=== PATIENT | female | born 1965 | race African-American/Black ===

== ENCOUNTER → 2016-09-12 | Outpatient (CLI) | payer BC ==
[2015-04-20 18:06] VITALS: BP 136/51
[~2016-09-12] MED LIST: AZIL1TAB2 PO; CYCL10TA2 PO; FERR-26 PO; GABA-586 PO; Hydrocodone/Acetaminophen PO; LISI-334 PO; MULT1TAB52 PO; OXYC-244 PO; WARF5TAB PO
--- NOTE | 2016-09-12 12:21 | RAD ---
EXAM: DIGITAL SCREEN BILAT W/CAD. HISTORY: Screening. COMPARISON: 08/14/2008. FINDINGS: Digital mammography was performed. Computer-aided detection (CAD) was utilized. The breast parenchyma demonstrates scattered fibroglandular densities (tissue density B). No dominant suspicious mass, suspicious microcalcifications, or architectural distortion is identified. Scattered, benign-appearing calcifications are present in both breasts. IMPRESSION: No mammographic evidence of malignancy. BI-RADS CATEGORY: 2 BENIGN FINDING(S) RECOMMENDED FOLLOW-UP: 12M 12 MONTH FOLLOW-UP PQRS compliance statement: Patient information was entered into a reminder system with a target due date for the next mammogram. Mammography is a sensitive method for finding small breast cancers, but it does not detect them all and is not a substitute for careful clinical examination. A negative mammogram does not negate a clinically suspicious finding and should not result in delay in biopsying a clinically suspicious abnormality. "Our facility is accredited by the [employer] Mammography Program."
== END | disposition home or self-care (01) ==
LOC: MAMMO 11:46
PROVIDERS: ATTEND Family Medicine
DX: Z12.31 Encounter for screening mammogram for malignant neoplasm of breast (principal)
CPT/HCPCS: 77052; G0202; 77067

== ENCOUNTER 2017-10-20 19:01 | Emergency (ER) | payer BC | END 2017-10-20 20:12 | disposition home or self-care (01) | LOC: ER 19:01 | DX: S46.912A Strain of unspecified muscle, fascia and tendon at shoulder and upper arm level, left arm, initial encounter (principal); I10 Essential (primary) hypertension; F17.200 Nicotine dependence, unspecified, uncomplicated; Z96.649 Presence of unspecified artificial hip joint; X58.XXXA Exposure to other specified factors, initial encounter; Y93.89 Activity, other specified; Y92.69 Other specified industrial and construction area as the place of occurrence of the external cause; Y99.8 Other external cause status | CPT/HCPCS: 99283 ==

== ENCOUNTER 2018-12-07 11:26 | Inpatient (IN) | payer BC ==
[~2018-12-07] VITALS: Ht 165.1 cm; Wt 108.1 kg
[2018-12-07] VITALS (10 sets, daily range): BP systolic 149–187; BP diastolic 52–81
[~2018-12-07 11:26] MED LIST changes: +CYCL5TAB PO; -FERR-26 PO; +FERR325T14 PO; -GABA-586 PO; +GABA300C18 PO; -OXYC-244 PO; +OXYC1TAB19 PO; +WARF-78 PO; -WARF5TAB PO
[2018-12-07] MEDS ORDERED: IV NORMAL SALINE 1000ML BAG 1,000 ML IV SCH (11:45)
[2018-12-07 12:05] LABS: BASO # 0.1 x10^3/uL (0.0-0.2); BASO % 1 % (0-3); EOS # 0.3 x10^3/uL (0.0-0.7); EOS % 5 % (0-3); HEMATOCRIT 43.3 % (36.0-47.0); HEMOGLOBIN 14.3 g/dL (12.0-15.5); LYMPH # 1.3 x10^3/uL (1.0-4.8); LYMPH % 18 % (24-48); MEAN CORPUSCULAR HEMOGLOBIN 31 pg (25-35); MEAN CORPUSCULAR HGB CONC 33 g/dL (31-37); MEAN CORPUSCULAR VOLUME 93 fL (79-100); MONO # 0.7 x10^3/uL (0.0-1.1); MONO % 10 % (0-9); NEUT # 4.6 x10^3uL (1.8-7.7); NEUT % 66 % (31-73); PLATELET COUNT 184 x10^3/uL (140-400); RED BLOOD COUNT 4.64 x10^6/uL (3.50-5.40); RED CELL DISTRIBUTION WIDTH 14.7 % (11.5-14.5); WHITE BLOOD COUNT 6.9 x10^3/uL (4.0-11.0)
--- NOTE | 2018-12-07 12:08 | RAD ---
EXAM: Chest, single view. HISTORY: Shortness of breath. COMPARISON: 01/16/2015 FINDINGS: A frontal view of the chest obtained. There is mild diffuse central predominant increased interstitial opacity. There is cardiomegaly. There is no consolidation, pleural effusion or pneumothorax. There is cervical spinal fusion instrumentation. IMPRESSION: 1. Mild central predominant increased interstitial opacity without zia congestion. 2. Cardiomegaly. Electronically signed by: Mami Montalvo MD (12/07/2018 12:05 PM) [place] [id number]
[2018-12-07] MEDS ORDERED: IPRATRPIUM/ALBUTEROL 0.5/2.5MG 3 ML NEBU. NEB ONE (12:15)
[2018-12-07] MEDS ORDERED: methylPREDNISolone SOD SUCC PF 125 MG/2 ML VIAL. IV ONE ×2 (12:15→12:30)
[2018-12-07] MEDS ORDERED: hydrALAZINE 20 MG/ML VIAL. IVP ONE ×2 (12:15→13:30)
[2018-12-07 12:19] LABS: CALCIUM 8.8 mg/dL (8.5-10.1); CREATININE 1.1 mg/dL (0.6-1.0); GFR 62.6
[2018-12-07 12:25] LABS: ALBUMIN 3.2 g/dL (3.4-5.0); ALBUMIN/GLOBULIN RATIO 0.9 (1.0-1.7); TOTAL BILIRUBIN 0.8 mg/dL (0.2-1.0); TOTAL PROTEIN 6.9 g/dL (6.4-8.2)
[2018-12-07] MEDS: niCARdipine 50 MG in IV NORMAL SALINE 250ML 250 ML IV PRN ×3 (13:39→19:29)
--- NOTE | 2018-12-07 13:50 | PHYS DOC ---
Past Medical History Past Medical History: Hypertension Past Surgical History: Hip Replacement Additional Past Surgical Histo: DISC REPLACEMENT Alcohol Use: None Drug Use: None Adult General Chief Complaint Chief Complaint: SHORTNESS OF BREATH HPI HPI Patient is a 52 year old female who presents with complaining of shortness of breath. Patient complaining of intermittent episodes of shortness of breath with exertion for the last 2-3 weeks that getting worse today. Patient complaining of substernal chest pain associated with shortness of breath and headache and generalized weakness. Patient states he had history of hypertension but doesn't take his medication as instructed. She denies fever and chills, focal neuro deficit, nausea and vomiting, blurred vision. Patient had blood pressure of more than 240 at arrival to ER. Review of Systems Review of Systems Constitutional: Denies fever or chills [] Eyes: Denies change in visual acuity, redness, or eye pain [] HENT: Denies nasal congestion or sore throat [] Respiratory: Denies cough, reports shortness of breath [] Cardiovascular: No additional information not addressed in HPI [] GI: Denies abdominal pain, nausea, vomiting, bloody stools or diarrhea [] : Denies dysuria or hematuria [] Musculoskeletal: Denies back pain or joint pain [] Integument: Denies rash or skin lesions [] Neurologic: Denies headache, focal weakness or sensory changes [] Endocrine: Denies polyuria or polydipsia [] All other systems were reviewed and found to be within normal limits, except as documented in this note. Current Medications Current Medications Current Medications Medications (Trade) Dose Ordered Sig/Nguyen Start Time Stop Time Status Last Admin Dose Admin Albuterol/ Ipratropium (Duoneb) 3 ml 1X ONCE 12/07/18 12:15 12/07/18 12:16 DC 12/07/18 12:37 3 ML Hydralazine HCl (Apresoline Inj) 10 mg 1X ONCE 12/07/18 13:30 12/07/18 13:31 DC 12/07/18 13:36 10 MG Methylprednisolone Sodium Succinate (SOLU-Medrol 125MG VIAL) 125 mg 1X ONCE 12/07/18 12:30 12/07/18 12:31 DC Nicardipine HCl 50 mg/Sodium Chloride 250 ml @ 25 mls/hr CONT PRN 12/07/18 13:30 12/07/18 13:39 25 MLS/HR Sodium Chloride 1,000 ml @ 1,000 mls/hr Q1H 12/07/18 11:45 12/07/18 12:44 DC 12/07/18 12:25 1,000 MLS/HR Allergies Allergies Allergies Coded Allergies Type Severity Reaction Last Updated Verified No Known Drug Allergies 04/17/15 No Physical Exam Physical Exam Constitutional: Well developed, well nourished, mild distress, non-toxic appearance. [] HENT: Normocephalic, atraumatic. Eyes: PERRLA, EOMI, conjunctiva normal, no discharge. [] Neck: Normal range of motion, no tenderness, supple, no stridor. [] Cardiovascular: Bradycardia, no murmur [] Lungs & Thorax: Bilateral breath sounds clear to auscultation [] Abdomen: Bowel sounds normal, soft, no tenderness, no masses, no pulsatile masses. [] Skin: Warm, dry, no erythema, no rash. [] Back: No tenderness, no CVA tenderness. [] Extremities: No tenderness, no cyanosis, no clubbing, ROM intact, no edema. [] Neurologic: Alert and oriented X 3, normal motor function, normal sensory function, no focal deficits noted. [] Psychologic: Affect normal, judgement normal, mood normal. [] Current Patient Data Vital Signs Vital Signs Date Time Temp Pulse Resp B/P (MAP) Pulse Ox O2 Delivery O2 Flow Rate FiO2 12/07/18 13:15 50 32 228/105 (146) 12/07/18 12:40 94 Room Air 12/07/18 11:26 98.8 98.8 Lab Values Laboratory Tests Test 12/07/18 11:50 White Blood Count 6.9 x10^3/uL (4.0-11.0) Red Blood Count 4.64 x10^6/uL (3.50-5.40) Hemoglobin 14.3 g/dL (12.0-15.5) Hematocrit 43.3 % (36.0-47.0) Mean Corpuscular Volume 93 fL (79-100) Mean Corpuscular Hemoglobin 31 pg (25-35) Mean Corpuscular Hemoglobin Concent 33 g/dL (31-37) Red Cell Distribution Width 14.7 % (11.5-14.5) H Platelet Count 184 x10^3/uL (140-400) Neutrophils (%) (Auto) 66 % (31-73) Lymphocytes (%) (Auto) 18 % (24-48) L Monocytes (%) (Auto) 10 % (0-9) H Eosinophils (%) (Auto) 5 % (0-3) H Basophils (%) (Auto) 1 % (0-3) Neutrophils # (Auto) 4.6 x10^3uL (1.8-7.7) Lymphocytes # (Auto) 1.3 x10^3/uL (1.0-4.8) Monocytes # (Auto) 0.7 x10^3/uL (0.0-1.1) Eosinophils # (Auto) 0.3 x10^3/uL (0.0-0.7) Basophils # (Auto) 0.1 x10^3/uL (0.0-0.2) Prothrombin Time 12.9 SEC (11.7-14.0) Prothrombin Time INR 1.0 (0.8-1.1) D-Dimer (Kaley) 0.65 ug/mlFEU (0.00-0.50) H Sodium Level 141 mmol/L (136-145) Potassium Level 4.0 mmol/L (3.5-5.1) Chloride Level 104 mmol/L (98-107) Carbon Dioxide Level 28 mmol/L (21-32) Anion Gap 9 (6-14) Blood Urea Nitrogen 17 mg/dL (7-20) Creatinine 1.1 mg/dL (0.6-1.0) H Estimated GFR (Cockcroft-Gault) 62.6 BUN/Creatinine Ratio 15 (6-20) Glucose Level 100 mg/dL (70-99) H Lactic Acid Level 0.8 mmol/L (0.4-2.0) Calcium Level 8.8 mg/dL (8.5-10.1) Total Bilirubin 0.8 mg/dL (0.2-1.0) Aspartate Amino Transferase (AST) 27 U/L (15-37) Alanine Aminotransferase (ALT) 47 U/L (14-59) Alkaline Phosphatase 99 U/L (46-116) Creatine Kinase 214 U/L (26-192) H Troponin I Quantitative 0.153 ng/mL (0.000-0.055) SN-Jgr-B-Type Natriuretic Peptide 2166 pg/mL (0-124) H Total Protein 6.9 g/dL (6.4-8.2) Albumin 3.2 g/dL (3.4-5.0) L Albumin/Globulin Ratio 0.9 (1.0-1.7) L Triglycerides Level 46 mg/dL (0-150) Cholesterol Level 164 mg/dL (0-200) LDL Cholesterol, Calculated 106 mg/dL (0-100) H VLDL Cholesterol, Calculated 9 mg/dL (0-40) Non-HDL Cholesterol Calculated 115 mg/dL (0-129) HDL Cholesterol 49 mg/dL (40-60) Cholesterol/HDL Ratio 3.3 Thyroid Stimulating Hormone (TSH) 0.801 uIU/mL (0.358-3.74) Laboratory Tests 12/07/18 11:50 Laboratory Tests 12/07/18 11:50 EKG EKG Patient interpreted by me. EKG at 1142 showed sinus bradycardia at rate of 57 with multiple artifact, right john axis, no acute ST and T-wave abnormalities, Radiology/Procedures Radiology/Procedures [facility] [address] [place] [address] IMAGING REPORT Signed PATIENT: LEXY JON ACCOUNT: [id number] : 1965 LOCATION: ER AGE: 52 SEX: F EXAM STATUS: REG ER ORD. PHYSICIAN: MARTHA VALENCIA MD REASON: shortness of breath PROCEDURE: PORTABLE CHEST 1V EXAM: Chest, single view. HISTORY: Shortness of breath. COMPARISON: 01/16/2015 FINDINGS: A frontal view of the chest obtained. There is mild diffuse central predominant increased interstitial opacity. There is cardiomegaly. There is no consolidation, pleural effusion or pneumothorax. There is cervical spinal fusion instrumentation. IMPRESSION: 1. Mild central predominant increased interstitial opacity without zia congestion. 2. Cardiomegaly. Electronically signed by: Mami Car MD (12/07/2018 12:05 PM) [facility] DICTATED and SIGNED BY: MAMI CAR MD DATE: 12/07/18 3301 Course & Med Decision Making Course & Med Decision Making Pertinent Labs and Imaging studies reviewed. (See chart for details) Evaluation of patient in ER showed 52-year-old male patient with history of hypertension without taking her medication presented to ER with complaining of shortness of breath and chest pain and headache. Patient had blood pressure more than 240/140 with bradycardia at arrival to ER. Patient treated with hydralazine IV 10 mg 2 and coughing today because of intermittent elevation of blood pressure. Patient requiring admission for further evaluation and treatment. Discussed with Dr. Aguilera who is in agreement with admission. Discussed findings and plan with patient and family, who acknowledge understanding and agreement. Dragon Disclaimer Dragon Disclaimer This electronic medical record was generated, in whole or in part, using a voice recognition dictation system. Departure Departure Impression: Primary Impression: Malignant hypertension Additional Impressions: Elevated troponin I level CHF (congestive heart failure) Shortness of breath Disposition: ADMITTED INPATIENT (@1348) Admitting Physician: Lindsay Aguilera (accepted admission at 1347) Condition: GUARDED Referrals: BROOKE HOLLINS MD (PCP) Critical Care Time Critical care time was 60 minutes exclusive of procedures. Problem Qualifiers MARTHA VALENCIA MD Dec 07, 2018 13:50
[2018-12-07] MEDS ORDERED: oxyCODONE/APAP 7.5/325 1 TAB TABLET PO PRN (14:00)
[2018-12-07] MEDS ORDERED: TEMAZEPAM 7.5 MG CAPSULE PO PRN (14:15)
--- NOTE | 2018-12-07 14:19 | PDOC1 ---
History and Physical Date of Admission Date of Admission DATE: 12/07/18 TIME: 14:15 Identification/Chief Complaint Chief Complaint Headache, intermittent chest pain, SOA Source Source: Caregiver, Chart review, Patient History of Present Illness History of Present Illness 42-year-old obese female who does not see a PCP regularly, admits to not being compliant with her combo diuretic/ARB pill. Comes in because of intermittent SOA, left-sided chest pain and headache for about 2 weeks. Blood pressure is 240/130 on arrival. Give hydralazine but no resolve, now on Cardene drip with blood pressure 200s. Mild troponin 0.153 with a BNP of 2166. Eyes are flushed, still looks uncomfortable headache and neck pain. We'll admit to ICU for hypertensive emergency. Seen at ER, dw family my plan. SHe is not taking gabapentin anymore-she had that then she had neck surgery She is not taking warfarin anymore-she was put on it after an orthopedic surgery Past Medical History Cardiovascular: HTN, Hyperlipidemia Pulmonary: No pertinent hx GI: Peptic Ulcer disease Heme/Onc: No pertinent hx Hepatobiliary: No pertinent hx Psych: No pertinent hx Musculoskeletal: Osteoarthritis Rheumatologic: No pertinent hx Infectious disease: No pertinent hx Renal/: No pertinent hx Endocrine: No pertinent hx Past Surgical History Past Surgical History: Other (neck sx) Family History Family History: Diabetes, Heart Disease Social History Smoke: <1 pack per day ALCOHOL: none Drugs: None Current Problem List Problem List Problems Medical Problems: (1) CHF (congestive heart failure) Status: Acute (2) Elevated troponin I level Status: Acute (3) Malignant hypertension Status: Acute (4) Shortness of breath Status: Acute Current Medications Current Medications Current Medications Sodium Chloride 1,000 ml @ 1,000 mls/hr Q1H IV Last administered on 12/07/18at 12:25; Start 12/07/18 at 11:45; Stop 12/07/18 at 12:44; Status DC Albuterol/ Ipratropium (Duoneb) 3 ml 1X ONCE NEB Last administered on at 12:37; Start 12/07/18 at 12:15; Stop 12/07/18 at 12:16; Status DC Methylprednisolone Sodium Succinate (SOLU-Medrol 125MG VIAL) 150 mg 1X ONCE IV Last administered on 12/07/18at 12:23; Start 12/07/18 at 12:15; Stop 12/07/18 at 12:24; Status DC Hydralazine HCl (Apresoline Inj) 10 mg 1X ONCE IVP Last administered on at 12:24; Start 12/07/18 at 12:15; Stop 12/07/18 at 12:16; Status DC Methylprednisolone Sodium Succinate (SOLU-Medrol 125MG VIAL) 125 mg 1X ONCE IV ; Start 12/07/18 at 12:30; Stop 12/07/18 at 12:31; Status DC Hydralazine HCl (Apresoline Inj) 10 mg 1X ONCE IVP Last administered on at 13:36; Start 12/07/18 at 13:30; Stop 12/07/18 at 13:31; Status DC Nicardipine HCl 50 mg/Sodium Chloride 250 ml @ 25 mls/hr CONT PRN IV SEE I/O RECORD Last administered on 12/07/18at 13:39; Start 12/07/18 at 13:30 Ferrous Sulfate (Feosol) 325 mg BID PO ; Start 12/07/18 at 21:00 Gabapentin (Neurontin) 300 mg TID PO ; Start 12/07/18 at 15:00 Oxycodone/ Acetaminophen (Percocet 7.5/ 325) 1 tab PRN Q4HRS PRN PO pain relief ; Start 12/07/18 at 14:00 Non-Formulary Medication (Azilsartan Med/ Chlorthalidone (Edarbyclor 40-25 Mg Tablet)) 1 each DAILY PO ; Start 12/08/18 at 09:00; Status UNV Cyclobenzaprine HCl (Flexeril) 5 mg QHS PO ; Start 12/07/18 at 21:00 Multivitamins (Thera M Plus) 1 tab DAILY PO ; Start 12/07/18 at 15:00 Non-Formulary Medication (Warfarin Sodium (Coumadin)) 1 tab DAILY PO ; Start 06/18 at 09:00; Status UNV Lisinopril (Prinivil) 10 mg DAILY PO ; Start 12/07/18 at 15:00; Stop 12/07/18 at 15:00; Status DC Hydrochlorothiazide (Hydrodiuril) 25 mg DAILY PO ; Start 4/9/19 at 15:00 Aspirin (Ecotrin) 325 mg DAILYWBKFT PO ; Start 12/07/18 at 15:00 Losartan Potassium (Cozaar) 50 mg DAILY PO ; Start 12/07/18 at 15:00 Chlorthalidone (Thalitone) 25 mg DAILY PO ; Start 12/07/18 at 15:00 Active Scripts Active Cyclobenzaprine Hcl 5 Mg Tablet 1 Tab PO QHS Neurontin (Gabapentin) 300 Mg Capsule 300 Mg PO TID Reported Percocet 7.5-325 Mg Tablet (Oxycodone/Acetaminophen) 1 Each Tablet 1-2 Tab PO PRN Q4HRS PRN LAST DOSE GIVEN: DATE:04-20-15 TIME:12:30 p.m. NEXT DOSE DUE: DATE:04-20-15 TIME:4:30 p.m. if needed for pain Coumadin (Warfarin Sodium) 5 Mg Tablet 1 Tab PO DAILY Ferrous Sulfate 325 Mg Tablet 1 Tab PO BID Multivitamins (Multivitamin) 1 Each Tablet 1 Each PO DAILY Edarbyclor 40-25 Mg Tablet (Azilsartan/Chlorthalidone) 1 Each Tablet 1 Each PO DAILY Allergies Allergies: Coded Allergies: No Known Drug Allergies (Unverified , 04/17/15) ROS Review of System As per history of present illness, the rest of ROS 14 point negative Physical Exam General: Alert, Oriented X3, Cooperative, No acute distress, Other (looks uncomfortable) HEENT: Atraumatic, EOMI, Other (eyes are flushed) Lungs: Clear to auscultation, Normal air movement Heart: S1S2, RRR, no thrills, no rubs, no gallops, no murmurs Cardiovascular: S1, S2 Breasts: Normal, Rt breast nml w/o mass, Lt breast nml w/o mass, Nipples normal Abdomen: Normal bowel sounds, Soft, No tenderness, No hepatosplenomegaly, No masses Rectal Exam: not examined PELVIC: Nml ext genitalia Extremities: No clubbing, No cyanosis, No edema, Normal pulses, No tenderness/ swelling Skin: No rashes, No breakdown, No significant lesion Neuro: Normal gait, Normal speech, Strength at 5/5 X4 ext, Normal tone, Sensation intact, Cranial nerves 3-12 NL, Reflexes 2+ Psych/Mental Status: Mental status NL, Mood NL Vitals Vitals Vital Signs Date Time Temp Pulse Resp B/P (MAP) Pulse Ox O2 Delivery O2 Flow Rate FiO2 12/07/18 13:51 48 27 199/82 (121) 99 Nasal Cannula 3.0 12/07/18 11:26 98.8 98.8 Labs Labs Laboratory Tests Test 12/07/18 11:50 White Blood Count 6.9 x10^3/uL (4.0-11.0) Red Blood Count 4.64 x10^6/uL (3.50-5.40) Hemoglobin 14.3 g/dL (12.0-15.5) Hematocrit 43.3 % (36.0-47.0) Mean Corpuscular Volume 93 fL (79-100) Mean Corpuscular Hemoglobin 31 pg (25-35) Mean Corpuscular Hemoglobin Concent 33 g/dL (31-37) Red Cell Distribution Width 14.7 % (11.5-14.5) Platelet Count 184 x10^3/uL (140-400) Neutrophils (%) (Auto) 66 % (31-73) Lymphocytes (%) (Auto) 18 % (24-48) Monocytes (%) (Auto) 10 % (0-9) Eosinophils (%) (Auto) 5 % (0-3) Basophils (%) (Auto) 1 % (0-3) Neutrophils # (Auto) 4.6 x10^3uL (1.8-7.7) Lymphocytes # (Auto) 1.3 x10^3/uL (1.0-4.8) Monocytes # (Auto) 0.7 x10^3/uL (0.0-1.1) Eosinophils # (Auto) 0.3 x10^3/uL (0.0-0.7) Basophils # (Auto) 0.1 x10^3/uL (0.0-0.2) D-Dimer (Kaley) 0.65 ug/mlFEU (0.00-0.50) Sodium Level 141 mmol/L (136-145) Potassium Level 4.0 mmol/L (3.5-5.1) Chloride Level 104 mmol/L (98-107) Carbon Dioxide Level 28 mmol/L (21-32) Anion Gap 9 (6-14) Blood Urea Nitrogen 17 mg/dL (7-20) Creatinine 1.1 mg/dL (0.6-1.0) Estimated GFR (Cockcroft-Gault) 62.6 BUN/Creatinine Ratio 15 (6-20) Glucose Level 100 mg/dL (70-99) Lactic Acid Level 0.8 mmol/L (0.4-2.0) Calcium Level 8.8 mg/dL (8.5-10.1) Total Bilirubin 0.8 mg/dL (0.2-1.0) Aspartate Amino Transf (AST/SGOT) 27 U/L (15-37) Alanine Aminotransferase (ALT/SGPT) 47 U/L (14-59) Alkaline Phosphatase 99 U/L (46-116) Creatine Kinase 214 U/L (26-192) Troponin I Quantitative 0.153 ng/mL (0.000-0.055) FK-Gde-D-Type Natriuretic Peptide 2166 pg/mL (0-124) Total Protein 6.9 g/dL (6.4-8.2) Albumin 3.2 g/dL (3.4-5.0) Albumin/Globulin Ratio 0.9 (1.0-1.7) Laboratory Tests Test 12/07/18 11:50 White Blood Count 6.9 x10^3/uL (4.0-11.0) Red Blood Count 4.64 x10^6/uL (3.50-5.40) Hemoglobin 14.3 g/dL (12.0-15.5) Hematocrit 43.3 % (36.0-47.0) Mean Corpuscular Volume 93 fL (79-100) Mean Corpuscular Hemoglobin 31 pg (25-35) Mean Corpuscular Hemoglobin Concent 33 g/dL (31-37) Red Cell Distribution Width 14.7 % (11.5-14.5) Platelet Count 184 x10^3/uL (140-400) Neutrophils (%) (Auto) 66 % (31-73) Lymphocytes (%) (Auto) 18 % (24-48) Monocytes (%) (Auto) 10 % (0-9) Eosinophils (%) (Auto) 5 % (0-3) Basophils (%) (Auto) 1 % (0-3) Neutrophils # (Auto) 4.6 x10^3uL (1.8-7.7) Lymphocytes # (Auto) 1.3 x10^3/uL (1.0-4.8) Monocytes # (Auto) 0.7 x10^3/uL (0.0-1.1) Eosinophils # (Auto) 0.3 x10^3/uL (0.0-0.7) Basophils # (Auto) 0.1 x10^3/uL (0.0-0.2) D-Dimer (Kaley) 0.65 ug/mlFEU (0.00-0.50) Sodium Level 141 mmol/L (136-145) Potassium Level 4.0 mmol/L (3.5-5.1) Chloride Level 104 mmol/L (98-107) Carbon Dioxide Level 28 mmol/L (21-32) Anion Gap 9 (6-14) Blood Urea Nitrogen 17 mg/dL (7-20) Creatinine 1.1 mg/dL (0.6-1.0) Estimated GFR (Cockcroft-Gault) 62.6 BUN/Creatinine Ratio 15 (6-20) Glucose Level 100 mg/dL (70-99) Lactic Acid Level 0.8 mmol/L (0.4-2.0) Calcium Level 8.8 mg/dL (8.5-10.1) Total Bilirubin 0.8 mg/dL (0.2-1.0) Aspartate Amino Transf (AST/SGOT) 27 U/L (15-37) Alanine Aminotransferase (ALT/SGPT) 47 U/L (14-59) Alkaline Phosphatase 99 U/L (46-116) Creatine Kinase 214 U/L (26-192) Troponin I Quantitative 0.153 ng/mL (0.000-0.055) DU-Rts-C-Type Natriuretic Peptide 2166 pg/mL (0-124) Total Protein 6.9 g/dL (6.4-8.2) Albumin 3.2 g/dL (3.4-5.0) Albumin/Globulin Ratio 0.9 (1.0-1.7) VTE Prophylaxis Ordered VTE Prophylaxis Devices: Yes VTE Pharmacological Prophylaxi: Yes Assessment/Plan Assessment/Plan Hypertensive emergency Obesity, BMI 42 Noncompliance History neck surgery-off gabapentin and flexeril History of orthopedic surgery-off warfarin Plan: Admit 2 [place] CArdene gtt cards consult ICU Check lipids I did start lisinopril HCTZ combo pill for tomorrow Full code Seen at ER discussed with family Further recs pending course Other supprotive meds CC30 NAVEED CAR MD Dec 07, 2018 14:19
[2018-12-07 14:25] LABS: PROTHROMBIN TIME PATIENT 12.9 SEC (11.7-14.0)
[2018-12-07] MEDS ORDERED: ONDANSETRON PF 4 MG/2 ML VIAL. ONE (14:32)
[2018-12-07] MEDS: ASPIRIN ENTERIC COATED 325 MG TABLET.DR. PO SCH (14:58)
[2018-12-07] MEDS: CHLORTHALIDONE 25 MG TABLET. PO SCH (14:58)
[2018-12-07] MEDS: ONDANSETRON PF 4 MG/2 ML VIAL. IV PRN (14:59)
[2018-12-07] MEDS ORDERED: LISINOPRIL 10 MG TABLET PO SCH (15:00)
[2018-12-07] MEDS ORDERED: hydroCHLOROthiazide 25 MG TABLET PO SCH (15:00)
[2018-12-07] MEDS ORDERED: LOSARTAN POTASSIUM 50 MG TABLET. PO SCH (15:00)
[2018-12-07] MEDS ORDERED: GABAPENTIN 300 MG CAPSULE. PO SCH (15:00)
[2018-12-07] MEDS ORDERED: MULTIVITAMIN with MINERAL TABLET. PO SCH (15:00)
[2018-12-07 15:36] LABS: CHOLESTEROL/HDL RATIO 3.3
--- NOTE | 2018-12-07 15:51 | PDOC2 ---
KARINA FLAHERTY OPERATIONAL COMMUNICATION CHIEF 12/07/18 1551: CARDIAC CONSULT DATE OF CONSULT Date of Consult DATE: 12/07/18 TIME: 15:42 REASON FOR CONSULT Reason for Consult: HTN,SOA REFERRING PHYSICIAN Referring Physician: Endy SOURCE Source: Chart review, Patient HISTORY OF PRESENT ILLNESS HISTORY OF PRESENT ILLNESS This is a pleasant 52 yo female admitted for complains of SOA and not feeling well. Reports that in the last 2 weeks she has becoming more SOA, Her legs have become swollen. No chest pain per se but at times has some tingling to her left hand. No jaw tightness but has been seeing spots at times but GARCIA. Positive for orthopnea, feeling bloated. Positive for PND. She has been skipping her BP meds at times. Positive for DAILEY but no exertional chest pain. [place] at times her chest is pounding. she does not see any outpt liaison planner. No ETOH or recreational drug use but chronic tobacco user. Reports high dose routine use of NSAID, consumption of soda, processed food and has gained some wt in the last 6 months at least about 20 pounds. She may have been told of MYCHAL in the past but no recollection of her being told of CPAP need. No past hx of CAD, arrhythmias. No passing out, falls , any recent infection or any recent injury. PAST MEDICAL HISTORY Cardiovascular: HTN, Hyperlipidemia, Valve insufficiency, Pulmonary hypertension Pulmonary: No pertinent hx CENTRAL NERVOUS SYSTEM: Other (None) GI: GERD, Peptic Ulcer disease Heme/Onc: No pertinent hx Hepatobiliary: No pertinent hx Psych: No pertinent hx Musculoskeletal: low back pain, Osteoarthritis, Other (lumbar and cervical stenosis) Rheumatologic: No pertinent hx Infectious disease: No pertinent hx ENT: No pertinent hx Renal/: No pertinent hx Endocrine: No pertinent hx Dermatology: No pertinent hx PAST SURGICAL HISTORY Past Surgical History: Total hip replacement (right), Other (cervical fusion) FAMILY HISTORY Family History Diabetes (father), Heart Disease (mother; sister with cardiac dysrhythmia and ICD) SOCIAL HISTORY Smoke: 1 pack per day (>30 yrs) ALCOHOL: none Drugs: None Lives: with Family CURRENT MEDICATIONS CURRENT MEDICATIONS Current Medications Medications (Trade) Dose Ordered Sig/Nguyen Route PRN Reason Start Time Stop Time Status Last Admin Dose Admin Sodium Chloride 1,000 ml @ 1,000 mls/hr Q1H IV 12/07/18 11:45 12/07/18 12:44 DC 12/07/18 12:25 Albuterol/ Ipratropium (Duoneb) 3 ml 1X ONCE NEB 12/07/18 12:15 12/07/18 12:16 DC 12/07/18 12:37 Methylprednisolone Sodium Succinate (SOLU-Medrol 125MG VIAL) 150 mg 1X ONCE IV 12/07/18 12:15 12/07/18 12:24 DC 12/07/18 12:23 Hydralazine HCl (Apresoline Inj) 10 mg 1X ONCE IVP 12/07/18 12:15 12/07/18 12:16 DC 12/07/18 12:24 Hydralazine HCl (Apresoline Inj) 10 mg 1X ONCE IVP 12/07/18 13:30 12/07/18 13:31 DC 12/07/18 13:36 Nicardipine HCl 50 mg/Sodium Chloride 250 ml @ 25 mls/hr CONT PRN IV SEE I/O RECORD 12/07/18 13:30 12/07/18 13:39 Multivitamins (Thera M Plus) 1 tab DAILY PO 12/07/18 15:00 12/07/18 14:58 Hydrochlorothiazide (Hydrodiuril) 25 mg DAILY PO 12/07/18 15:00 12/07/18 15:34 DC 12/07/18 14:59 Aspirin (Ecotrin) 325 mg DAILYWBKFT PO 12/07/18 15:00 12/07/18 14:58 Chlorthalidone (Thalitone) 25 mg DAILY PO 12/07/18 15:00 12/07/18 14:58 Ondansetron HCl (Zofran) 4 mg PRN Q6HRS PRN IV NAUSEA/VOMITING 12/07/18 14:45 12/07/18 14:59 ALLERGIES ALLERGIES: Coded Allergies: No Known Drug Allergies (Unverified , 04/17/15) ROS Review of System 14 point ROS evaluated with pertinent positives noted per HPI PHYSICAL EXAM General: Alert, Oriented X3, Cooperative, No acute distress HEENT: Atraumatic, Mucous membr. moist/pink Lungs: Other (diminished bases) Heart: Regular rate (SR), Other (3/6 systolic murmur to LLS border; S4) Extremities: No cyanosis, Other (3+ bilateral LE pitting edema) Skin: No breakdown, No significant lesion Neuro: Normal speech, Sensation intact Psych/Mental Status: Mental status NL, Mood NL MUSCULOSKELETAL: Osteoarthritic changes both hands VITALS VITALS Vital Signs Date Time Temp Pulse Resp B/P (MAP) Pulse Ox O2 Delivery O2 Flow Rate FiO2 12/07/18 15:00 54 22 173/72 (105) 94 Nasal Cannula 2.0 12/07/18 14:45 98.1 98.1 LABS Lab: Laboratory Tests Test 12/07/18 11:50 White Blood Count 6.9 x10^3/uL (4.0-11.0) Red Blood Count 4.64 x10^6/uL (3.50-5.40) Hemoglobin 14.3 g/dL (12.0-15.5) Hematocrit 43.3 % (36.0-47.0) Mean Corpuscular Volume 93 fL (79-100) Mean Corpuscular Hemoglobin 31 pg (25-35) Mean Corpuscular Hemoglobin Concent 33 g/dL (31-37) Red Cell Distribution Width 14.7 % (11.5-14.5) Platelet Count 184 x10^3/uL (140-400) Neutrophils (%) (Auto) 66 % (31-73) Lymphocytes (%) (Auto) 18 % (24-48) Monocytes (%) (Auto) 10 % (0-9) Eosinophils (%) (Auto) 5 % (0-3) Basophils (%) (Auto) 1 % (0-3) Neutrophils # (Auto) 4.6 x10^3uL (1.8-7.7) Lymphocytes # (Auto) 1.3 x10^3/uL (1.0-4.8) Monocytes # (Auto) 0.7 x10^3/uL (0.0-1.1) Eosinophils # (Auto) 0.3 x10^3/uL (0.0-0.7) Basophils # (Auto) 0.1 x10^3/uL (0.0-0.2) Prothrombin Time 12.9 SEC (11.7-14.0) Prothromb Time International Ratio 1.0 (0.8-1.1) D-Dimer (Kaley) 0.65 ug/mlFEU (0.00-0.50) Sodium Level 141 mmol/L (136-145) Potassium Level 4.0 mmol/L (3.5-5.1) Chloride Level 104 mmol/L (98-107) Carbon Dioxide Level 28 mmol/L (21-32) Anion Gap 9 (6-14) Blood Urea Nitrogen 17 mg/dL (7-20) Creatinine 1.1 mg/dL (0.6-1.0) Estimated GFR (Cockcroft-Gault) 62.6 BUN/Creatinine Ratio 15 (6-20) Glucose Level 100 mg/dL (70-99) Lactic Acid Level 0.8 mmol/L (0.4-2.0) Calcium Level 8.8 mg/dL (8.5-10.1) Total Bilirubin 0.8 mg/dL (0.2-1.0) Aspartate Amino Transf (AST/SGOT) 27 U/L (15-37) Alanine Aminotransferase (ALT/SGPT) 47 U/L (14-59) Alkaline Phosphatase 99 U/L (46-116) Creatine Kinase 214 U/L (26-192) Troponin I Quantitative 0.153 ng/mL (0.000-0.055) HW-Std-L-Type Natriuretic Peptide 2166 pg/mL (0-124) Total Protein 6.9 g/dL (6.4-8.2) Albumin 3.2 g/dL (3.4-5.0) Albumin/Globulin Ratio 0.9 (1.0-1.7) Triglycerides Level 46 mg/dL (0-150) Cholesterol Level 164 mg/dL (0-200) LDL Cholesterol, Calculated 106 mg/dL (0-100) VLDL Cholesterol, Calculated 9 mg/dL (0-40) Non-HDL Cholesterol Calculated 115 mg/dL (0-129) HDL Cholesterol 49 mg/dL (40-60) Cholesterol/HDL Ratio 3.3 ECHOCARDIOGRAM ECHOCARDIOGRAM <Conclusion> The left ventricle is normal size. The left ventricular systolic function is normal and the ejection fraction is within normal range. The Ejection Fraction is 55-60%. There is borderline concentric left ventricular hypertrophy. The interatrial septum is intact with no evidence for an atrial septal defect or patent foramen ovale as noted on 2-D or Doppler imaging. A technically difficult bubble study showed no interatrial shunt. There is no significant aortic valvular stenosis. Doppler and Color Flow revealed no significant aortic regurgitation. Doppler and Color Flow revealed mild mitral regurgitation. Doppler and Color Flow revealed mild tricuspid regurgitation. The PA pressure was estimated at 44 mmHg. There is a trace pericardial effusion with no hemodynamic significance. DATE: 01/17/151740 ASSESSMENT/PLAN ASSESSMENT/PLAN 1. Malignant HTN: due to Lifestyle issues and inconsistent use of BP meds and NSAID use 2. Acute on chronic diastolic CHF; induced by above 3. Elevated troponin: mild at 0.15. Suspect demand mediated, type 2 as above. EKG SB no acute ST-T wave changes, no CP 4. Tobaccoism 5. HLP 6. Obesity 7. Sinus bradycardia: suspect reflexively induced by high BP, no pauses and no syncopal nor presyncopal event at home 8. Chronic high dose NSAID use with chronic low back pain. 6 tabs ibuprofen and 6 tabs of aleve a day avg. Recommendations 1. No AV timothy blocking agents. Agree with cardene. Will start titrating down per BP trend. Start on amlodipine. Hydralazine IV PRN 2. Restart home meds. ARB to sub losartan at 100 mg and continue chlorthalidone. 3. No IV lasix given but good UOP with HCTZ and chlorthalidone given. discussed med compliance. will reeval tomorow if any need for loop diuretic is warranted. 4. TTE, TSH, UDS. Trend troponin 5. Smoking cessation 6. Discussed lifestyle modification. Wt loss, minimizing processed food, exercise, DASH diet, decreaseing soda. Stop routine NSAID and only do PRN 7. Will need outpt MYCHAL workup. 8. Start on PPI. 9. Encourage to see ophthalmology routine appt. 10. Given her risk factors, ischemic workup likely as an outpt in the for m of stress test pending current workup result. ALFREDA RUBIO MD 12/08/18 0943: CARDIAC CONSULT ASSESSMENT/PLAN ASSESSMENT/PLAN Patient seen and examined 12/07/18. Agree with FOUNDRY MELT SUPERVISOR's assessment and plan. Agree with starting Norvasc and titrate Cardene off as tolerated Continue diuretics for acute on chronic diastolic heart failure Slight troponin elevation probably demand ischemia secondary to uncontrolled hypertension 2-D echo showed normal LV function without any wall motion abnormalities Plan ischemic evaluation as an outpatient Thank you for your consultation KARINA FLAHERTY OPERATIONAL COMMUNICATION CHIEF Dec 07, 2018 15:51 ALFREDA RUBIO MD Dec 08, 2018 09:43
[2018-12-07] MEDS ORDERED: HYDR-2765 PO (15:56)
--- NOTE | 2018-12-07 16:11 | CARD ---
MR#: [id number] Date of Study: 12/07/2018 Ordering Physician: NAVEED CAR, Referring Physician: NAVEED CAR, Tech: Cha Madison APPROVED REPORT EXAM: Two-dimensional and M-mode echocardiogram with Doppler and color Doppler. Other Information Quality : AverageHR: 60bpm INDICATION Dyspnea Hypertension/HCVD Congestive Heart Failure RISK FACTORS Hyperlipidemia 2D DIMENSIONS RVDd4.1 (2.9-3.5cm)Left Atrium(2D)4.8 (1.6-4.0cm) IVSd1.3 (0.7-1.1cm)Aortic Root(2D)2.5 (2.0-3.7cm) LVDd4.9 (3.9-5.9cm)LVOT Diameter2.1 (1.8-2.4cm) PWd1.4 (0.7-1.1cm)LVDs3.2 (2.5-4.0cm) FS (%) 35.0 %SV72.2 ml LVEF(%)64.1 (>50%) Aortic Valve AoV Peak Lj.205.9cm/sAoV VTI45.7cm AO Peak GR.17.0mmHgLVOT VTI 31.78cm AO Mean GR.13mmHg Mitral Valve MV E Vifybnyt081.7cm/sMV DECEL [id number] MV A Fzodxdhx12.0cm/sE/A Ratio1.8 TDI Lateral E' P. V5.75cm/sMedial E' P. V4.24cm/s E/Lateral E'17.9E/Medial E'24.2 Tricuspid Valve TR P. Robvmsih345vo/sRAP UCOOBVVJ83faRt TR Peak Gr.97jwYjEOYH09vzMp Pulmonary Vein S1 Wisqtgzd44.9cm/sS2 Sqbtawrw23.57cm/s D2 Peebuvbz86.6cm/sPVa fqbfpsxa23krqs LEFT VENTRICLE The left ventricle is normal size. There is moderate concentric left ventricular hypertrophy. The Eje ction Fraction is >55%. The left ventricular systolic function is normal and the ejection fraction is within normal range. There is normal LV segmental wall motion. Transmitral Doppler flow pattern is G rade I-abnormal relaxation pattern. RIGHT VENTRICLE The right ventricle is normal size. There is normal right ventricular wall thickness. The right ventr icular systolic function is normal. ATRIA The left atrium is mildly dilated. The right atrium is borderline dilated. The interatrial septum is intact with no evidence for an atrial septal defect or patent foramen ovale as noted on 2-D or Dopple r imaging. AORTIC VALVE The aortic valve is normal in structure and function. Doppler and Color Flow revealed no significant aortic regurgitation. There is no significant aortic valvular stenosis. MITRAL VALVE The mitral valve is normal in structure and function. There is no evidence of mitral valve prolapse. There is no mitral valve stenosis. Doppler and Color-flow revealed trace mitral regurgitation. TRICUSPID VALVE The tricuspid valve is normal in structure and function. Doppler and Color Flow revealed trace tricus pid regurgitation with an estimated PAP of 43 mmHg. There is no tricuspid valve stenosis. PULMONIC VALVE Doppler and Color Flow revealed trace pulmonic valvular regurgitation. There is no pulmonic valvular stenosis. GREAT VESSELS The aortic root is normal in size. The IVC is dilated and collapses <50% with inspiration. PERICARDIAL EFFUSION There is no evidence of significant pericardial effusion. Critical Notification Critical Value: No <Conclusion> The Ejection Fraction is >55%. The left ventricular systolic function is normal and the ejection frac tion is within normal range. There is normal LV segmental wall motion. There is moderate concentric left ventricular hypertrophy. Doppler and Color Flow revealed trace tricuspid regurgitation with an estimated PAP of 43 mmHg. The IVC is dilated and collapses <50% with inspiration. Signed by : Christiano Snider, Electronically Approved : 12/07/2018 16:10:49
[2018-12-07 16:16] LABS: BILIRUBIN,URINE NEGATIVE (NEG); CLARITY,URINE CLEAR; COLOR,URINE YELLOW; NITRITE,URINE NEGATIVE (NEG); PH,URINE 6.5; PROTEIN,URINE NEGATIVE (NEG-TRACE); UROBILINOGEN,URINE 0.2 mg/dL (0.2 mg/dL)
[2018-12-07 16:22] LABS: BACTERIA,URINE 0 /HPF (0-FEW); RBC,URINE OCC /HPF (0-2); SQUAMOUS EPITHELIAL CELL,UR OCC /LPF; WBC,URINE OCC /HPF (0-4)
--- NOTE | 2018-12-07 16:28 | EKG ---
[facility] [address] [place] [address] Test Date: 2018-12-07 Test Time: 11:43:34 Pat Name: LEXY JON Department: Room: 111 1 Gender: F Starch Mangle Tender: : 1965 Requested By: MARTHA VALENCIA Order Number: [id number] Reading MD: Christiano Snider MD Measurements Intervals [place] Rate: 56 P: UT: QRS: 100 QRSD: 72 T: 130 QT: 464 QTc: 454 Interpretive Statements PROBABLE SR BASELINE ARTIFACT Electronically Signed On 12-14-2018 13:44:37 CDT by Christiano Snider MD
[2018-12-07 16:29] LABS: AMPHETAMINE/METHAMPHETAMINE NEG (NEG); BARBITURATES NEG (NEG); BENZODIAZEPINES NEG (NEG); CANNABINOIDS NEG (NEG); COCAINE NEG (NEG); METHADONE NEG (NEG); OPIATES NEG (NEG); PHENCYCLIDINE NEG (NEG)
[2018-12-07] MEDS ORDERED: PANTOPRAZOLE 40 MG TABLET.DR. PO ONE (17:00)
[2018-12-07] MEDS: amLODIPine BESYLATE 10 MG TABLET PO SCH (17:20)
[2018-12-07] MEDS ORDERED: CYCLOBENZAPRINE 10 MG TABLET. PO SCH (21:00)
[2018-12-07] MEDS ORDERED: ATORVASTATIN CALCIUM 10 MG TABLET. PO SCH (21:00)
[2018-12-07] MEDS ORDERED: FERROUS SULFATE 325 MG TABLET. PO SCH (21:00)
[2018-12-08] VITALS (22 sets, daily range): BP systolic 141–188; BP diastolic 50–88
[2018-12-08] MEDS: niCARdipine 50 MG in IV NORMAL SALINE 250ML 250 ML IV PRN (01:22)
[2018-12-08 04:36] LABS: CALCIUM 8.8 mg/dL (8.5-10.1); CREATININE 1.1 mg/dL (0.6-1.0); GFR 62.6; POTASSIUM 4.4 mmol/L (3.5-5.1)
[2018-12-08] MEDS: amLODIPine BESYLATE 10 MG TABLET PO SCH (09:00)
[2018-12-08] MEDS ORDERED: AZILSARTAN MED PO SCH (09:00)
[2018-12-08] MEDS ORDERED: CHLORTHALIDONE PO SCH (09:00)
[2018-12-08] MEDS ORDERED: NON FORMULARY ITEM (Warfarin Sodium (Coumadin) 1 TAB) PO SCH (09:00)
--- NOTE | 2018-12-08 09:00 | PDOC ---
KARINA FLAHERTY BIOINFORMATICS SCIENTIST 12/08/18 0900: CARDIO Progress Notes Date and Time Date of Service 12/08/2018 Time of Evaluation 0850 Subjective Subjective: No Chest Pain, No shortness of breath, No Palpitations Vitals Vitals Vital Signs Date Time Temp Pulse Resp B/P (MAP) Pulse Ox O2 Delivery O2 Flow Rate FiO2 12/08/18 06:00 54 20 141/59 (86) 99 Nasal Cannula 2.0 12/08/18 04:00 98.3 98.3 Weight Weight [ ] Input and Output Intake and Output Intake and Output 12/08/18 07:00 Intake Total 1740 ml Output Total 3330 ml Balance -1590 ml Intake Oral 1440 ml IV Total 300 ml Output Urine Total 3330 ml Laboratory Labs Laboratory Tests Test 12/07/18 11:50 12/07/18 16:05 12/08/18 03:50 White Blood Count 6.9 x10^3/uL (4.0-11.0) Red Blood Count 4.64 x10^6/uL (3.50-5.40) Hemoglobin 14.3 g/dL (12.0-15.5) Hematocrit 43.3 % (36.0-47.0) Mean Corpuscular Volume 93 fL (79-100) Mean Corpuscular Hemoglobin 31 pg (25-35) Mean Corpuscular Hemoglobin Concent 33 g/dL (31-37) Red Cell Distribution Width 14.7 % (11.5-14.5) Platelet Count 184 x10^3/uL (140-400) Neutrophils (%) (Auto) 66 % (31-73) Lymphocytes (%) (Auto) 18 % (24-48) Monocytes (%) (Auto) 10 % (0-9) Eosinophils (%) (Auto) 5 % (0-3) Basophils (%) (Auto) 1 % (0-3) Neutrophils # (Auto) 4.6 x10^3uL (1.8-7.7) Lymphocytes # (Auto) 1.3 x10^3/uL (1.0-4.8) Monocytes # (Auto) 0.7 x10^3/uL (0.0-1.1) Eosinophils # (Auto) 0.3 x10^3/uL (0.0-0.7) Basophils # (Auto) 0.1 x10^3/uL (0.0-0.2) Prothrombin Time 12.9 SEC (11.7-14.0) Prothromb Time International Ratio 1.0 (0.8-1.1) D-Dimer (Kaley) 0.65 ug/mlFEU (0.00-0.50) Sodium Level 141 mmol/L (136-145) 141 mmol/L (136-145) Potassium Level 4.0 mmol/L (3.5-5.1) 4.4 mmol/L (3.5-5.1) Chloride Level 104 mmol/L (98-107) 105 mmol/L (98-107) Carbon Dioxide Level 28 mmol/L (21-32) 29 mmol/L (21-32) Anion Gap 9 (6-14) 7 (6-14) Blood Urea Nitrogen 17 mg/dL (7-20) 17 mg/dL (7-20) Creatinine 1.1 mg/dL (0.6-1.0) 1.1 mg/dL (0.6-1.0) Estimated GFR (Cockcroft-Gault) 62.6 62.6 BUN/Creatinine Ratio 15 (6-20) Glucose Level 100 mg/dL (70-99) 142 mg/dL (70-99) Lactic Acid Level 0.8 mmol/L (0.4-2.0) Calcium Level 8.8 mg/dL (8.5-10.1) 8.8 mg/dL (8.5-10.1) Total Bilirubin 0.8 mg/dL (0.2-1.0) Aspartate Amino Transf (AST/SGOT) 27 U/L (15-37) Alanine Aminotransferase (ALT/SGPT) 47 U/L (14-59) Alkaline Phosphatase 99 U/L (46-116) Creatine Kinase 214 U/L (26-192) Troponin I Quantitative 0.153 ng/mL (0.000-0.055) 0.212 ng/mL (0.000-0.055) YF-Jfl-O-Type Natriuretic Peptide 2166 pg/mL (0-124) Total Protein 6.9 g/dL (6.4-8.2) Albumin 3.2 g/dL (3.4-5.0) Albumin/Globulin Ratio 0.9 (1.0-1.7) Triglycerides Level 46 mg/dL (0-150) Cholesterol Level 164 mg/dL (0-200) LDL Cholesterol, Calculated 106 mg/dL (0-100) VLDL Cholesterol, Calculated 9 mg/dL (0-40) Non-HDL Cholesterol Calculated 115 mg/dL (0-129) HDL Cholesterol 49 mg/dL (40-60) Cholesterol/HDL Ratio 3.3 Thyroid Stimulating Hormone (TSH) 0.801 uIU/mL (0.358-3.74) Urine Collection Type Unknown Urine Color Yellow Urine Clarity Clear Urine pH 6.5 Urine Specific [place] <=1.005 Urine Protein Negative mg/dL (NEG-TRACE) Urine Glucose (UA) Negative mg/dL (NEG) Urine Ketones (Stick) Negative mg/dL (NEG) Urine Blood Negative (NEG) Urine Nitrite Negative (NEG) Urine Bilirubin Negative (NEG) Urine Urobilinogen Dipstick 0.2 mg/dL (0.2 mg/dL) Urine Leukocyte Esterase Negative (NEG) Urine RBC Occ /HPF (0-2) Urine WBC Occ /HPF (0-4) Urine Squamous Epithelial Cells Occ /LPF Urine Bacteria 0 /HPF (0-FEW) Urine Opiates Screen Neg (NEG) Urine Methadone Screen Neg (NEG) Urine Barbiturates Neg (NEG) Urine Phencyclidine Screen Neg (NEG) Urine Amphetamine/Methamphetamine Neg (NEG) Urine Benzodiazepines Screen Neg (NEG) Urine Cocaine Screen Neg (NEG) Urine Cannabinoids Screen Neg (NEG) Urine Ethyl Alcohol Neg (NEG) Physical Exam HEENT: Neck Supple W Full Motion Chest: Symmetric LUNGS: Other (diminished bases) Heart: S1S2, RRR (SR/SB) Abdomen: Soft N/T Extremities: No Calf Tenderness, Other (2-3+ bilateral LE pitting edema) Neurology: alert, oriented, follow commands Assessment Assessment 1. Malignant HTN: due to Lifestyle issues and inconsistent use of BP meds and NSAID use 2. Acute on chronic diastolic CHF; EF and WM nml with mod pulmonary HTN 3. Elevated troponin: mild peaked at 0.2. Suspect demand mediated, type 2 as above. EKG SB no acute ST-T wave changes, no CP 4. Tobaccoism 5. HLP 6. Obesity 7. Sinus bradycardia: suspect reflexively induced by high BP, no pauses and no syncopal nor presyncopal event at home 8. Chronic high dose NSAID use with chronic low back pain. 6 tabs ibuprofen and 6 tabs of aleve a day avg. Recommendations 1. No AV timothy blocking agents. titrate off cardene. Start on hydralazine PO with PRN IV in addition to norvasc, losartan and chlorthalidone 2. Renal duplex this afternoon as pt had breakfast. Diuresing well with chlorthalidone. Start on statin. ASA. 3. Smoking cessation 4. Discussed lifestyle modification. Wt loss, minimizing processed food, exercise, DASH diet, decreaseing soda. Stop routine NSAID and only do PRN 5. Will need outpt MYCHAL workup. 6. Encourage to see ophthalmology routine appt. 7. Given her risk factors, ischemic workup likely as an outpt in the for m of stress test pending current workup result. 8. May transfer to [facility] ALFREDA RUBIO MD 12/09/18 0812: CARDIO Progress Notes Assessment Assessment Patient seen and examined 12/08/18. Agree with EMPLOYMENT DIRECTOR's assessment and plan. Malignant hypertension better controlled. Patient presently off Cardene drip. Acute on chronic diastolic heart failure better compensated. Slight troponin elevation secondary to demand ischemia. 2-D echo showed normal LV function. Plan ischemic evaluation as an outpatient. KARINA FLAHERTY APRN Dec 08, 2018 09:00 ALFREDA RUBIO MD Dec 09, 2018 08:12
[2018-12-08] MEDS: NICOTINE 21MG PATCH. TD PRN (09:12)
[2018-12-08] MEDS: LOSARTAN POTASSIUM 50 MG TABLET. PO SCH ×2 (09:13→20:34)
[2018-12-08] MEDS: PANTOPRAZOLE 40 MG TABLET.DR. PO SCH (09:14)
[2018-12-08] MEDS: ASPIRIN ENTERIC COATED 325 MG TABLET.DR. PO SCH (09:14)
[2018-12-08] MEDS: CHLORTHALIDONE 25 MG TABLET. PO SCH (09:14)
--- NOTE | 2018-12-08 09:29 | PDOC ---
PROGRESS NOTES Chief Complaint Chief Complaint Hypertensive urgency resolved Obesity, BMI 42 Noncompliance History neck surgery-off gabapentin and flexeril History of orthopedic surgery-off warfarin Plan: titrate off CArdene gtt cards consult appreciated, follow recommendations may be transferred out of ICU once off cardene lipids noted, patient on amlodipine, losartan and chlorthalidone. Full code Further recs pending course Other supportive meds History of Present Illness History of Present Illness Patient eating breakfast currently no acute distress. Headache has improved no chest pressure or discomfort was reported. No acute events reported overnight. Continues to still be on a Cardizem drip which will hopefully be discontinued throughout the day and transferred to a medical floor. No neurological deficits no complaints during my visit Vitals Vitals Vital Signs Date Time Temp Pulse Resp B/P (MAP) Pulse Ox O2 Delivery O2 Flow Rate FiO2 12/08/18 09:23 58 158/59 12/08/18 06:00 20 99 Nasal Cannula 2.0 12/08/18 04:00 98.3 98.3 Physical Exam General: Alert, Oriented X3, Cooperative, No acute distress Heart: Regular rate (SR), Other (3/6 systolic murmur to LLS border; S4) Abdomen: Normal bowel sounds, Soft, No tenderness, No hepatosplenomegaly, No masses Extremities: No cyanosis, Other (3+ bilateral LE pitting edema) Skin: No breakdown, No significant lesion Labs LABS Laboratory Tests Test 12/07/18 11:50 12/07/18 16:05 12/08/18 03:50 White Blood Count 6.9 x10^3/uL (4.0-11.0) Red Blood Count 4.64 x10^6/uL (3.50-5.40) Hemoglobin 14.3 g/dL (12.0-15.5) Hematocrit 43.3 % (36.0-47.0) Mean Corpuscular Volume 93 fL (79-100) Mean Corpuscular Hemoglobin 31 pg (25-35) Mean Corpuscular Hemoglobin Concent 33 g/dL (31-37) Red Cell Distribution Width 14.7 % (11.5-14.5) Platelet Count 184 x10^3/uL (140-400) Neutrophils (%) (Auto) 66 % (31-73) Lymphocytes (%) (Auto) 18 % (24-48) Monocytes (%) (Auto) 10 % (0-9) Eosinophils (%) (Auto) 5 % (0-3) Basophils (%) (Auto) 1 % (0-3) Neutrophils # (Auto) 4.6 x10^3uL (1.8-7.7) Lymphocytes # (Auto) 1.3 x10^3/uL (1.0-4.8) Monocytes # (Auto) 0.7 x10^3/uL (0.0-1.1) Eosinophils # (Auto) 0.3 x10^3/uL (0.0-0.7) Basophils # (Auto) 0.1 x10^3/uL (0.0-0.2) Prothrombin Time 12.9 SEC (11.7-14.0) Prothromb Time International Ratio 1.0 (0.8-1.1) D-Dimer (Kaley) 0.65 ug/mlFEU (0.00-0.50) Sodium Level 141 mmol/L (136-145) 141 mmol/L (136-145) Potassium Level 4.0 mmol/L (3.5-5.1) 4.4 mmol/L (3.5-5.1) Chloride Level 104 mmol/L (98-107) 105 mmol/L (98-107) Carbon Dioxide Level 28 mmol/L (21-32) 29 mmol/L (21-32) Anion Gap 9 (6-14) 7 (6-14) Blood Urea Nitrogen 17 mg/dL (7-20) 17 mg/dL (7-20) Creatinine 1.1 mg/dL (0.6-1.0) 1.1 mg/dL (0.6-1.0) Estimated GFR (Cockcroft-Gault) 62.6 62.6 BUN/Creatinine Ratio 15 (6-20) Glucose Level 100 mg/dL (70-99) 142 mg/dL (70-99) Lactic Acid Level 0.8 mmol/L (0.4-2.0) Calcium Level 8.8 mg/dL (8.5-10.1) 8.8 mg/dL (8.5-10.1) Total Bilirubin 0.8 mg/dL (0.2-1.0) Aspartate Amino Transf (AST/SGOT) 27 U/L (15-37) Alanine Aminotransferase (ALT/SGPT) 47 U/L (14-59) Alkaline Phosphatase 99 U/L (46-116) Creatine Kinase 214 U/L (26-192) Troponin I Quantitative 0.153 ng/mL (0.000-0.055) 0.212 ng/mL (0.000-0.055) ZD-Mhy-A-Type Natriuretic Peptide 2166 pg/mL (0-124) Total Protein 6.9 g/dL (6.4-8.2) Albumin 3.2 g/dL (3.4-5.0) Albumin/Globulin Ratio 0.9 (1.0-1.7) Triglycerides Level 46 mg/dL (0-150) Cholesterol Level 164 mg/dL (0-200) LDL Cholesterol, Calculated 106 mg/dL (0-100) VLDL Cholesterol, Calculated 9 mg/dL (0-40) Non-HDL Cholesterol Calculated 115 mg/dL (0-129) HDL Cholesterol 49 mg/dL (40-60) Cholesterol/HDL Ratio 3.3 Thyroid Stimulating Hormone (TSH) 0.801 uIU/mL (0.358-3.74) Urine Collection Type Unknown Urine Color Yellow Urine Clarity Clear Urine pH 6.5 Urine Specific [place] <=1.005 Urine Protein Negative mg/dL (NEG-TRACE) Urine Glucose (UA) Negative mg/dL (NEG) Urine Ketones (Stick) Negative mg/dL (NEG) Urine Blood Negative (NEG) Urine Nitrite Negative (NEG) Urine Bilirubin Negative (NEG) Urine Urobilinogen Dipstick 0.2 mg/dL (0.2 mg/dL) Urine Leukocyte Esterase Negative (NEG) Urine RBC Occ /HPF (0-2) Urine WBC Occ /HPF (0-4) Urine Squamous Epithelial Cells Occ /LPF Urine Bacteria 0 /HPF (0-FEW) Urine Opiates Screen Neg (NEG) Urine Methadone Screen Neg (NEG) Urine Barbiturates Neg (NEG) Urine Phencyclidine Screen Neg (NEG) Urine Amphetamine/Methamphetamine Neg (NEG) Urine Benzodiazepines Screen Neg (NEG) Urine Cocaine Screen Neg (NEG) Urine Cannabinoids Screen Neg (NEG) Urine Ethyl Alcohol Neg (NEG) Review of Systems Review of Systems Pertinent as per history of present illness otherwise 14 point review of system is negative Assessment and Plan Assessmemt and Plan Problems Medical Problems: (1) CHF (congestive heart failure) Status: Acute (2) Elevated troponin I level Status: Acute (3) Malignant hypertension Status: Acute (4) Shortness of breath Status: Acute Comment Review of Relevant I have reviewed the following items meg (where applicable) has been applied. Labs Laboratory Tests Test 12/07/18 11:50 12/07/18 16:05 12/08/18 03:50 White Blood Count 6.9 x10^3/uL (4.0-11.0) Red Blood Count 4.64 x10^6/uL (3.50-5.40) Hemoglobin 14.3 g/dL (12.0-15.5) Hematocrit 43.3 % (36.0-47.0) Mean Corpuscular Volume 93 fL (79-100) Mean Corpuscular Hemoglobin 31 pg (25-35) Mean Corpuscular Hemoglobin Concent 33 g/dL (31-37) Red Cell Distribution Width 14.7 % (11.5-14.5) Platelet Count 184 x10^3/uL (140-400) Neutrophils (%) (Auto) 66 % (31-73) Lymphocytes (%) (Auto) 18 % (24-48) Monocytes (%) (Auto) 10 % (0-9) Eosinophils (%) (Auto) 5 % (0-3) Basophils (%) (Auto) 1 % (0-3) Neutrophils # (Auto) 4.6 x10^3uL (1.8-7.7) Lymphocytes # (Auto) 1.3 x10^3/uL (1.0-4.8) Monocytes # (Auto) 0.7 x10^3/uL (0.0-1.1) Eosinophils # (Auto) 0.3 x10^3/uL (0.0-0.7) Basophils # (Auto) 0.1 x10^3/uL (0.0-0.2) Prothrombin Time 12.9 SEC (11.7-14.0) Prothromb Time International Ratio 1.0 (0.8-1.1) D-Dimer (Kaley) 0.65 ug/mlFEU (0.00-0.50) Sodium Level 141 mmol/L (136-145) 141 mmol/L (136-145) Potassium Level 4.0 mmol/L (3.5-5.1) 4.4 mmol/L (3.5-5.1) Chloride Level 104 mmol/L (98-107) 105 mmol/L (98-107) Carbon Dioxide Level 28 mmol/L (21-32) 29 mmol/L (21-32) Anion Gap 9 (6-14) 7 (6-14) Blood Urea Nitrogen 17 mg/dL (7-20) 17 mg/dL (7-20) Creatinine 1.1 mg/dL (0.6-1.0) 1.1 mg/dL (0.6-1.0) Estimated GFR (Cockcroft-Gault) 62.6 62.6 BUN/Creatinine Ratio 15 (6-20) Glucose Level 100 mg/dL (70-99) 142 mg/dL (70-99) Lactic Acid Level 0.8 mmol/L (0.4-2.0) Calcium Level 8.8 mg/dL (8.5-10.1) 8.8 mg/dL (8.5-10.1) Total Bilirubin 0.8 mg/dL (0.2-1.0) Aspartate Amino Transf (AST/SGOT) 27 U/L (15-37) Alanine Aminotransferase (ALT/SGPT) 47 U/L (14-59) Alkaline Phosphatase 99 U/L (46-116) Creatine Kinase 214 U/L (26-192) Troponin I Quantitative 0.153 ng/mL (0.000-0.055) 0.212 ng/mL (0.000-0.055) UU-Wub-V-Type Natriuretic Peptide 2166 pg/mL (0-124) Total Protein 6.9 g/dL (6.4-8.2) Albumin 3.2 g/dL (3.4-5.0) Albumin/Globulin Ratio 0.9 (1.0-1.7) Triglycerides Level 46 mg/dL (0-150) Cholesterol Level 164 mg/dL (0-200) LDL Cholesterol, Calculated 106 mg/dL (0-100) VLDL Cholesterol, Calculated 9 mg/dL (0-40) Non-HDL Cholesterol Calculated 115 mg/dL (0-129) HDL Cholesterol 49 mg/dL (40-60) Cholesterol/HDL Ratio 3.3 Thyroid Stimulating Hormone (TSH) 0.801 uIU/mL (0.358-3.74) Urine Collection Type Unknown Urine Color Yellow Urine Clarity Clear Urine pH 6.5 Urine Specific [place] <=1.005 Urine Protein Negative mg/dL (NEG-TRACE) Urine Glucose (UA) Negative mg/dL (NEG) Urine Ketones (Stick) Negative mg/dL (NEG) Urine Blood Negative (NEG) Urine Nitrite Negative (NEG) Urine Bilirubin Negative (NEG) Urine Urobilinogen Dipstick 0.2 mg/dL (0.2 mg/dL) Urine Leukocyte Esterase Negative (NEG) Urine RBC Occ /HPF (0-2) Urine WBC Occ /HPF (0-4) Urine Squamous Epithelial Cells Occ /LPF Urine Bacteria 0 /HPF (0-FEW) Urine Opiates Screen Neg (NEG) Urine Methadone Screen Neg (NEG) Urine Barbiturates Neg (NEG) Urine Phencyclidine Screen Neg (NEG) Urine Amphetamine/Methamphetamine Neg (NEG) Urine Benzodiazepines Screen Neg (NEG) Urine Cocaine Screen Neg (NEG) Urine Cannabinoids Screen Neg (NEG) Urine Ethyl Alcohol Neg (NEG) Laboratory Tests Test 12/07/18 11:50 12/07/18 16:05 12/08/18 03:50 White Blood Count 6.9 x10^3/uL (4.0-11.0) Red Blood Count 4.64 x10^6/uL (3.50-5.40) Hemoglobin 14.3 g/dL (12.0-15.5) Hematocrit 43.3 % (36.0-47.0) Mean Corpuscular Volume 93 fL (79-100) Mean Corpuscular Hemoglobin 31 pg (25-35) Mean Corpuscular Hemoglobin Concent 33 g/dL (31-37) Red Cell Distribution Width 14.7 % (11.5-14.5) Platelet Count 184 x10^3/uL (140-400) Neutrophils (%) (Auto) 66 % (31-73) Lymphocytes (%) (Auto) 18 % (24-48) Monocytes (%) (Auto) 10 % (0-9) Eosinophils (%) (Auto) 5 % (0-3) Basophils (%) (Auto) 1 % (0-3) Neutrophils # (Auto) 4.6 x10^3uL (1.8-7.7) Lymphocytes # (Auto) 1.3 x10^3/uL (1.0-4.8) Monocytes # (Auto) 0.7 x10^3/uL (0.0-1.1) Eosinophils # (Auto) 0.3 x10^3/uL (0.0-0.7) Basophils # (Auto) 0.1 x10^3/uL (0.0-0.2) Prothrombin Time 12.9 SEC (11.7-14.0) Prothromb Time International Ratio 1.0 (0.8-1.1) D-Dimer (Kaley) 0.65 ug/mlFEU (0.00-0.50) Sodium Level 141 mmol/L (136-145) 141 mmol/L (136-145) Potassium Level 4.0 mmol/L (3.5-5.1) 4.4 mmol/L (3.5-5.1) Chloride Level 104 mmol/L (98-107) 105 mmol/L (98-107) Carbon Dioxide Level 28 mmol/L (21-32) 29 mmol/L (21-32) Anion Gap 9 (6-14) 7 (6-14) Blood Urea Nitrogen 17 mg/dL (7-20) 17 mg/dL (7-20) Creatinine 1.1 mg/dL (0.6-1.0) 1.1 mg/dL (0.6-1.0) Estimated GFR (Cockcroft-Gault) 62.6 62.6 BUN/Creatinine Ratio 15 (6-20) Glucose Level 100 mg/dL (70-99) 142 mg/dL (70-99) Lactic Acid Level 0.8 mmol/L (0.4-2.0) Calcium Level 8.8 mg/dL (8.5-10.1) 8.8 mg/dL (8.5-10.1) Total Bilirubin 0.8 mg/dL (0.2-1.0) Aspartate Amino Transf (AST/SGOT) 27 U/L (15-37) Alanine Aminotransferase (ALT/SGPT) 47 U/L (14-59) Alkaline Phosphatase 99 U/L (46-116) Creatine Kinase 214 U/L (26-192) Troponin I Quantitative 0.153 ng/mL (0.000-0.055) 0.212 ng/mL (0.000-0.055) OJ-Smy-Z-Type Natriuretic Peptide 2166 pg/mL (0-124) Total Protein 6.9 g/dL (6.4-8.2) Albumin 3.2 g/dL (3.4-5.0) Albumin/Globulin Ratio 0.9 (1.0-1.7) Triglycerides Level 46 mg/dL (0-150) Cholesterol Level 164 mg/dL (0-200) LDL Cholesterol, Calculated 106 mg/dL (0-100) VLDL Cholesterol, Calculated 9 mg/dL (0-40) Non-HDL Cholesterol Calculated 115 mg/dL (0-129) HDL Cholesterol 49 mg/dL (40-60) Cholesterol/HDL Ratio 3.3 Thyroid Stimulating Hormone (TSH) 0.801 uIU/mL (0.358-3.74) Urine Collection Type Unknown Urine Color Yellow Urine Clarity Clear Urine pH 6.5 Urine Specific [place] <=1.005 Urine Protein Negative mg/dL (NEG-TRACE) Urine Glucose (UA) Negative mg/dL (NEG) Urine Ketones (Stick) Negative mg/dL (NEG) Urine Blood Negative (NEG) Urine Nitrite Negative (NEG) Urine Bilirubin Negative (NEG) Urine Urobilinogen Dipstick 0.2 mg/dL (0.2 mg/dL) Urine Leukocyte Esterase Negative (NEG) Urine RBC Occ /HPF (0-2) Urine WBC Occ /HPF (0-4) Urine Squamous Epithelial Cells Occ /LPF Urine Bacteria 0 /HPF (0-FEW) Urine Opiates Screen Neg (NEG) Urine Methadone Screen Neg (NEG) Urine Barbiturates Neg (NEG) Urine Phencyclidine Screen Neg (NEG) Urine Amphetamine/Methamphetamine Neg (NEG) Urine Benzodiazepines Screen Neg (NEG) Urine Cocaine Screen Neg (NEG) Urine Cannabinoids Screen Neg (NEG) Urine Ethyl Alcohol Neg (NEG) Medications Current Medications Sodium Chloride 1,000 ml @ 1,000 mls/hr Q1H IV Last administered on 12/07/18at 12:25; Start 12/07/18 at 11:45; Stop 12/07/18 at 12:44; Status DC Albuterol/ Ipratropium (Duoneb) 3 ml 1X ONCE NEB Last administered on at 12:37; Start 12/07/18 at 12:15; Stop 12/07/18 at 12:16; Status DC Methylprednisolone Sodium Succinate (SOLU-Medrol 125MG VIAL) 150 mg 1X ONCE IV Last administered on 12/07/18at 12:23; Start 12/07/18 at 12:15; Stop 12/07/18 at 12:24; Status DC Hydralazine HCl (Apresoline Inj) 10 mg 1X ONCE IVP Last administered on at 12:24; Start 12/07/18 at 12:15; Stop 12/07/18 at 12:16; Status DC Methylprednisolone Sodium Succinate (SOLU-Medrol 125MG VIAL) 125 mg 1X ONCE IV ; Start 12/07/18 at 12:30; Stop 12/07/18 at 12:31; Status DC Hydralazine HCl (Apresoline Inj) 10 mg 1X ONCE IVP Last administered on at 13:36; Start 12/07/18 at 13:30; Stop 12/07/18 at 13:31; Status DC Nicardipine HCl 50 mg/Sodium Chloride 250 ml @ 25 mls/hr CONT PRN IV SEE I/O RECORD Last administered on 12/08/18at 01:22; Start 12/07/18 at 13:30 Ferrous Sulfate (Feosol) 325 mg BID PO ; Start 12/07/18 at 21:00; Stop 12/07/18 at 21:00; Status DC Gabapentin (Neurontin) 300 mg TID PO ; Start 12/07/18 at 15:00; Stop 12/07/18 at 15:00; Status DC Oxycodone/ Acetaminophen (Percocet 7.5/ 325) 1 tab PRN Q4HRS PRN PO pain relief ; Start 12/07/18 at 14:00; Status Cancel Non-Formulary Medication (Azilsartan Med/ Chlorthalidone (Edarbyclor 40-25 Mg Tablet)) 1 each DAILY PO ; Start 12/08/18 at 09:00; Status UNV Cyclobenzaprine HCl (Flexeril) 5 mg QHS PO ; Start 12/07/18 at 21:00; Stop at 21:00; Status DC Multivitamins (Thera M Plus) 1 tab DAILY PO Last administered on 12/07/18at 14:58 ; Start 12/07/18 at 15:00; Stop 12/07/18 at 15:57; Status DC Non-Formulary Medication (Warfarin Sodium (Coumadin)) 1 tab DAILY PO ; Start 06/18 at 09:00; Stop 12/08/18 at 09:00; Status DC Lisinopril (Prinivil) 10 mg DAILY PO ; Start 12/07/18 at 15:00; Stop 12/07/18 at 15:00; Status DC Hydrochlorothiazide (Hydrodiuril) 25 mg DAILY PO Last administered on 12/07/18at 14:59; Start 12/07/18 at 15:00; Stop 12/07/18 at 15:34; Status DC Aspirin (Ecotrin) 325 mg DAILYWBKFT PO Last administered on 12/08/18at 09:14; Start 12/07/18 at 15:00 Losartan Potassium (Cozaar) 50 mg DAILY PO ; Start 12/07/18 at 15:00; Stop at 15:00; Status DC Chlorthalidone (Thalitone) 25 mg DAILY PO Last administered on 12/08/18at 09:14 ; Start 12/07/18 at 15:00 Temazepam (Restoril) 7.5 mg PRN QHS PRN PO INSOMNIA; Start 12/07/18 at 14:15 Nicotine (Nicoderm Cq 21mg) 1 patch PRN DAILY PRN TD SMOKING CESSATION Last administered on 12/08/18at 09:12; Start 12/07/18 at 14:15 Hydralazine HCl (Apresoline Inj) 10 mg PRN Q4HRS PRN IVP ELEVATED BP, SEE COMMENTS; Start 12/07/18 at 14:30 Ondansetron HCl (Zofran) 4 mg STK-MED ONCE .ROUTE ; Start 12/07/18 at 14:32; Stop 12/07/18 at 14:33; Status DC Ondansetron HCl (Zofran) 4 mg PRN Q6HRS PRN IV NAUSEA/VOMITING Last administered on 12/07/18at 14:59; Start 12/07/18 at 14:45 Acetaminophen/ Hydrocodone Bitart (Lortab 7.5/325) 1 tab PRN Q6HRS PRN PO PAIN ; Start 12/07/18 at 16:00 Amlodipine Besylate (Norvasc) 10 mg DAILY PO Last administered on 12/07/18at 17: 20; Start 12/07/18 at 17:00 Losartan Potassium (Cozaar) 100 mg DAILY PO Last administered on 12/08/18at 09: 13; Start 12/08/18 at 09:00 Pantoprazole Sodium (Protonix) 40 mg 1X ONCE PO Last administered on 12/07/18at 17:20; Start 12/07/18 at 17:00; Stop 12/07/18 at 17:01; Status DC Pantoprazole Sodium (Protonix) 40 mg DAILYAC PO Last administered on 12/08/18at 09:14; Start 12/08/18 at 07:30 Atorvastatin Calcium (Lipitor) 10 mg QHS PO Last administered on 12/07/18at 20:50 ; Start 12/07/18 at 21:00 Hydralazine HCl (Apresoline) 50 mg TID PO Last administered on 12/08/18at 09:23 ; Start 12/08/18 at 09:30 Active Scripts Active Reported Hydrocodone-Apap 7.5-325 (Hydrocodone Bit/Acetaminophen) 1 Tab Tablet 1 Tab PO PRN Q6HRS PRN Edarbyclor 40-25 Mg Tablet (Azilsartan/Chlorthalidone) 1 Each Tablet 1 Each PO DAILY Vitals/I & O Vital Sign - Last 24 Hours 12/07/18 12/07/18 12/07/18 12/07/18 11:26 11:40 12:08 12:24 Temp 98.8 98.8 Pulse 72 64 50 47 Resp 26 28 B/P (MAP) 226/94 (138) 255/180 (205) 238/102 (147) 238/102 Pulse Ox 95 91 100 O2 Delivery Room Air Room Air Room Air 12/07/18 12/07/18 12/07/18 12/07/18 12:38 12:40 13:08 13:15 Pulse 46 50 Resp 23 32 B/P (MAP) 227/109 (148) 246/116 (159) 228/105 (146) Pulse Ox 94 O2 Delivery Room Air 12/07/18 12/07/18 12/07/18 12/07/18 13:36 13:38 13:51 14:45 Temp 98.1 98.1 Pulse 50 50 48 58 Resp 35 27 20 B/P (MAP) 233/93 217/86 (129) 199/82 (121) 187/81 (116) Pulse Ox 99 98 O2 Delivery Nasal Cannula Nasal Cannula O2 Flow Rate 3.0 2.0 12/07/18 12/07/18 12/07/18 12/07/18 15:00 15:00 15:30 16:00 Pulse 54 58 56 Resp 22 23 B/P (MAP) 173/72 (105) 152/52 (85) 158/60 (92) Pulse Ox 94 94 O2 Delivery Nasal Cannula Nasal Cannula Nasal Cannula O2 Flow Rate 2.0 2.0 2.0 12/07/18 12/07/18 12/07/18 12/07/18 17:00 17:20 18:00 20:19 Pulse 61 61 70 63 Resp 22 24 21 B/P (MAP) 164/76 (105) 164/76 174/73 (106) 159/60 (93) Pulse Ox 95 93 97 O2 Delivery Nasal Cannula Nasal Cannula Nasal Cannula O2 Flow Rate 2.0 2.0 2.0 12/07/18 12/07/18 12/07/18 12/07/18 21:00 23:00 23:59 23:59 Pulse 59 56 59 Resp 18 19 18 B/P (MAP) 150/66 (94) 149/58 (88) 150/66 (94) Pulse Ox 97 97 97 O2 Delivery Nasal Cannula Nasal Cannula Nasal Cannula Nasal Cannula O2 Flow Rate 2.0 2.0 2.0 2.0 12/08/18 12/08/18 12/08/18 12/08/18 01:00 02:00 03:00 03:45 Temp 98.1 98.1 Pulse 56 56 56 60 Resp 19 20 20 18 B/P (MAP) 146/60 (88) 145/60 (88) 142/60 (87) 143/61 (88) Pulse Ox 97 97 97 97 O2 Delivery Nasal Cannula Nasal Cannula Nasal Cannula Nasal Cannula O2 Flow Rate 2.0 2.0 2.0 2.0 12/08/18 12/08/18 12/08/18 12/08/18 04:00 04:00 04:15 05:00 Temp 98.3 98.3 Pulse 56 52 59 Resp 20 20 18 B/P (MAP) 153/60 (91) 158/62 (94) 150/67 (94) Pulse Ox 97 98 99 O2 Delivery Nasal Cannula Nasal Cannula Nasal Cannula Nasal Cannula O2 Flow Rate 2.0 2.0 2.0 2.0 12/08/18 12/08/18 12/08/18 06:00 09:13 09:23 Pulse 54 58 58 Resp 20 B/P (MAP) 141/59 (86) 158/67 158/59 Pulse Ox 99 O2 Delivery Nasal Cannula O2 Flow Rate 2.0 Intake and Output 12/07/18 12/07/18 12/08/18 15:00 23:00 07:00 Intake Total 1440 ml 300 ml Output Total 255 ml 1850 ml 1225 ml Balance -255 ml -410 ml -925 ml SOLOMON JANG MD Dec 08, 2018 09:29
--- NOTE | 2018-12-08 12:29 | NUR ---
NPO till after scheduled renal ultrasound. Patient informed of test . Quynh stopped 0800. Po meds effective at this point. Addendum: 12/08/18 at 1232 by Zoë Kraus RN Amended: Links added.
--- NOTE | 2018-12-08 12:29 | NUR ---
SS following for discharge planning. SS reviewed pt chart. Pt is from home. No discharge needs noted at this time. SS will continue to follow for pending discharge needs.
[2018-12-08] MEDS: hydrALAZINE 20 MG/ML VIAL. IVP PRN (16:10)
[2018-12-08] MEDS: HYDROcodone/APAP 7.5/325MG 1 TAB TABLET PO PRN (16:12)
--- NOTE | 2018-12-08 17:56 | NUR ---
Hypertensive episode controlled w prn IV medication. Talking on phone when rosalie in to do [employer]. 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 Admits to not taking "when she feels OK". Refused printed information on meds. Strongly suggested she not stop or not take meds. Informed in detailed of. adverse effects of not taking meds . [facility] downgrade w/o bed available for transfer. Cont POC
[2018-12-09] VITALS (8 sets, daily range): BP systolic 163–188; BP diastolic 65–83
[2018-12-09] MEDS: hydrALAZINE 20 MG/ML VIAL. IVP PRN ×2 (00:27→04:27)
[2018-12-09] MEDS: ONDANSETRON PF 4 MG/2 ML VIAL. IV PRN (06:01)
[2018-12-09] MEDS: HYDROcodone/APAP 7.5/325MG 1 TAB TABLET PO PRN (06:03)
[2018-12-09] MEDS: ASPIRIN ENTERIC COATED 325 MG TABLET.DR. PO SCH (08:32)
[2018-12-09] MEDS: PANTOPRAZOLE 40 MG TABLET.DR. PO SCH (08:33)
[2018-12-09] MEDS: CHLORTHALIDONE 25 MG TABLET. PO SCH (08:33)
[2018-12-09] MEDS: NICOTINE 21MG PATCH. TD PRN (08:34)
--- NOTE | 2018-12-09 08:48 | PDOC ---
PROGRESS NOTES Chief Complaint Chief Complaint Hypertensive urgency resolved Obesity, BMI 42 Noncompliance History neck surgery-off gabapentin and flexeril History of orthopedic surgery-off warfarin Plan: may transfer to step down when bed available cards consult appreciated, follow recommendations lipids noted, patient on amlodipine, losartan and chlorthalidone. Full code Further recs pending course Other supportive meds History of Present Illness History of Present Illness Patient eating breakfast currently no acute distress. Headache has improved no chest pressure or discomfort was reported. No acute events reported overnight. Continues to still be on a Cardizem drip which will hopefully be discontinued throughout the day and transferred to a medical floor. No neurological deficits no complaints during my visit Vitals Vitals Vital Signs Date Time Temp Pulse Resp B/P (MAP) Pulse Ox O2 Delivery O2 Flow Rate FiO2 12/09/18 08:32 51 163/72 12/09/18 07:05 94 Room Air 96.0 12/09/18 06:03 20 12/09/18 04:20 98.2 98.2 Physical Exam General: Alert, Oriented X3, Cooperative, No acute distress Heart: Regular rate (SR), Other (3/6 systolic murmur to LLS border; S4) Abdomen: Normal bowel sounds, Soft, No tenderness, No hepatosplenomegaly, No masses Extremities: No cyanosis, Other (3+ bilateral LE pitting edema) Skin: No breakdown, No significant lesion Review of Systems Review of Systems Pertinent as per history of present illness otherwise 14 point review of system is negative Assessment and Plan Assessmemt and Plan Problems Medical Problems: (1) CHF (congestive heart failure) Status: Acute (2) Elevated troponin I level Status: Acute (3) Malignant hypertension Status: Acute (4) Shortness of breath Status: Acute Comment Review of Relevant I have reviewed the following items meg (where applicable) has been applied. Labs Laboratory Tests Test 12/07/18 11:50 12/07/18 14:50 12/07/18 16:05 12/08/18 03:50 White Blood Count 6.9 x10^3/uL (4.0-11.0) Red Blood Count 4.64 x10^6/uL (3.50-5.40) Hemoglobin 14.3 g/dL (12.0-15.5) Hematocrit 43.3 % (36.0-47.0) Mean Corpuscular Volume 93 fL (79-100) Mean Corpuscular Hemoglobin 31 pg (25-35) Mean Corpuscular Hemoglobin Concent 33 g/dL (31-37) Red Cell Distribution Width 14.7 % (11.5-14.5) Platelet Count 184 x10^3/uL (140-400) Neutrophils (%) (Auto) 66 % (31-73) Lymphocytes (%) (Auto) 18 % (24-48) Monocytes (%) (Auto) 10 % (0-9) Eosinophils (%) (Auto) 5 % (0-3) Basophils (%) (Auto) 1 % (0-3) Neutrophils # (Auto) 4.6 x10^3uL (1.8-7.7) Lymphocytes # (Auto) 1.3 x10^3/uL (1.0-4.8) Monocytes # (Auto) 0.7 x10^3/uL (0.0-1.1) Eosinophils # (Auto) 0.3 x10^3/uL (0.0-0.7) Basophils # (Auto) 0.1 x10^3/uL (0.0-0.2) Prothrombin Time 12.9 SEC (11.7-14.0) Prothromb Time International Ratio 1.0 (0.8-1.1) D-Dimer (Kaley) 0.65 ug/mlFEU (0.00-0.50) Sodium Level 141 mmol/L (136-145) 141 mmol/L (136-145) Potassium Level 4.0 mmol/L (3.5-5.1) 4.4 mmol/L (3.5-5.1) Chloride Level 104 mmol/L (98-107) 105 mmol/L (98-107) Carbon Dioxide Level 28 mmol/L (21-32) 29 mmol/L (21-32) Anion Gap 9 (6-14) 7 (6-14) Blood Urea Nitrogen 17 mg/dL (7-20) 17 mg/dL (7-20) Creatinine 1.1 mg/dL (0.6-1.0) 1.1 mg/dL (0.6-1.0) Estimated GFR (Cockcroft-Gault) 62.6 62.6 BUN/Creatinine Ratio 15 (6-20) Glucose Level 100 mg/dL (70-99) 142 mg/dL (70-99) Lactic Acid Level 0.8 mmol/L (0.4-2.0) Calcium Level 8.8 mg/dL (8.5-10.1) 8.8 mg/dL (8.5-10.1) Total Bilirubin 0.8 mg/dL (0.2-1.0) Aspartate Amino Transf (AST/SGOT) 27 U/L (15-37) Alanine Aminotransferase (ALT/SGPT) 47 U/L (14-59) Alkaline Phosphatase 99 U/L (46-116) Creatine Kinase 214 U/L (26-192) Troponin I Quantitative 0.153 ng/mL (0.000-0.055) 0.212 ng/mL (0.000-0.055) RX-Jii-Z-Type Natriuretic Peptide 2166 pg/mL (0-124) Total Protein 6.9 g/dL (6.4-8.2) Albumin 3.2 g/dL (3.4-5.0) Albumin/Globulin Ratio 0.9 (1.0-1.7) Triglycerides Level 46 mg/dL (0-150) Cholesterol Level 164 mg/dL (0-200) LDL Cholesterol, Calculated 106 mg/dL (0-100) VLDL Cholesterol, Calculated 9 mg/dL (0-40) Non-HDL Cholesterol Calculated 115 mg/dL (0-129) HDL Cholesterol 49 mg/dL (40-60) Cholesterol/HDL Ratio 3.3 Thyroid Stimulating Hormone (TSH) 0.801 uIU/mL (0.358-3.74) Nasal Screen MRSA (PCR) Negative (Negative) Urine Collection Type Unknown Urine Color Yellow Urine Clarity Clear Urine pH 6.5 Urine Specific [place] <=1.005 Urine Protein Negative mg/dL (NEG-TRACE) Urine Glucose (UA) Negative mg/dL (NEG) Urine Ketones (Stick) Negative mg/dL (NEG) Urine Blood Negative (NEG) Urine Nitrite Negative (NEG) Urine Bilirubin Negative (NEG) Urine Urobilinogen Dipstick 0.2 mg/dL (0.2 mg/dL) Urine Leukocyte Esterase Negative (NEG) Urine RBC Occ /HPF (0-2) Urine WBC Occ /HPF (0-4) Urine Squamous Epithelial Cells Occ /LPF Urine Bacteria 0 /HPF (0-FEW) Urine Opiates Screen Neg (NEG) Urine Methadone Screen Neg (NEG) Urine Barbiturates Neg (NEG) Urine Phencyclidine Screen Neg (NEG) Urine Amphetamine/Methamphetamine Neg (NEG) Urine Benzodiazepines Screen Neg (NEG) Urine Cocaine Screen Neg (NEG) Urine Cannabinoids Screen Neg (NEG) Urine Ethyl Alcohol Neg (NEG) Microbiology 12/07/18 Blood Culture - Preliminary, Resulted NO GROWTH AFTER 1 DAY Medications Current Medications Sodium Chloride 1,000 ml @ 1,000 mls/hr Q1H IV Last administered on 12/07/18at 12:25; Start 12/07/18 at 11:45; Stop 12/07/18 at 12:44; Status DC Albuterol/ Ipratropium (Duoneb) 3 ml 1X ONCE NEB Last administered on at 12:37; Start 12/07/18 at 12:15; Stop 12/07/18 at 12:16; Status DC Methylprednisolone Sodium Succinate (SOLU-Medrol 125MG VIAL) 150 mg 1X ONCE IV Last administered on 12/07/18at 12:23; Start 12/07/18 at 12:15; Stop 12/07/18 at 12:24; Status DC Hydralazine HCl (Apresoline Inj) 10 mg 1X ONCE IVP Last administered on at 12:24; Start 12/07/18 at 12:15; Stop 12/07/18 at 12:16; Status DC Methylprednisolone Sodium Succinate (SOLU-Medrol 125MG VIAL) 125 mg 1X ONCE IV ; Start 12/07/18 at 12:30; Stop 12/07/18 at 12:31; Status DC Hydralazine HCl (Apresoline Inj) 10 mg 1X ONCE IVP Last administered on at 13:36; Start 12/07/18 at 13:30; Stop 12/07/18 at 13:31; Status DC Nicardipine HCl 50 mg/Sodium Chloride 250 ml @ 25 mls/hr CONT PRN IV SEE I/O RECORD Last administered on 12/08/18at 01:22; Start 12/07/18 at 13:30 Ferrous Sulfate (Feosol) 325 mg BID PO ; Start 12/07/18 at 21:00; Stop 12/07/18 at 21:00; Status DC Gabapentin (Neurontin) 300 mg TID PO ; Start 12/07/18 at 15:00; Stop 12/07/18 at 15:00; Status DC Oxycodone/ Acetaminophen (Percocet 7.5/ 325) 1 tab PRN Q4HRS PRN PO pain relief ; Start 12/07/18 at 14:00; Status Cancel Non-Formulary Medication (Azilsartan Med/ Chlorthalidone (Edarbyclor 40-25 Mg Tablet)) 1 each DAILY PO ; Start 12/08/18 at 09:00; Status UNV Cyclobenzaprine HCl (Flexeril) 5 mg QHS PO ; Start 12/07/18 at 21:00; Stop at 21:00; Status DC Multivitamins (Thera M Plus) 1 tab DAILY PO Last administered on 12/07/18at 14:58 ; Start 12/07/18 at 15:00; Stop 12/07/18 at 15:57; Status DC Non-Formulary Medication (Warfarin Sodium (Coumadin)) 1 tab DAILY PO ; Start 06/18 at 09:00; Stop 12/08/18 at 09:00; Status DC Lisinopril (Prinivil) 10 mg DAILY PO ; Start 12/07/18 at 15:00; Stop 12/07/18 at 15:00; Status DC Hydrochlorothiazide (Hydrodiuril) 25 mg DAILY PO Last administered on 12/07/18at 14:59; Start 12/07/18 at 15:00; Stop 12/07/18 at 15:34; Status DC Aspirin (Ecotrin) 325 mg DAILYWBKFT PO Last administered on 12/09/18at 08:32; Start 12/07/18 at 15:00 Losartan Potassium (Cozaar) 50 mg DAILY PO ; Start 12/07/18 at 15:00; Stop at 15:00; Status DC Chlorthalidone (Thalitone) 25 mg DAILY PO Last administered on 12/09/18at 08:33 ; Start 12/07/18 at 15:00 Temazepam (Restoril) 7.5 mg PRN QHS PRN PO INSOMNIA Last administered on at 20:35; Start 12/07/18 at 14:15 Nicotine (Nicoderm Cq 21mg) 1 patch PRN DAILY PRN TD SMOKING CESSATION Last administered on 12/09/18 08:34; Start 12/07/18 at 14:15 Hydralazine HCl (Apresoline Inj) 10 mg PRN Q4HRS PRN IVP ELEVATED BP, SEE COMMENTS Last administered on 12/09/18 04:27; Start 12/07/18 at 14:30 Ondansetron HCl (Zofran) 4 mg STK-MED ONCE .ROUTE ; Start 12/07/18 at 14:32; Stop 12/07/18 at 14:33; Status DC Ondansetron HCl (Zofran) 4 mg PRN Q6HRS PRN IV NAUSEA/VOMITING Last administered on 12/09/18 06:01; Start 12/07/18 at 14:45 Acetaminophen/ Hydrocodone Bitart (Lortab 7.5/325) 1 tab PRN Q6HRS PRN PO PAIN Last administered on 12/09/18 06:03; Start 12/07/18 at 16:00 Amlodipine Besylate (Norvasc) 10 mg DAILY PO Last administered on 12/08/18 09: 00; Start 12/07/18 at 17:00 Losartan Potassium (Cozaar) 100 mg DAILY PO Last administered on 12/08/18 20: 34; Start 12/08/18 at 09:00 Pantoprazole Sodium (Protonix) 40 mg 1X ONCE PO Last administered on 12/07/18 17:20; Start 12/07/18 at 17:00; Stop 12/07/18 at 17:01; Status DC Pantoprazole Sodium (Protonix) 40 mg DAILYAC PO Last administered on 12/09/18 08:33; Start 12/08/18 at 07:30 Atorvastatin Calcium (Lipitor) 10 mg QHS PO Last administered on 12/07/18 20:50 ; Start 12/07/18 at 21:00 Hydralazine HCl (Apresoline) 50 mg TID PO Last administered on 12/09/18 08:32 ; Start 12/08/18 at 09:30 Isosorbide Mononitrate (Imdur) 30 mg DAILY PO ; Start 12/09/18 at 09:00 Active Scripts Active Reported Hydrocodone-Apap 7.5-325 (Hydrocodone Bit/Acetaminophen) 1 Tab Tablet 1 Tab PO PRN Q6HRS PRN Edarbyclor 40-25 Mg Tablet (Azilsartan/Chlorthalidone) 1 Each Tablet 1 Each PO DAILY Vitals/I & O Vital Sign - Last 24 Hours 12/08/18 12/08/18 12/08/18 12/08/18 09:00 09:00 09:13 09:23 Pulse 59 56 58 58 Resp 28 B/P (MAP) 158/58 158/67 (97) 158/67 158/59 Pulse Ox 94 12/08/18 12/08/18 12/08/18 12/08/18 10:00 11:00 12:00 12:00 Temp 98.6 98.6 Pulse 58 58 59 Resp 26 22 25 B/P (MAP) 147/58 (87) 147/50 (82) 146/72 (96) Pulse Ox 95 94 O2 Delivery Room Air Room Air 12/08/18 12/08/18 12/08/18 12/08/18 13:00 14:00 15:00 16:00 Pulse 54 54 52 B/P (MAP) 155/55 (88) 151/56 (87) 159/68 (98) Pulse Ox 93 94 O2 Delivery Room Air Room Air Room Air Room Air 12/08/18 12/08/18 12/08/18 12/08/18 16:00 16:10 16:12 16:14 Temp 98.6 98.6 Pulse 54 54 57 Resp 23 B/P (MAP) 171/88 (115) 171/77 163/70 Pulse Ox 94 O2 Delivery Room Air Room Air 12/08/18 12/08/18 12/08/18 12/08/18 16:30 17:00 17:15 20:00 Pulse 55 59 Resp 23 20 B/P (MAP) 168/76 (106) 153/59 (90) 188/80 (116) Pulse Ox 95 O2 Delivery Room Air Room Air O2 Flow Rate 96.0 12/08/18 12/08/18 12/08/18 12/08/18 20:00 20:34 20:34 22:00 Pulse 59 59 B/P (MAP) 188/80 188/80 O2 Delivery Room Air Room Air 12/08/18 12/08/18 12/09/18 12/09/18 22:25 23:59 00:00 00:27 Temp 98.7 98.7 Pulse 58 55 55 Resp 20 20 B/P (MAP) 152/64 (93) 178/66 (103) 178/66 Pulse Ox 94 94 O2 Delivery Room Air Room Air Room Air 12/09/18 12/09/18 12/09/18 12/09/18 01:00 04:00 04:20 04:27 Temp 98.2 98.2 Pulse 56 52 52 Resp 20 20 B/P (MAP) 166/65 (98) 188/83 (118) 188/83 Pulse Ox 94 94 O2 Delivery Room Air Room Air Room Air 12/09/18 12/09/18 12/09/18 12/09/18 04:54 06:00 06:03 07:05 Pulse 52 51 Resp 20 B/P (MAP) 177/74 (108) 163/72 (102) Pulse Ox 94 O2 Delivery Room Air Room Air O2 Flow Rate 96.0 12/09/18 08:32 Pulse 51 B/P (MAP) 163/72 Intake and Output 12/08/18 12/08/18 12/09/18 15:00 23:00 07:00 Intake Total 1045 ml 490 ml 50 ml Output Total 2125 ml 1450 ml 1525 ml Balance -1080 ml -960 ml -1475 ml SOLOMON JANG MD Dec 09, 2018 08:48
[2018-12-09] MEDS ORDERED: ISOSORBIDE MONONITRATE ER 30 MG TAB.ER.24H PO SCH (09:00)
[2018-12-09] MEDS: amLODIPine BESYLATE 10 MG TABLET PO SCH (09:00)
--- NOTE | 2018-12-09 09:01 | RAD ---
MR#: [id number] Date of Study: 12/09/2018 Ordering Physician: KARINA FLAHERTY, Referring Physician: NAVEED CAR Tech: Fela Parr BS, RTR, RDMS, RVT APPROVED REPORT Patient Location: IN-PATIENT Indications Uncontrolled HTN Risk Factors Hypertension Obesity Renal Artery Doppler Right Renal Artery Left Renal Arter y Proximal 200.0/27.0 cm/secProximal 231.0/33.0 cm/sec Mid 185.0/32.0 cm/secMid 216.0/38.0 cm/sec Distal 88.0/17.0 cm/secDistal 350.0/87.0 cm/sec Renal/Aorta Ratio 0.00Renal/Aorta Ratio 2.92 Prox. Resistive Index 0.87Prox. Resistive Index 0.86 Mid Resistive Index 0.83Mid Resistive Index 0.82 Distal Resistive Index 0.81Distal Resistive Index 0.87 Renal Measurements RightLeft Kidney Hkhprr73.8 cm cmKidney Sdwmrm84.2 cm cm Right Additional FindingsLeft Additional Findings lk mid/inf cyst 2.4 x 2.7 x 2.1 cm Findings Grayscale images of the bilateral kidneys demonstrate patent renal veins and a left kidney inferior/m id cyst measuring approximately 2.4 x 2.7 x 2.1 cm. Spectral waveforms and color Doppler of the right renal artery are grossly within normal limits with mildly elevated proximal velocities. Overall normal renal to aortic ratios. Velocities are mildly elevated at the proximal left renal artery and moderately elevated at the dista l left renal artery suggestive of greater than 50% stenosis. Due to patient difficulty with holding h er breath the images are limited and spectral waveforms are not clear. Critical Notification Critical Value: No <Conclusion> 1. No significant right renal artery stenosis. 2. Probable 50% stenosis involving the mid to distal left renal artery although images are limited. Signed by : Christiano Snider, Electronically Approved : 12/09/2018 09:00:36
--- NOTE | 2018-12-09 09:19 | PDOC ---
CARDIO Progress Notes Date and Time Date of Service 12/09/2018 Time of Evaluation 0850 Subjective Subjective: No Chest Pain, No shortness of breath, No Palpitations Vitals Vitals Vital Signs Date Time Temp Pulse Resp B/P (MAP) Pulse Ox O2 Delivery O2 Flow Rate FiO2 12/09/18 08:32 51 163/72 12/09/18 07:05 94 Room Air 96.0 12/09/18 06:03 20 12/09/18 04:20 98.2 98.2 Weight Weight [ ] Input and Output Intake and Output Intake and Output 12/09/18 06:59 Intake Total 1585 ml Output Total 5350 ml Balance -3765 ml Intake Oral 1560 ml IV Total 25 ml Output Urine Total 5350 ml Microbiology Micro Microbiology 12/07/18 Blood Culture - Preliminary, Resulted NO GROWTH AFTER 1 DAY Physical Exam HEENT: Neck Supple W Full Motion Chest: Symmetric LUNGS: Other (diminished bases) Heart: S1S2, RRR (SR/SB) Abdomen: Soft N/T Extremities: No Calf Tenderness, Other (2-3+ bilateral LE pitting edema) Neurology: alert, oriented, follow commands Assessment Assessment 1. Malignant HTN: due to Lifestyle issues and inconsistent use of BP meds and NSAID use. BP improved 2. Acute on chronic diastolic CHF; EF and WM nml with mod pulmonary HTN, compensated 3. Elevated troponin: mild peaked at 0.2. Suspect demand mediated, type 2 as above. EKG SB no acute ST-T wave changes, no CP 4. Tobaccoism 5. HLP 6. Obesity 7. Asymptomatic sinus bradycardia: no pauses. 8. Chronic high dose NSAID use with chronic low back pain. 6 tabs ibuprofen and 6 tabs of aleve a day avg. Recommendations 1. renal duplex revealed 50% LRAS. No AV timothy blocking agents. Home with hydralazine/imdur/norvasc/norvasc/losartan 2. Lipitor and ASA 3. Smoking cessation 4. Discussed lifestyle modification. Wt loss, minimizing processed food, exercise, DASH diet, decreasing soda. Stop routine NSAID and only do PRN 5. Will need outpt MYCHAL workup. 6. Encouraged to see ophthalmology routine appt. 7. Plan for lexiscan as an outpt. 8. HBPM BID for 1 wk. Discussed with pt. Follow up next week for BP check in our office then 5-[address] Araujo. Home today KARINA FLAHERTY APRN Dec 09, 2018 09:18
[2018-12-09] MEDS ORDERED: HYDR-2869 PO (12:22)
[2018-12-09] MEDS ORDERED: ATOR10TA60 PO (12:22)
[2018-12-09] MEDS ORDERED: ISOS30TA4 PO (12:22)
[2018-12-09] MEDS ORDERED: AMLO10TA8 PO (12:22)
[2018-12-09] MEDS ORDERED: ASPI325T11 PO (12:22)
--- NOTE | 2018-12-09 12:35 | PDOC3 ---
Discharge Summary Visit Information Date of Admission: Dec 07, 2018 Date of Discharge: Dec 09, 2018 Admitting Diagnosis Comment: Hypertensive emergency Obesity, BMI 42 Noncompliance History neck surgery-off gabapentin and flexeril History of orthopedic surgery-off warfarin Final Diagnosis Problems Medical Problems: (1) CHF (congestive heart failure) Status: Acute (2) Elevated troponin I level secondary to demand ischemia Status: Acute (3) Malignant hypertension Status: Acute (4) Shortness of breath secondary to the above Status: Acute Brief Hospital Course Allergies Allergies Coded Allergies Type Severity Reaction Last Updated Verified No Known Drug Allergies 04/17/15 No Vital Signs Vital Signs Date Time Temp Pulse Resp B/P (MAP) Pulse Ox O2 Delivery O2 Flow Rate FiO2 12/09/18 08:32 51 163/72 12/09/18 08:00 Room Air 12/09/18 08:00 98.6 96 98.6 12/09/18 07:05 96.0 12/09/18 06:03 20 Lab Results Laboratory Tests Test 12/07/18 14:50 12/07/18 16:05 12/08/18 03:50 Nasal Screen MRSA (PCR) Negative (Negative) Urine Collection Type Unknown Urine Color Yellow Urine Clarity Clear Urine pH 6.5 Urine Specific [place] <=1.005 Urine Protein Negative mg/dL (NEG-TRACE) Urine Glucose (UA) Negative mg/dL (NEG) Urine Ketones (Stick) Negative mg/dL (NEG) Urine Blood Negative (NEG) Urine Nitrite Negative (NEG) Urine Bilirubin Negative (NEG) Urine Urobilinogen Dipstick 0.2 mg/dL (0.2 mg/dL) Urine Leukocyte Esterase Negative (NEG) Urine RBC Occ /HPF (0-2) Urine WBC Occ /HPF (0-4) Urine Squamous Epithelial Cells Occ /LPF Urine Bacteria 0 /HPF (0-FEW) Urine Opiates Screen Neg (NEG) Urine Methadone Screen Neg (NEG) Urine Barbiturates Neg (NEG) Urine Phencyclidine Screen Neg (NEG) Urine Amphetamine/Methamphetamine Neg (NEG) Urine Benzodiazepines Screen Neg (NEG) Urine Cocaine Screen Neg (NEG) Urine Cannabinoids Screen Neg (NEG) Urine Ethyl Alcohol Neg (NEG) Sodium Level 141 mmol/L (136-145) Potassium Level 4.4 mmol/L (3.5-5.1) Chloride Level 105 mmol/L (98-107) Carbon Dioxide Level 29 mmol/L (21-32) Anion Gap 7 (6-14) Blood Urea Nitrogen 17 mg/dL (7-20) Creatinine 1.1 mg/dL (0.6-1.0) Estimated GFR (Cockcroft-Gault) 62.6 Glucose Level 142 mg/dL (70-99) Calcium Level 8.8 mg/dL (8.5-10.1) Troponin I Quantitative 0.212 ng/mL (0.000-0.055) Brief Hospital Course Ms. Patel is a 52 old female who presented with hypertensive emergency. She does not see a primary care physician regularly and has not been compliant with her medication at home. She will that she blood pressure on and off only when she experience headache or her chest felt like pressure. The patient was started on a Cardene drip in order to control her heart rate and blood pressure which initially was 240/130. The patient did not percent neurological deficits she had a mild elevation of troponin which was most likely demand ischemia from her significant malignant hypertension. The patient was given extensive counseling regarding the adverse effects of hypertension on her overall health. The patient acknowledged understanding of the instructions and she was provided with prescriptions for a new regimen noted to control her blood pressure better. This will contain hydralazine amlodipine and she'll continue with her chlorthalidone. She was also given Imdur. Signs and symptoms of alarm were discussed prior to discharge encouraged to continue with follow-up appointment in the outpatient setting with her primary care physician within one week As part of her workup she had an echocardiogram done with the following results: <Conclusion> The Ejection Fraction is >55%. The left ventricular systolic function is normal and the ejection fraction is within normal range. There is normal LV segmental wall motion. There is moderate concentric left ventricular hypertrophy. Doppler and Color Flow revealed trace tricuspid regurgitation with an estimated PAP of 43 mmHg. The IVC is dilated and collapses <50% with inspiration. Signed by : Christiano Snider, Electronically Approved : 12/07/2018 16:10:49 She was in good spirits to be dismissed home 25 minutes spent in the discharge process the patient in counseling coordination of care and arrangements for a safe discharge Gen.: well-developed well-nourished in no apparent distress Head: Normal shape atraumatic Eyes: Pupils equal reactive to light and accommodation, normal conjunctivae and lids Ears: Normal shape Nose: Normal shape no trauma Mouth: No exudates of the back of throat no thrush no lesions Neck: Supple no JVD no carotid bruit or lymphadenopathy no thyromegaly Chest: Lungs clear to auscultation with good inspiratory effort no crackles rales or rhonchi Cardiovascular: S1-S2 regular rhythm no murmurs gallops or rubs Abdomen: Bowel sounds present soft nontender no hepatosplenomegaly appreciated sign Extremities: No clubbing no cyanosis no edema peripheral pulses palpated bilaterally Neurological: Alert awake oriented in person time place and situation, cranial nerves II through XII intact, no motor or sensory deficits appreciated Psych: Appropriate mood, cooperative Discharge Information Condition at Discharge: Improved Follow Up: Weeks Disposition/Orders: D/C to Home Scheduled Amlodipine Besylate (Amlodipine Besylate) 10 Mg Tablet, 10 MG PO DAILY for htn for 30 Days, #30 Prescribed by: SOLOMON JANG MD on 12/09/18 1222 Aspirin (Aspirin Ec) 325 Mg Tablet.dr, 325 MG PO DAILYWBKFT for antiplatelet for 30 Days, #30 Prescribed by: SOLOMON JANG MD on 12/09/18 1222 Atorvastatin Calcium (Atorvastatin Calcium) 10 Mg Tablet, 10 MG PO QHS for dyslipidemia for 30 Days, #30 Prescribed by: SOLOMON JANG MD on 12/09/18 1222 Azilsartan Med/Chlorthalidone (Edarbyclor 40-25 Mg Tablet) 1 Each Tablet, 1 EACH PO DAILY, (Reported) Entered as Reported by: JAYDEN HATHAWAY on 03/29/15 1429 Last Action: Converted on 12/07/18 1347 by NAVEED CAR Hydralazine Hcl (Hydralazine Hcl) 50 Mg Tablet, 50 MG PO TID for htn for 30 Days , #90 Prescribed by: SOLOMON JANG MD on 12/09/18 1222 Isosorbide Mononitrate (Isosorbide Mononitrate Er) 30 Mg Tab.er.24h, 30 MG PO DAILY for htn for 30 Days, #30 Prescribed by: SOLOMON JANG MD on 12/09/18 1222 Scheduled PRN Hydrocodone Bit/Acetaminophen (Hydrocodone-Apap 7.5-325 ) 1 Tab Tablet, 1 TAB PO PRN Q6HRS PRN for PAIN, Ref 0 (Reported) Entered as Reported by: AICHA PEACE on 12/07/18 1556 Last Action: Continued on 12/07/181556 by AICHA PEACE Discontinued Medications Ferrous Sulfate (Ferrous Sulfate) 325 Mg Tablet, 1 TAB PO BID, #60 Ref 3 ( Reported) Entered as Reported by: ANNABELLE CELESTIN on 04/17/15 1057 Last Action: Discontinued on 12/07/181517 by AICHA PEACE Multivitamin (Multivitamins) 1 Each Tablet, 1 EACH PO DAILY, (Reported) Entered as Reported by: JAYDEN HATHAWAY on 03/29/15 1429 Last Action: Discontinued on 12/07/181517 by SOLOMON ARDON MD Dec 09, 2018 12:35
--- NOTE | 2018-12-09 13:57 | NUR ---
Discharge education provided for new medications and CHF. Upcoming appointments reviewed with patient and family member. Patient taken to car in wheelchair by RN.
[2018-12-24] MEDS ORDERED: ISOS30TA4 PO (15:12)
== END 2018-12-09 18:00 | disposition home or self-care (01) | DRG 304 ==
LOC: ER 11:26 → 1 WEST ICU 13:31
PROVIDERS: ADMIT Internal Medicine; ATTEND Internal Medicine
DX: I16.1 Hypertensive emergency (principal); I50.33 Acute on chronic diastolic (congestive) heart failure; I24.8 Other forms of acute ischemic heart disease; I11.0 Hypertensive heart disease with heart failure; E66.9 Obesity, unspecified; E78.5 Hyperlipidemia, unspecified; F17.210 Nicotine dependence, cigarettes, uncomplicated; G89.29 Other chronic pain; I27.20 Pulmonary hypertension, unspecified; K21.9 Gastro-esophageal reflux disease without esophagitis; Z96.641 Presence of right artificial hip joint; M19.90 Unspecified osteoarthritis, unspecified site; M54.5 Low back pain; Z82.49 Family history of ischemic heart disease and other diseases of the circulatory system; Z83.3 Family history of diabetes mellitus; Z87.11 Personal history of peptic ulcer disease; Z91.14 Patient's other noncompliance with medication regimen; Z91.19 Patient's noncompliance with other medical treatment and regimen; Z98.1 Arthrodesis status; Z68.39 Body mass index [BMI] 39.0-39.9, adult
CPT/HCPCS: 36415; 71045; 76770; 80048; 80053; 80061; 80307; 81001; 82550; 83605; 83880; 84443; 84484; 85025; 85379; 85610; 87040; 87641; 93005; 93306; 94640; 96361; 96374; 96375; 96376; J0360; J2405; J2930; J7030; J7050; J7620; 99285-25

== ENCOUNTER 2018-12-22 18:50 | Inpatient (IN) | payer BC ==
[~2018-12-22] VITALS: Ht 162.6 cm; Wt 104.4 kg
[~2018-12-22 18:50] MED LIST changes: +AMLO10TA8 PO; +ASPI325T11 PO; +ATOR10TA60 PO; +HYDR-2765 PO; +HYDR-2869 PO; +ISOS30TA4 PO
[2018-12-22] MEDS ORDERED: ASPIRIN CHEWABLE 81 MG TABLET. PO ONE (19:15)
[2018-12-22 19:56] LABS: BASO # 0.1 x10^3/uL (0.0-0.2); BASO % 1 % (0-3); EOS # 0.4 x10^3/uL (0.0-0.7); EOS % 4 % (0-3); HEMATOCRIT 46.7 % (36.0-47.0); HEMOGLOBIN 15.5 g/dL (12.0-15.5); LYMPH # 1.6 x10^3/uL (1.0-4.8); LYMPH % 19 % (24-48); MEAN CORPUSCULAR HEMOGLOBIN 31 pg (25-35); MEAN CORPUSCULAR HGB CONC 33 g/dL (31-37); MEAN CORPUSCULAR VOLUME 92 fL (79-100); MONO # 0.5 x10^3/uL (0.0-1.1); MONO % 6 % (0-9); NEUT # 5.9 x10^3uL (1.8-7.7); NEUT % 70 % (31-73); PLATELET COUNT 229 x10^3/uL (140-400); RED BLOOD COUNT 5.05 x10^6/uL (3.50-5.40); RED CELL DISTRIBUTION WIDTH 14.1 % (11.5-14.5); WHITE BLOOD COUNT 8.4 x10^3/uL (4.0-11.0)
[2018-12-22 20:09] LABS: PROTHROMBIN TIME PATIENT 11.9 SEC (11.7-14.0)
[2018-12-22] MEDS: NITROGLYCERIN SUBLINGUAL 0.4 MG BOTTLE OF 25. SL PRN ×3 (20:09→20:28)
[2018-12-22 20:10] LABS: CALCIUM 9.5 mg/dL (8.5-10.1); GFR 69.9; POTASSIUM 3.7 mmol/L (3.5-5.1)
[2018-12-22 20:16] LABS: ALBUMIN 3.5 g/dL (3.4-5.0); ALBUMIN/GLOBULIN RATIO 0.9 (1.0-1.7); TOTAL BILIRUBIN 0.3 mg/dL (0.2-1.0); TOTAL PROTEIN 7.4 g/dL (6.4-8.2)
[2018-12-22] MEDS ORDERED: IOHEXOL 350 MG/ML 100 ML VIAL. IV ONE (20:45)
--- NOTE | 2018-12-22 21:56 | PHYS DOC ---
Past Medical History Past Medical History: Hypertension (HAZEL GOODEN) Past Surgical History: Hip Replacement, Other Additional Past Surgical Histo: DISC REPLACEMENT,CARDIAC CATH (HAZEL GOODEN) Additional Information: 1 PPD Alcohol Use: None Drug Use: None (HAZEL GOODEN) Adult General Chief Complaint Chief Complaint: SHORTNESS OF BREATH HPI HPI Patient is a 52 year old F who is here with chest pain, pain in her L shoulder blade, hypertension and SOB. Pt was admitted here on 12/07/18 with malignant hypertension and elevated troponin. She underwent a stress test which was reassuring, an ECHO with an EF of >55% and was dx with CHF and felt to have demand ischemia related to her blood pressures. She did not undergo a cardiac cath (this was entered in error by nursing staff on triage in ER). Pt states she has continued to have SOB and some CP at home and is scheduled to see her PCP tomorrow for follow up but today had increased chest pain and pain in the shoulder blade that she describes as "sharp" and on arrival her blood pressure is very elevated at 224/86. . Pt was given ASA 325mg and Nitro 0.4mg SL x3 and did feel some relief and blood pressure improved. Her troponin is 0.135 which is down from her most recent troponin of 0.212 on 12/08/18, but not sure if this is trending down or back up. (HAZEL GOODEN) Review of Systems Review of Systems Constitutional: Denies fever or chills Respiratory: Denies cough. Reports SOB Cardiovascular: Reports chest pain GI: Denies abdominal pain, nausea, vomiting, bloody stools or diarrhea : Denies dysuria or hematuria Musculoskeletal: Reports pain in L shoulder blade Integument: Denies rash or skin lesions Neurologic: Denies headache, focal weakness or sensory changes All other systems were reviewed and found to be within normal limits, except as documented in this note. (HAZEL GOODEN) Current Medications Current Medications Current Medications Medications (Trade) Dose Ordered Sig/Nguyen Start Time Stop Time Status Last Admin Dose Admin Aspirin (Children'S Aspirin) 324 mg 1X ONCE 12/22/18 19:15 12/22/18 19:16 DC 4/24/19 19:24 324 MG Iohexol (Omnipaque 350 Mg/ml) 100 ml 1X ONCE 12/22/18 20:45 12/22/18 20:46 DC 12/22/18 21:03 100 ML Nitroglycerin (Nitrostat) 0.4 mg PRN Q5MIN PRN 12/22/18 19:30 12/22/18 20:28 0.4 MG (GERONIMO QUAN DO) Allergies Allergies Allergies Coded Allergies Type Severity Reaction Last Updated Verified No Known Drug Allergies 04/17/15 No (GERONIMO QUAN DO) Physical Exam Physical Exam Constitutional: Well developed, well nourished, no acute distress, non-toxic appearance. Neck: Normal range of motion, no tenderness, supple, no stridor. Cardiovascular:Heart rate regular rhythm, no murmur Lungs & Thorax: Bilateral breath sounds clear to auscultation Abdomen: Bowel sounds normal, soft, no tenderness, no masses, no pulsatile masses. Skin: Warm, dry, no erythema, no rash. 2+ edema in B lower legs Back: No tenderness, no CVA tenderness. Extremities: No tenderness, no cyanosis, no clubbing, ROM intact. 2+ edema in B lower legs Neurologic: Alert and oriented X 3, normal motor function, normal sensory function, no focal deficits noted. Psychologic: Affect normal, judgement normal, mood normal. (HAZEL GOODEN) Current Patient Data Vital Signs Vital Signs Date Time Temp Pulse Resp B/P (MAP) Pulse Ox O2 Delivery O2 Flow Rate FiO2 12/22/18 21:39 64 208/79 (122) Room Air 12/22/18 18:52 99.3 24 98 99.3 (GERONIMO QUAN DO) Lab Values Laboratory Tests Test 12/22/18 19:45 White Blood Count 8.4 x10^3/uL (4.0-11.0) Red Blood Count 5.05 x10^6/uL (3.50-5.40) Hemoglobin 15.5 g/dL (12.0-15.5) Hematocrit 46.7 % (36.0-47.0) Mean Corpuscular Volume 92 fL (79-100) Mean Corpuscular Hemoglobin 31 pg (25-35) Mean Corpuscular Hemoglobin Concent 33 g/dL (31-37) Red Cell Distribution Width 14.1 % (11.5-14.5) Platelet Count 229 x10^3/uL (140-400) Neutrophils (%) (Auto) 70 % (31-73) Lymphocytes (%) (Auto) 19 % (24-48) L Monocytes (%) (Auto) 6 % (0-9) Eosinophils (%) (Auto) 4 % (0-3) H Basophils (%) (Auto) 1 % (0-3) Neutrophils # (Auto) 5.9 x10^3uL (1.8-7.7) Lymphocytes # (Auto) 1.6 x10^3/uL (1.0-4.8) Monocytes # (Auto) 0.5 x10^3/uL (0.0-1.1) Eosinophils # (Auto) 0.4 x10^3/uL (0.0-0.7) Basophils # (Auto) 0.1 x10^3/uL (0.0-0.2) Prothrombin Time 11.9 SEC (11.7-14.0) Prothrombin Time INR 0.9 (0.8-1.1) Sodium Level 138 mmol/L (136-145) Potassium Level 3.7 mmol/L (3.5-5.1) Chloride Level 101 mmol/L (98-107) Carbon Dioxide Level 27 mmol/L (21-32) Anion Gap 10 (6-14) Blood Urea Nitrogen 14 mg/dL (7-20) Creatinine 1.0 mg/dL (0.6-1.0) Estimated GFR (Cockcroft-Gault) 69.9 BUN/Creatinine Ratio 14 (6-20) Glucose Level 92 mg/dL (70-99) Calcium Level 9.5 mg/dL (8.5-10.1) Magnesium Level 2.0 mg/dL (1.8-2.4) Total Bilirubin 0.3 mg/dL (0.2-1.0) Aspartate Amino Transferase (AST) 21 U/L (15-37) Alanine Aminotransferase (ALT) 43 U/L (14-59) Alkaline Phosphatase 108 U/L (46-116) Creatine Kinase 161 U/L (26-192) Creatine Kinase MB (Mass) 3.3 ng/mL (0.0-3.6) Creatine Kinase MB Relative Index 2.0 % (0-4) Troponin I Quantitative 0.135 ng/mL (0.000-0.055) NM-Yue-P-Type Natriuretic Peptide 494 pg/mL (0-124) H Total Protein 7.4 g/dL (6.4-8.2) Albumin 3.5 g/dL (3.4-5.0) Albumin/Globulin Ratio 0.9 (1.0-1.7) L Laboratory Tests 12/22/18 19:45 Laboratory Tests 12/22/18 19:45 (GERONIMO QUAN DO) EKG EKG NSR, 70bpm, no STEMI (HAZEL GOODEN) Radiology/Procedures Radiology/Procedures CTA chest done to check for PE and neg. small pleural effusion noted (HAZEL GOODEN) Course & Med Decision Making Course & Med Decision Making Pertinent Labs and Imaging studies reviewed. (See chart for details) Pt's pain mostly resolved with Nitro x3. She reports it 09/09. Her BP improved but then bumped back up. She was given IV hydralazine and then IV labetolol. Pt declined pain medicine stating she was feeling better. Pt does have an appt with her PCP tomorrow and was hoping to go home but discussed that I felt this was not a good idea with her increased chest pain today, hypertension and elevated troponin (possibly trending down). I recommended admission for further care and she agreed. (HAZEL GOODEN) Dragon Disclaimer Dragon Disclaimer This electronic medical record was generated, in whole or in part, using a voice recognition dictation system. (HAZEL GOODEN) Departure Departure Impression: Primary Impression: Chest pain Additional Impressions: Hypertension Elevated troponin Disposition: ADMITTED INPATIENT Admitting Physician: Kinjal Dickens (GERONIMO QUAN DO) Condition: GUARDED Referrals: BROOKE HOLLINS MD (PCP) Attending Signature Attending Signature I have reviewed the PA/SPECIAL EDUCATION CASE MANAGER's note and plan of care. I was available for consultation as needed during the patient's visit in the emergency department. I agree with the clinical impression, plan, and disposition. (GERONIMO QUAN DO) Problem Qualifiers HAZEL GOODEN Dec 22, 2018 21:55 QUAN,GERONIMO Barros DO Dec 23, 2018 05:45
[2018-12-22] MEDS ORDERED: HYDROcodone/APAP 7.5/325MG 1 TAB TABLET PO PRN (22:15)
--- NOTE | 2018-12-22 22:26 | RAD ---
CTA Chest with contrast: Clinical History: cp, soa, [id number] 100ml, no priors Shortness of breath. Axial helical images of the chest were obtained after the administration of 100 cc of IV Omni 350 and timed appropriately for a pulmonary arterial study. Conventional axial reconstruction was performed in addition to coronal, sagittal and bilateral oblique MIP (maximum intensity projection). This study was ordered to detect possible pulmonary embolism. There are no filling defects to suggest pulmonary embolism. There is a tiny left effusion. There is no mediastinal or hilar lymphadenopathy. The thoracic aorta appears normal. Impression: 1. No evidence of pulmonary embolism. 2. Tiny left pleural effusion. PQRS Compliance Statement: One or more of the following individualized dose reduction techniques were utilized for this examination: 1. Automated exposure control 2. Adjustment of the mA and/or kV according to patient size 3. Use of iterative reconstruction technique Electronically signed by: Nii Zeng III, MD (12/22/2018 10:23 PM) [facility]
[2018-12-22] MEDS ORDERED: hydrALAZINE 20 MG/ML VIAL. IVP ONE (22:30)
--- NOTE | 2018-12-22 22:48 | HP ---
ADMIT DATE: 12/22/2018 CHIEF COMPLAINT: Shortness of breath and chest discomfort. HISTORY OF PRESENT ILLNESS: The patient is a pleasant 52-year-old female who states she had a stress test last week and states it was probably negative. Now, she presents again with chest pain and shortness of breath. It is in the left shoulder blade, worse with moving, better with sitting still. They gave her some nitro that helped a little bit. Interestingly when we checked her troponin, it was slightly high at 0.135. I have discussed the case with the ER physician. We are going to admit the patient and consult Cardiology. PAST MEDICAL HISTORY: Hyperlipidemia, hypertension, previous elevations of her troponin and chronic pain. ALLERGIES: None. FAMILY HISTORY: Coronary artery disease. SOCIAL HISTORY: She does not drink, smoke or take drugs. MEDICATIONS: Reviewed, please refer to the MRAD. She is on atorvastatin, hydralazine, Imdur, amlodipine, aspirin and hydrocodone. REVIEW OF SYSTEMS: GENERAL: No history of weight change, weakness or fevers. SKIN: No bruising, hair changes or rashes. EYES: No blurred, double or loss of vision. NOSE AND THROAT: No history of nosebleeds, hoarseness or sore throat. HEART: She complains of chest pain. LUNGS: Denies cough, hemoptysis, wheezing or shortness of breath. GASTROINTESTINAL: Denies changes in appetite, nausea, vomiting, diarrhea or constipation. GENITOURINARY: No history of frequency, urgency, hesitancy or nocturia. NEUROLOGIC: Denies history of numbness, tingling, tremor or weakness. PSYCHIATRIC: No history of panic, anxiety or depression. ENDOCRINE: No history of heat or cold intolerance, polyuria or polydipsia. EXTREMITIES: Denies muscle weakness, joint pain, pain on walking or stiffness. PHYSICAL EXAMINATION: VITAL SIGNS: Temperature 99, pulse 80, respirations 18 and blood pressure 224/86. GENERAL: She is alert and cooperative. HEART: Normal S1 and S2. LUNGS: Clear. ABDOMEN: Soft. EXTREMITIES: Trace edema. SKIN: No rash. ENDOCRINE: No thyromegaly. LYMPHATICS: No cervical nodes. HEMATOPOIETIC: No bruises. PSYCHIATRIC: She is stable. LABORATORY DATA: Troponin is 0.135. EKG is sinus rhythm. ASSESSMENT AND PLAN: Malignant hypertension with elevated troponin and chest discomfort. The patient has been admitted. We will give her p.r.n. antihypertensives. Consult Cardiology, cardiac monitoring, serial enzymes, serial EKGs, full code, DVT prophylaxis, home medications. CLAUDE ARREOLA DO DR: RAGINI/uzair JOB#: [id number] / [id number]
[2018-12-23] VITALS (7 sets, daily range): BP systolic 137–187; BP diastolic 60–76
[2018-12-23] MEDS ORDERED: LABETALOL 20 MG/4 ML DISP.SYRIN. IVP ONE
--- NOTE | 2018-12-23 02:31 | NUR ---
pt arrived to unit per cart pt ambulated to restroom and then to bed. Pt denies pain at time of assessment poc explained vs obtained and stable will resume care and continue to monitor pt.call light in reach.
--- NOTE | 2018-12-23 06:19 | EKG ---
[facility] [address] [place] [address] Test Date: 2018-12-22 Test Time: 18:58:18 Pat Name: LEXY JON Department: Room: 262 1 Gender: F [employer] Supervisor: : [id number] Requested By: HAZEL GOODEN Order Number: [id number] Reading MD: Eddie Wilkins Measurements Intervals [place] Rate: 70 P: 30 WI: 166 QRS: 40 QRSD: 80 T: 41 QT: 418 QTc: 454 Interpretive Statements SINUS RHYTHM LEFT ATRIAL ABNORMALITY ABNORMAL ECG RI6.01 Unconfirmed report Compared to ECG 12/07/2018 11:43:34 Atrial abnormality now present Electronically Signed On 12-29-2018 11:43:02 CDT by Eddie Wilkins
[2018-12-23] MEDS ORDERED: ISOSORBIDE MONONITRATE ER 30 MG TAB.ER.24H PO SCH (09:00)
[2018-12-23] MEDS: ASPIRIN ENTERIC COATED 325 MG TABLET.DR. PO SCH (09:33)
[2018-12-23] MEDS: FUROSEMIDE 40 MG TABLET. PO SCH (09:33)
[2018-12-23] MEDS: CHLORTHALIDONE 25 MG TABLET. PO SCH (09:34)
[2018-12-23] MEDS: amLODIPine BESYLATE 10 MG TABLET PO SCH (09:34)
[2018-12-23] MEDS: LOSARTAN POTASSIUM 50 MG TABLET. PO SCH (09:34)
--- NOTE | 2018-12-23 09:36 | PDOC ---
PROGRESS NOTES Chief Complaint Chief Complaint chest pain, SOB History of Present Illness History of Present Illness Patient resting comfortably with sister at bedside. She continues to have some mild chest pain, but states that it is better than it was. Her BLE swelling is also improved this morning. Tele: NSR 60s Vitals Vitals Vital Signs Date Time Temp Pulse Resp B/P (MAP) Pulse Ox O2 Delivery O2 Flow Rate FiO2 12/23/18 07:41 Room Air 12/23/18 07:00 98.2 66 18 174/70 (104) 100 98.2 Physical Exam General: Alert, Oriented X3, No acute distress Heart: Regular rate, Normal S1, Normal S2, No murmurs Lungs: Clear Abdomen: Soft, No tenderness Extremities: No clubbing, No cyanosis, Other (BLE edema) Skin: No rashes, No breakdown, No significant lesion Labs LABS Laboratory Tests Test 12/22/18 19:45 12/23/18 01:00 12/23/18 07:00 White Blood Count 8.4 x10^3/uL (4.0-11.0) Red Blood Count 5.05 x10^6/uL (3.50-5.40) Hemoglobin 15.5 g/dL (12.0-15.5) Hematocrit 46.7 % (36.0-47.0) Mean Corpuscular Volume 92 fL (79-100) Mean Corpuscular Hemoglobin 31 pg (25-35) Mean Corpuscular Hemoglobin Concent 33 g/dL (31-37) Red Cell Distribution Width 14.1 % (11.5-14.5) Platelet Count 229 x10^3/uL (140-400) Neutrophils (%) (Auto) 70 % (31-73) Lymphocytes (%) (Auto) 19 % (24-48) Monocytes (%) (Auto) 6 % (0-9) Eosinophils (%) (Auto) 4 % (0-3) Basophils (%) (Auto) 1 % (0-3) Neutrophils # (Auto) 5.9 x10^3uL (1.8-7.7) Lymphocytes # (Auto) 1.6 x10^3/uL (1.0-4.8) Monocytes # (Auto) 0.5 x10^3/uL (0.0-1.1) Eosinophils # (Auto) 0.4 x10^3/uL (0.0-0.7) Basophils # (Auto) 0.1 x10^3/uL (0.0-0.2) Prothrombin Time 11.9 SEC (11.7-14.0) Prothromb Time International Ratio 0.9 (0.8-1.1) Sodium Level 138 mmol/L (136-145) Potassium Level 3.7 mmol/L (3.5-5.1) Chloride Level 101 mmol/L (98-107) Carbon Dioxide Level 27 mmol/L (21-32) Anion Gap 10 (6-14) Blood Urea Nitrogen 14 mg/dL (7-20) Creatinine 1.0 mg/dL (0.6-1.0) Estimated GFR (Cockcroft-Gault) 69.9 BUN/Creatinine Ratio 14 (6-20) Glucose Level 92 mg/dL (70-99) Calcium Level 9.5 mg/dL (8.5-10.1) Magnesium Level 2.0 mg/dL (1.8-2.4) Total Bilirubin 0.3 mg/dL (0.2-1.0) Aspartate Amino Transf (AST/SGOT) 21 U/L (15-37) Alanine Aminotransferase (ALT/SGPT) 43 U/L (14-59) Alkaline Phosphatase 108 U/L (46-116) Creatine Kinase 161 U/L (26-192) Creatine Kinase MB (Mass) 3.3 ng/mL (0.0-3.6) Creatine Kinase MB Relative Index 2.0 % (0-4) Troponin I Quantitative 0.135 ng/mL (0.000-0.055) 0.145 ng/mL (0.000-0.055) 0.163 ng/mL (0.000-0.055) GO-Sye-W-Type Natriuretic Peptide 494 pg/mL (0-124) Total Protein 7.4 g/dL (6.4-8.2) Albumin 3.5 g/dL (3.4-5.0) Albumin/Globulin Ratio 0.9 (1.0-1.7) Review of Systems Review of Systems chest pain improving, BLE swelling improving Assessment and Plan Assessmemt and Plan Problems Medical Problems: (1) Elevated troponin Status: Acute (2) Hypertension Status: Acute Assessment: Malignant Hypertension Elevated troponin BLE edema, improving Plan: Cardiology consulted Lasix 40 mg PO added, BLE edema improving overnight Encourage elevation of legs/ambulation Discussed need for medication adherence and sodium restriction Home medications Daily labs PT/OT Dispo: await Cardiology input Comment Review of Relevant I have reviewed the following items meg (where applicable) has been applied. Labs Laboratory Tests Test 12/22/18 19:45 12/23/18 01:00 12/23/18 07:00 White Blood Count 8.4 x10^3/uL (4.0-11.0) Red Blood Count 5.05 x10^6/uL (3.50-5.40) Hemoglobin 15.5 g/dL (12.0-15.5) Hematocrit 46.7 % (36.0-47.0) Mean Corpuscular Volume 92 fL (79-100) Mean Corpuscular Hemoglobin 31 pg (25-35) Mean Corpuscular Hemoglobin Concent 33 g/dL (31-37) Red Cell Distribution Width 14.1 % (11.5-14.5) Platelet Count 229 x10^3/uL (140-400) Neutrophils (%) (Auto) 70 % (31-73) Lymphocytes (%) (Auto) 19 % (24-48) Monocytes (%) (Auto) 6 % (0-9) Eosinophils (%) (Auto) 4 % (0-3) Basophils (%) (Auto) 1 % (0-3) Neutrophils # (Auto) 5.9 x10^3uL (1.8-7.7) Lymphocytes # (Auto) 1.6 x10^3/uL (1.0-4.8) Monocytes # (Auto) 0.5 x10^3/uL (0.0-1.1) Eosinophils # (Auto) 0.4 x10^3/uL (0.0-0.7) Basophils # (Auto) 0.1 x10^3/uL (0.0-0.2) Prothrombin Time 11.9 SEC (11.7-14.0) Prothromb Time International Ratio 0.9 (0.8-1.1) Sodium Level 138 mmol/L (136-145) Potassium Level 3.7 mmol/L (3.5-5.1) Chloride Level 101 mmol/L (98-107) Carbon Dioxide Level 27 mmol/L (21-32) Anion Gap 10 (6-14) Blood Urea Nitrogen 14 mg/dL (7-20) Creatinine 1.0 mg/dL (0.6-1.0) Estimated GFR (Cockcroft-Gault) 69.9 BUN/Creatinine Ratio 14 (6-20) Glucose Level 92 mg/dL (70-99) Calcium Level 9.5 mg/dL (8.5-10.1) Magnesium Level 2.0 mg/dL (1.8-2.4) Total Bilirubin 0.3 mg/dL (0.2-1.0) Aspartate Amino Transf (AST/SGOT) 21 U/L (15-37) Alanine Aminotransferase (ALT/SGPT) 43 U/L (14-59) Alkaline Phosphatase 108 U/L (46-116) Creatine Kinase 161 U/L (26-192) Creatine Kinase MB (Mass) 3.3 ng/mL (0.0-3.6) Creatine Kinase MB Relative Index 2.0 % (0-4) Troponin I Quantitative 0.135 ng/mL (0.000-0.055) 0.145 ng/mL (0.000-0.055) 0.163 ng/mL (0.000-0.055) RV-Ivj-O-Type Natriuretic Peptide 494 pg/mL (0-124) Total Protein 7.4 g/dL (6.4-8.2) Albumin 3.5 g/dL (3.4-5.0) Albumin/Globulin Ratio 0.9 (1.0-1.7) Laboratory Tests Test 12/22/18 19:45 12/23/18 01:00 12/23/18 07:00 White Blood Count 8.4 x10^3/uL (4.0-11.0) Red Blood Count 5.05 x10^6/uL (3.50-5.40) Hemoglobin 15.5 g/dL (12.0-15.5) Hematocrit 46.7 % (36.0-47.0) Mean Corpuscular Volume 92 fL (79-100) Mean Corpuscular Hemoglobin 31 pg (25-35) Mean Corpuscular Hemoglobin Concent 33 g/dL (31-37) Red Cell Distribution Width 14.1 % (11.5-14.5) Platelet Count 229 x10^3/uL (140-400) Neutrophils (%) (Auto) 70 % (31-73) Lymphocytes (%) (Auto) 19 % (24-48) Monocytes (%) (Auto) 6 % (0-9) Eosinophils (%) (Auto) 4 % (0-3) Basophils (%) (Auto) 1 % (0-3) Neutrophils # (Auto) 5.9 x10^3uL (1.8-7.7) Lymphocytes # (Auto) 1.6 x10^3/uL (1.0-4.8) Monocytes # (Auto) 0.5 x10^3/uL (0.0-1.1) Eosinophils # (Auto) 0.4 x10^3/uL (0.0-0.7) Basophils # (Auto) 0.1 x10^3/uL (0.0-0.2) Prothrombin Time 11.9 SEC (11.7-14.0) Prothromb Time International Ratio 0.9 (0.8-1.1) Sodium Level 138 mmol/L (136-145) Potassium Level 3.7 mmol/L (3.5-5.1) Chloride Level 101 mmol/L (98-107) Carbon Dioxide Level 27 mmol/L (21-32) Anion Gap 10 (6-14) Blood Urea Nitrogen 14 mg/dL (7-20) Creatinine 1.0 mg/dL (0.6-1.0) Estimated GFR (Cockcroft-Gault) 69.9 BUN/Creatinine Ratio 14 (6-20) Glucose Level 92 mg/dL (70-99) Calcium Level 9.5 mg/dL (8.5-10.1) Magnesium Level 2.0 mg/dL (1.8-2.4) Total Bilirubin 0.3 mg/dL (0.2-1.0) Aspartate Amino Transf (AST/SGOT) 21 U/L (15-37) Alanine Aminotransferase (ALT/SGPT) 43 U/L (14-59) Alkaline Phosphatase 108 U/L (46-116) Creatine Kinase 161 U/L (26-192) Creatine Kinase MB (Mass) 3.3 ng/mL (0.0-3.6) Creatine Kinase MB Relative Index 2.0 % (0-4) Troponin I Quantitative 0.135 ng/mL (0.000-0.055) 0.145 ng/mL (0.000-0.055) 0.163 ng/mL (0.000-0.055) BO-Yes-N-Type Natriuretic Peptide 494 pg/mL (0-124) Total Protein 7.4 g/dL (6.4-8.2) Albumin 3.5 g/dL (3.4-5.0) Albumin/Globulin Ratio 0.9 (1.0-1.7) Medications Current Medications Aspirin (Children'S Aspirin) 324 mg 1X ONCE PO Last administered on 12/22/18at 19:24; Start 12/22/18 at 19:15; Stop 12/22/18 at 19:16; Status DC Nitroglycerin (Nitrostat) 0.4 mg PRN Q5MIN PRN SL CHEST PAIN Last administered on 12/22/18at 20:28; Start 12/22/18 at 19:30 Iohexol (Omnipaque 350 Mg/ml) 100 ml 1X ONCE IV Last administered on 12/22/18at 21:03; Start 12/22/18 at 20:45; Stop 12/22/18 at 20:46; Status DC Hydralazine HCl (Apresoline Inj) 10 mg 1X ONCE IVP Last administered on 12/22/18at 22:55; Start 12/22/18 at 22:30; Stop 12/22/18 at 22:31; Status DC Furosemide (Lasix) 40 mg DAILY PO ; Start 12/23/18 at 09:00 Amlodipine Besylate (Norvasc) 10 mg DAILY PO ; Start 12/23/18 at 09:00 Aspirin (Ecotrin) 325 mg DAILYWBKFT PO ; Start 12/23/18 at 08:00 Atorvastatin Calcium (Lipitor) 10 mg QHS PO ; Start 12/23/18 at 21:00 Acetaminophen/ Hydrocodone Bitart (Lortab 7.5/325) 1 tab PRN Q6HRS PRN PO SEVERE PAIN; Start 12/22/18 at 22:15 Isosorbide Mononitrate (Imdur) 30 mg DAILY PO ; Start 12/23/18 at 09:00 Losartan Potassium (Cozaar) 50 mg DAILY PO ; Start 12/23/18 at 09:00 Hydralazine HCl (Apresoline) 50 mg TID PO ; Start 12/23/18 at 09:00 Chlorthalidone (Thalitone) 25 mg DAILY PO ; Start 12/23/18 at 09:00 Labetalol HCl (Normodyne Iv Push) 5 mg 1X ONCE IVP Last administered on 12/22/18at 23:51; Start 12/23/18 at 00:00; Stop 12/23/18 at 00:01; Status DC Active Scripts Active Aspirin Ec (Aspirin) 325 Mg Tablet.dr 325 Mg PO DAILYWBKFT 30 Days Amlodipine Besylate 10 Mg Tablet 10 Mg PO DAILY 30 Days Isosorbide Mononitrate Er (Isosorbide Mononitrate) 30 Mg Tab.er.24h 30 Mg PO DAILY 30 Days Hydralazine Hcl 50 Mg Tablet 50 Mg PO TID 30 Days Atorvastatin Calcium 10 Mg Tablet 10 Mg PO QHS 30 Days Reported Hydrocodone-Apap 7.5-325 (Hydrocodone Bit/Acetaminophen) 1 Tab Tablet 1 Tab PO PRN Q6HRS PRN Edarbyclor 40-25 Mg Tablet (Azilsartan/Chlorthalidone) 1 Each Tablet 1 Each PO DAILY Vitals/I & O Vital Sign - Last 24 Hours 12/22/18 12/22/18 12/22/18 12/22/18 18:52 19:30 19:59 20:09 Temp 99.3 99.3 Pulse 72 62 64 60 Resp 24 B/P (MAP) 224/86 (132) 191/73 (112) 178/76 (110) 178/76 Pulse Ox 98 O2 Delivery Room Air Room Air Room Air 12/22/18 12/22/18 12/22/18 12/22/18 20:17 20:28 20:29 21:39 Pulse 63 62 58 64 B/P (MAP) 186/75 168/69 168/71 (103) 208/79 (122) O2 Delivery Room Air Room Air 12/22/18 12/22/18 12/22/18 12/23/18 22:09 22:55 23:51 00:20 Pulse 56 58 58 B/P (MAP) 208/78 (121) 191/74 205/77 O2 Delivery Room Air Room Air 12/23/18 12/23/18 12/23/18 12/23/18 00:32 03:03 07:00 07:41 Temp 98.2 98.2 98.2 98.2 Pulse 66 63 66 Resp 18 18 18 B/P (MAP) 187/76 (113) 172/67 (102) 174/70 (104) Pulse Ox 95 93 100 O2 Delivery Room Air Room Air Room Air Room Air Intake and Output 12/22/18 12/22/18 12/23/18 15:00 23:00 07:00 Intake Total 0 ml Output Total 425 ml Balance -425 ml CLAUDE ARREOLA III DO Dec 23, 2018 09:36
--- NOTE | 2018-12-23 13:12 | NUR ---
SS following for discharge planning. SS reviewed pt chart. Pt is from home and is currently on room air. No discharge needs noted at this time. SS will continue to follow for discharge planning.
[2018-12-23] MEDS ORDERED: PANTOPRAZOLE 40 MG TABLET.DR. PO ONE (13:15)
[2018-12-23] MEDS ORDERED: ISOSORBIDE MONONITRATE ER 30 MG TAB.ER.24H PO ONE (13:15)
[2018-12-23] MEDS ORDERED: hydrALAZINE 20 MG/ML VIAL. IVP PRN (13:15)
--- NOTE | 2018-12-23 13:19 | PDOC2 ---
KARINA FLAHERTY JUICE SCALEMAN 12/23/18 1319: CARDIAC CONSULT DATE OF CONSULT Date of Consult DATE: 12/23/18 TIME: 12:48 REASON FOR CONSULT Reason for Consult: randolph-Percy REFERRING PHYSICIAN Referring Physician: Chest pain, HTN SOURCE Source: Chart review, Patient HISTORY OF PRESENT ILLNESS HISTORY OF PRESENT ILLNESS This is a pleasant 52 yo female admitted for complains of chest pain and high BP. Reports that she was told to go to ED due to continued chest pain and also with high BP. she noted her SBP at home at 170s. Upon admission she was noted with SBP at 224. She was here at [facility] about 2 weeks ago and her BP and trop were elevated at that time and also was having SOA and CP and all of these were t reated and actually had a stress test recently which showed no reversible defects. She continues to have DAILEY and dull agatha midchest pain that radiates to her back with some nausea. No palpitations. No recent falls or injury. She has been taking her medications regularly but has not been taking hydralazine because she was confused on often she needs to take it and hasonly been taking it daily. PAST MEDICAL HISTORY Past Medical History Cardiovascular: HTN, Hyperlipidemia, Valve insufficiency, Pulmonary hypertension Pulmonary: No pertinent hx CENTRAL NERVOUS SYSTEM: Other (None) GI: GERD, Peptic Ulcer disease Heme/Onc: No pertinent hx Hepatobiliary: No pertinent hx Psych: No pertinent hx Musculoskeletal: low back pain, Osteoarthritis, Other (lumbar and cervical stenosis) Rheumatologic: No pertinent hx Infectious disease: No pertinent hx ENT: No pertinent hx Renal/: No pertinent hx Endocrine: No pertinent hx Dermatology: No pertinent hx PAST SURGICAL HISTORY Past Surgical History Total hip replacement (right), Other (cervical fusion) FAMILY HISTORY Family History Diabetes (father), Heart Disease (mother; sister with cardiac dysrhythmia and ICD) SOCIAL HISTORY Social History Smoke: 1 pack per day (>30 yrs) ALCOHOL: none Drugs: None Lives: with Family CURRENT MEDICATIONS CURRENT MEDICATIONS Current Medications Medications (Trade) Dose Ordered Sig/Nguyen Route PRN Reason Start Time Stop Time Status Last Admin Dose Admin Aspirin (Children'S Aspirin) 324 mg 1X ONCE PO 12/22/18 19:15 12/22/18 19:16 DC 12/22/18 19:24 Nitroglycerin (Nitrostat) 0.4 mg PRN Q5MIN PRN SL CHEST PAIN 4/24/19 19:30 12/22/18 20:28 Iohexol (Omnipaque 350 Mg/ml) 100 ml 1X ONCE IV 12/22/18 20:45 12/22/18 20:46 DC 12/22/18 21:03 Hydralazine HCl (Apresoline Inj) 10 mg 1X ONCE IVP 12/22/18 22:30 12/22/18 22:31 DC 12/22/18 22:55 Furosemide (Lasix) 40 mg DAILY PO 12/23/18 09:00 12/23/18 09:33 Amlodipine Besylate (Norvasc) 10 mg DAILY PO 12/23/18 09:00 12/23/18 09:34 Aspirin (Ecotrin) 325 mg DAILYWBKFT PO 12/23/18 08:00 12/23/18 09:33 Isosorbide Mononitrate (Imdur) 30 mg DAILY PO 12/23/18 09:00 12/23/18 09:33 Losartan Potassium (Cozaar) 50 mg DAILY PO 12/23/18 09:00 12/23/18 09:34 Hydralazine HCl (Apresoline) 50 mg TID PO 12/23/18 09:00 12/23/18 09:34 Chlorthalidone (Thalitone) 25 mg DAILY PO 12/23/18 09:00 12/23/18 09:34 Labetalol HCl (Normodyne Iv Push) 5 mg 1X ONCE IVP 12/23/18 00:00 12/23/18 00:01 DC 12/22/18 23:51 ALLERGIES ALLERGIES: Coded Allergies: No Known Drug Allergies (Unverified , 04/17/15) ROS Review of System 14 point ROS evaluated with pertinent positives noted per HPI PHYSICAL EXAM General: Alert, Oriented X3, Cooperative, No acute distress HEENT: Atraumatic, Mucous membr. moist/pink Lungs: Clear to auscultation, Normal air movement Heart: Regular rate (SR), Normal S1, Normal S2, Other (2/6 systolic murmur to LLS border) Extremities: No cyanosis, Other (1+ bilateral LE pitting edema) Skin: No breakdown, No significant lesion Neuro: Normal speech, Sensation intact Psych/Mental Status: Mental status NL, Mood NL MUSCULOSKELETAL: Osteoarthritic changes both hands VITALS VITALS Vital Signs Date Time Temp Pulse Resp B/P (MAP) Pulse Ox O2 Delivery O2 Flow Rate FiO2 12/23/18 11:00 98.0 66 18 162/72 (102) 94 Room Air 98.0 LABS Lab: Laboratory Tests Test 12/22/18 19:45 12/23/18 01:00 12/23/18 07:00 White Blood Count 8.4 x10^3/uL (4.0-11.0) Red Blood Count 5.05 x10^6/uL (3.50-5.40) Hemoglobin 15.5 g/dL (12.0-15.5) Hematocrit 46.7 % (36.0-47.0) Mean Corpuscular Volume 92 fL (79-100) Mean Corpuscular Hemoglobin 31 pg (25-35) Mean Corpuscular Hemoglobin Concent 33 g/dL (31-37) Red Cell Distribution Width 14.1 % (11.5-14.5) Platelet Count 229 x10^3/uL (140-400) Neutrophils (%) (Auto) 70 % (31-73) Lymphocytes (%) (Auto) 19 % (24-48) Monocytes (%) (Auto) 6 % (0-9) Eosinophils (%) (Auto) 4 % (0-3) Basophils (%) (Auto) 1 % (0-3) Neutrophils # (Auto) 5.9 x10^3uL (1.8-7.7) Lymphocytes # (Auto) 1.6 x10^3/uL (1.0-4.8) Monocytes # (Auto) 0.5 x10^3/uL (0.0-1.1) Eosinophils # (Auto) 0.4 x10^3/uL (0.0-0.7) Basophils # (Auto) 0.1 x10^3/uL (0.0-0.2) Prothrombin Time 11.9 SEC (11.7-14.0) Prothromb Time International Ratio 0.9 (0.8-1.1) Sodium Level 138 mmol/L (136-145) Potassium Level 3.7 mmol/L (3.5-5.1) Chloride Level 101 mmol/L (98-107) Carbon Dioxide Level 27 mmol/L (21-32) Anion Gap 10 (6-14) Blood Urea Nitrogen 14 mg/dL (7-20) Creatinine 1.0 mg/dL (0.6-1.0) Estimated GFR (Cockcroft-Gault) 69.9 BUN/Creatinine Ratio 14 (6-20) Glucose Level 92 mg/dL (70-99) Calcium Level 9.5 mg/dL (8.5-10.1) Magnesium Level 2.0 mg/dL (1.8-2.4) Total Bilirubin 0.3 mg/dL (0.2-1.0) Aspartate Amino Transf (AST/SGOT) 21 U/L (15-37) Alanine Aminotransferase (ALT/SGPT) 43 U/L (14-59) Alkaline Phosphatase 108 U/L (46-116) Creatine Kinase 161 U/L (26-192) Creatine Kinase MB (Mass) 3.3 ng/mL (0.0-3.6) Creatine Kinase MB Relative Index 2.0 % (0-4) Troponin I Quantitative 0.135 ng/mL (0.000-0.055) 0.145 ng/mL (0.000-0.055) 0.163 ng/mL (0.000-0.055) KK-Bak-E-Type Natriuretic Peptide 494 pg/mL (0-124) Total Protein 7.4 g/dL (6.4-8.2) Albumin 3.5 g/dL (3.4-5.0) Albumin/Globulin Ratio 0.9 (1.0-1.7) IMAGES IMAGES <Conclusion> 1. No significant right renal artery stenosis. 2. Probable 50% stenosis involving the mid to distal left renal artery although images are limited. DATE: 12/09/18 0900 ECHOCARDIOGRAM ECHOCARDIOGRAM <Conclusion> The Ejection Fraction is >55%. The left ventricular systolic function is normal and the ejection fraction is within normal range. There is normal LV segmental wall motion. There is moderate concentric left ventricular hypertrophy. Doppler and Color Flow revealed trace tricuspid regurgitation with an estimated PAP of 43 mmHg. The IVC is dilated and collapses <50% with inspiration. DATE: 12/07/18 1610 STRESS TEST STRESS TEST Conclusion 1. No significant EKG changes with vasodilator testing. 2. Normal perfusion at stress/rest. 3. No significant TID but at upper limits of normal at 1.24. 4. Normal EF at > 60%. 5. Low risk study. 6. Nuclear images suggestive of mild dilated cardiomyopathy. DATE: 12/17/18 1051 ASSESSMENT/PLAN ASSESSMENT/PLAN 1. Accelerated HTN: remains labile. Has only bee taking hydralazine daily (was confused by it) 2. Acute on chronic diastolic CHF: Appears compensated 3. Elevated troponin: remains elevated at 0.1.and 0.2 wks ago with prior admission. EKG SR without acute changes 4. Chest pain: mixed features 5. Tobaccoism 6. HLP 7. Obesity 8. Hx of Asymptomatic sinus bradycardia: no pauses. 9. Anxiety; may need xanax. Recommendations 1. No AV timothy blocking agents. Restart prior meds discharge with such as hydralazine/imdur/norvasc/norvasc/losartan. Hydralazine IV PRN 2. Lipitor and ASA. Continue chlorthalidone, increase imdur 3. Smoking cessation 4. Reinforced lifestyle modification. Wt loss, minimizing processed food, exercise, DASH diet, decreasing soda. Stop routine NSAID and only do PRN 5. outpt MYCHAL workup and outpt ophthalmology routine appt. 6. Protonix. 7. Recent MPI noted no reversible defect, may need LHC with persistent trop elevation and chest pain. Will discuss with primary linux systems analyst. ALFREDA RUBIO MD 12/23/182111: CARDIAC CONSULT ASSESSMENT/PLAN ASSESSMENT/PLAN Patient seen and examined. Agree with [employer]'s assessment and plan. Accelerated hypertension prob from non compliance. Resume home ant ihypertensives and titrate for better control CP with atypical features. Recent echo showed normal LV function Due to recurrent admissions for CP and slightly elevated trop level, we will proceed with cardiac cath for definitive evaluation Acute on chronic diastolic HF better compensated Thank you for your consultation KARINA FLAHERTY JUICE SCALEMAN Dec 23, 2018 13:19 ALFREDA RUBIO MD Dec 23, 2018 21:12
[2018-12-23] MEDS ORDERED: ATORVASTATIN CALCIUM 10 MG TABLET. PO SCH (21:00)
[2018-12-24] VITALS (11 sets, daily range): BP systolic 115–176; BP diastolic 56–80
[2018-12-24 05:57] LABS: BASO # 0.1 x10^3/uL (0.0-0.2); BASO % 1 % (0-3); EOS # 0.3 x10^3/uL (0.0-0.7); EOS % 6 % (0-3); HEMATOCRIT 42.6 % (36.0-47.0); HEMOGLOBIN 14.5 g/dL (12.0-15.5); LYMPH # 1.1 x10^3/uL (1.0-4.8); LYMPH % 20 % (24-48); MEAN CORPUSCULAR HEMOGLOBIN 31 pg (25-35); MEAN CORPUSCULAR HGB CONC 34 g/dL (31-37); MEAN CORPUSCULAR VOLUME 92 fL (79-100); MONO # 0.8 x10^3/uL (0.0-1.1); MONO % 13 % (0-9); NEUT # 3.6 x10^3uL (1.8-7.7); NEUT % 61 % (31-73); PLATELET COUNT 217 x10^3/uL (140-400); RED BLOOD COUNT 4.63 x10^6/uL (3.50-5.40); RED CELL DISTRIBUTION WIDTH 13.9 % (11.5-14.5); WHITE BLOOD COUNT 5.9 x10^3/uL (4.0-11.0)
[2018-12-24 06:06] LABS: CALCIUM 9.3 mg/dL (8.5-10.1); CREATININE 1.1 mg/dL (0.6-1.0); GFR 62.6; POTASSIUM 3.9 mmol/L (3.5-5.1)
[2018-12-24] MEDS ORDERED: PANTOPRAZOLE 40 MG TABLET.DR. PO SCH (07:30)
[2018-12-24] MEDS ORDERED: ACETAMINOPHEN/CODEINE 300/30MG TABLET. PO PRN (08:30)
[2018-12-24] MEDS ORDERED: ONDANSETRON PF 4 MG/2 ML VIAL. IV PRN (08:30)
[2018-12-24] MEDS ORDERED: ONDANSETRON ODT 4 MG TAB.RAPDIS. PO PRN (08:30)
[2018-12-24] MEDS ORDERED: ACETAMINOPHEN 500 MG TABLET PO PRN (08:30)
[2018-12-24] MEDS: ASPIRIN ENTERIC COATED 325 MG TABLET.DR. PO SCH (08:40)
[2018-12-24] MEDS ORDERED: ISOSORBIDE MONONITRATE ER 30 MG TAB.ER.24H PO SCH (09:00)
[2018-12-24] MEDS ORDERED: LIDOCAINE 1% PF 2 ML VIAL. ONE (09:09)
[2018-12-24] MEDS ORDERED: IOHEXOL 300 MG/ML 100ML VIAL. ONE ×2 (09:10→10:02)
[2018-12-24] MEDS ORDERED: MIDAZOLAM HCL/PF 2 MG/2 ML VIAL. ONE (09:21)
[2018-12-24] MEDS ORDERED: fentaNYL PF VIAL 100 MCG/2 ML VIAL ONE (09:21)
[2018-12-24] MEDS ORDERED: HEPARIN for IV BOLUS 10,000 UNIT/10 ML VIAL. ONE (09:21)
[2018-12-24] MEDS ORDERED: VERAPAMIL 5 MG/2 ML VIAL. ONE (09:21)
[2018-12-24] MEDS ORDERED: NITROGLYCERIN 200 MCG/2 ML SYRINGE FOR CATH/VASC LAB. ONE (09:22)
[2018-12-24] MEDS ORDERED: VERAPAMIL 5 MG/2 ML VIAL. IART ONE (09:30)
[2018-12-24] MEDS ORDERED: LIDOCAINE 1% PF 2 ML VIAL. INJ ONE (09:30)
[2018-12-24] MEDS ORDERED: HEPARIN for IV BOLUS 10,000 UNIT/10 ML VIAL. IART ONE (09:30)
[2018-12-24] MEDS ORDERED: NITROGLYCERIN 200 MCG/2 ML SYRINGE FOR CATH/VASC LAB. IART ONE (09:30)
[2018-12-24] MEDS ORDERED: IOHEXOL 300 MG/ML 50 ML VIAL. IART ONE (09:30)
--- NOTE | 2018-12-24 09:53 | PDOC ---
PROGRESS NOTES Chief Complaint Chief Complaint 1. Accelerated HTN: 2. Acute on chronic diastolic CHF: Appears compensated 3. Elevated troponin: remains elevated at 0.1.and 0.2 wks ago with prior admission. EKG SR without acute changes 4. Chest pain: mixed features 5. Tobaccoism 6. HLP 7. Obesity 8. Hx of Asymptomatic sinus bradycardia: no pauses. 9. Anxiety; History of Present Illness History of Present Illness For [facility] later because of persistent chest pain and hypertension Blood pressure 170s, asymptomatic Some element of anxiety per cardiology note Troponin peaks 0.16 heart rate on the low side Plan: trial of Xanax [facility] later IV labetolol when necessary Cardiology will possibly increase some BP meds Vitals Vitals Vital Signs Date Time Temp Pulse Resp B/P (MAP) Pulse Ox O2 Delivery O2 Flow Rate FiO2 12/24/18 08:48 57 172/78 12/24/18 07:00 97.9 18 94 Room Air 97.9 Physical Exam General: Alert, Oriented X3, Cooperative, No acute distress Heart: Regular rate (SR), Normal S1, Normal S2, Other (2/6 systolic murmur to LLS border) Lungs: Clear Abdomen: Soft, No tenderness Extremities: No cyanosis, Other (1+ bilateral LE pitting edema) Skin: No breakdown, No significant lesion Labs LABS Laboratory Tests Test 12/24/18 05:15 White Blood Count 5.9 x10^3/uL (4.0-11.0) Red Blood Count 4.63 x10^6/uL (3.50-5.40) Hemoglobin 14.5 g/dL (12.0-15.5) Hematocrit 42.6 % (36.0-47.0) Mean Corpuscular Volume 92 fL (79-100) Mean Corpuscular Hemoglobin 31 pg (25-35) Mean Corpuscular Hemoglobin Concent 34 g/dL (31-37) Red Cell Distribution Width 13.9 % (11.5-14.5) Platelet Count 217 x10^3/uL (140-400) Neutrophils (%) (Auto) 61 % (31-73) Lymphocytes (%) (Auto) 20 % (24-48) Monocytes (%) (Auto) 13 % (0-9) Eosinophils (%) (Auto) 6 % (0-3) Basophils (%) (Auto) 1 % (0-3) Neutrophils # (Auto) 3.6 x10^3uL (1.8-7.7) Lymphocytes # (Auto) 1.1 x10^3/uL (1.0-4.8) Monocytes # (Auto) 0.8 x10^3/uL (0.0-1.1) Eosinophils # (Auto) 0.3 x10^3/uL (0.0-0.7) Basophils # (Auto) 0.1 x10^3/uL (0.0-0.2) Sodium Level 139 mmol/L (136-145) Potassium Level 3.9 mmol/L (3.5-5.1) Chloride Level 101 mmol/L (98-107) Carbon Dioxide Level 27 mmol/L (21-32) Anion Gap 11 (6-14) Blood Urea Nitrogen 14 mg/dL (7-20) Creatinine 1.1 mg/dL (0.6-1.0) Estimated GFR (Cockcroft-Gault) 62.6 Glucose Level 109 mg/dL (70-99) Calcium Level 9.3 mg/dL (8.5-10.1) Review of Systems Review of Systems A 14 point ROS was completed with the following noted as positive: Other systems reviewed and negative. \CONSTITUTIONAL: No fever or chills EYES: No recent changes SKIN: No rash or itching CARDIOVASCULAR: No chest pain, syncope, palpitations, or edema RESPIRATORY: No SOB or cough GASTROINTESTINAL: No nausea, vomiting or abdominal pain NEUROLOGICAL: No headaches or weakness ENDOCRINE: No cold or heat intolerance GENITOURINARY: No urgency or frequency of urination MUSCULOSKELETAL: No back pain or joint pain LYMPHATICS: No enlarged lymph nodes PSYCHIATRIC: No anxiety or depression Assessment and Plan Assessmemt and Plan Problems Medical Problems: (1) Elevated troponin Status: Acute (2) Hypertension Status: Acute Comment Review of Relevant I have reviewed the following items meg (where applicable) has been applied. Labs Laboratory Tests Test 12/22/18 19:45 12/23/18 01:00 12/23/18 07:00 12/24/18 05:15 White Blood Count 8.4 x10^3/uL (4.0-11.0) 5.9 x10^3/uL (4.0-11.0) Red Blood Count 5.05 x10^6/uL (3.50-5.40) 4.63 x10^6/uL (3.50-5.40) Hemoglobin 15.5 g/dL (12.0-15.5) 14.5 g/dL (12.0-15.5) Hematocrit 46.7 % (36.0-47.0) 42.6 % (36.0-47.0) Mean Corpuscular Volume 92 fL (79-100) 92 fL (79-100) Mean Corpuscular Hemoglobin 31 pg (25-35) 31 pg (25-35) Mean Corpuscular Hemoglobin Concent 33 g/dL (31-37) 34 g/dL (31-37) Red Cell Distribution Width 14.1 % (11.5-14.5) 13.9 % (11.5-14.5) Platelet Count 229 x10^3/uL (140-400) 217 x10^3/uL (140-400) Neutrophils (%) (Auto) 70 % (31-73) 61 % (31-73) Lymphocytes (%) (Auto) 19 % (24-48) 20 % (24-48) Monocytes (%) (Auto) 6 % (0-9) 13 % (0-9) Eosinophils (%) (Auto) 4 % (0-3) 6 % (0-3) Basophils (%) (Auto) 1 % (0-3) 1 % (0-3) Neutrophils # (Auto) 5.9 x10^3uL (1.8-7.7) 3.6 x10^3uL (1.8-7.7) Lymphocytes # (Auto) 1.6 x10^3/uL (1.0-4.8) 1.1 x10^3/uL (1.0-4.8) Monocytes # (Auto) 0.5 x10^3/uL (0.0-1.1) 0.8 x10^3/uL (0.0-1.1) Eosinophils # (Auto) 0.4 x10^3/uL (0.0-0.7) 0.3 x10^3/uL (0.0-0.7) Basophils # (Auto) 0.1 x10^3/uL (0.0-0.2) 0.1 x10^3/uL (0.0-0.2) Prothrombin Time 11.9 SEC (11.7-14.0) Prothromb Time International Ratio 0.9 (0.8-1.1) Sodium Level 138 mmol/L (136-145) 139 mmol/L (136-145) Potassium Level 3.7 mmol/L (3.5-5.1) 3.9 mmol/L (3.5-5.1) Chloride Level 101 mmol/L (98-107) 101 mmol/L (98-107) Carbon Dioxide Level 27 mmol/L (21-32) 27 mmol/L (21-32) Anion Gap 10 (6-14) 11 (6-14) Blood Urea Nitrogen 14 mg/dL (7-20) 14 mg/dL (7-20) Creatinine 1.0 mg/dL (0.6-1.0) 1.1 mg/dL (0.6-1.0) Estimated GFR (Cockcroft-Gault) 69.9 62.6 BUN/Creatinine Ratio 14 (6-20) Glucose Level 92 mg/dL (70-99) 109 mg/dL (70-99) Calcium Level 9.5 mg/dL (8.5-10.1) 9.3 mg/dL (8.5-10.1) Magnesium Level 2.0 mg/dL (1.8-2.4) Total Bilirubin 0.3 mg/dL (0.2-1.0) Aspartate Amino Transf (AST/SGOT) 21 U/L (15-37) Alanine Aminotransferase (ALT/SGPT) 43 U/L (14-59) Alkaline Phosphatase 108 U/L (46-116) Creatine Kinase 161 U/L (26-192) Creatine Kinase MB (Mass) 3.3 ng/mL (0.0-3.6) Creatine Kinase MB Relative Index 2.0 % (0-4) Troponin I Quantitative 0.135 ng/mL (0.000-0.055) 0.145 ng/mL (0.000-0.055) 0.163 ng/mL (0.000-0.055) EC-Vnu-G-Type Natriuretic Peptide 494 pg/mL (0-124) Total Protein 7.4 g/dL (6.4-8.2) Albumin 3.5 g/dL (3.4-5.0) Albumin/Globulin Ratio 0.9 (1.0-1.7) Laboratory Tests Test 12/24/18 05:15 White Blood Count 5.9 x10^3/uL (4.0-11.0) Red Blood Count 4.63 x10^6/uL (3.50-5.40) Hemoglobin 14.5 g/dL (12.0-15.5) Hematocrit 42.6 % (36.0-47.0) Mean Corpuscular Volume 92 fL (79-100) Mean Corpuscular Hemoglobin 31 pg (25-35) Mean Corpuscular Hemoglobin Concent 34 g/dL (31-37) Red Cell Distribution Width 13.9 % (11.5-14.5) Platelet Count 217 x10^3/uL (140-400) Neutrophils (%) (Auto) 61 % (31-73) Lymphocytes (%) (Auto) 20 % (24-48) Monocytes (%) (Auto) 13 % (0-9) Eosinophils (%) (Auto) 6 % (0-3) Basophils (%) (Auto) 1 % (0-3) Neutrophils # (Auto) 3.6 x10^3uL (1.8-7.7) Lymphocytes # (Auto) 1.1 x10^3/uL (1.0-4.8) Monocytes # (Auto) 0.8 x10^3/uL (0.0-1.1) Eosinophils # (Auto) 0.3 x10^3/uL (0.0-0.7) Basophils # (Auto) 0.1 x10^3/uL (0.0-0.2) Sodium Level 139 mmol/L (136-145) Potassium Level 3.9 mmol/L (3.5-5.1) Chloride Level 101 mmol/L (98-107) Carbon Dioxide Level 27 mmol/L (21-32) Anion Gap 11 (6-14) Blood Urea Nitrogen 14 mg/dL (7-20) Creatinine 1.1 mg/dL (0.6-1.0) Estimated GFR (Cockcroft-Gault) 62.6 Glucose Level 109 mg/dL (70-99) Calcium Level 9.3 mg/dL (8.5-10.1) Medications Current Medications Aspirin (Children'S Aspirin) 324 mg 1X ONCE PO Last administered on 12/22/18 19:24; Start 12/22/18 at 19:15; Stop 12/22/18 at 19:16; Status DC Nitroglycerin (Nitrostat) 0.4 mg PRN Q5MIN PRN SL CHEST PAIN Last administered on 12/22/18 20:28; Start 12/22/18 at 19:30 Iohexol (Omnipaque 350 Mg/ml) 100 ml 1X ONCE IV Last administered on 12/22/18 21:03; Start 12/22/18 at 20:45; Stop 12/22/18 at 20:46; Status DC Hydralazine HCl (Apresoline Inj) 10 mg 1X ONCE IVP Last administered on 12/22/18 22:55; Start 12/22/18 at 22:30; Stop 12/22/18 at 22:31; Status DC Furosemide (Lasix) 40 mg DAILY PO Last administered on 12/23/18 09:33; Start 12/23/18 at 09:00 Amlodipine Besylate (Norvasc) 10 mg DAILY PO Last administered on 12/23/18 09:34; Start 12/23/18 at 09:00 Aspirin (Ecotrin) 325 mg DAILYWBKFT PO Last administered on 12/24/18 08:40; Start 12/23/18 at 08:00 Atorvastatin Calcium (Lipitor) 10 mg QHS PO Last administered on 12/23/18 21:31; Start 12/23/18 at 21:00 Acetaminophen/ Hydrocodone Bitart (Lortab 7.5/325) 1 tab PRN Q6HRS PRN PO SEVERE PAIN; Start 12/22/18 at 22:15 Isosorbide Mononitrate (Imdur) 30 mg DAILY PO Last administered on 12/23/18 09:33; Start 12/23/18 at 09:00; Stop 12/23/18 at 13:21; Status DC Losartan Potassium (Cozaar) 50 mg DAILY PO Last administered on 12/23/18 09:34; Start 12/23/18 at 09:00 Hydralazine HCl (Apresoline) 50 mg TID PO Last administered on 4/25/19at 21:31; Start 12/23/18 at 09:00 Chlorthalidone (Thalitone) 25 mg DAILY PO Last administered on 12/23/18at 09:34; Start 12/23/18 at 09:00 Labetalol HCl (Normodyne Iv Push) 5 mg 1X ONCE IVP Last administered on 9at 23:51; Start 12/23/18 at 00:00; Stop 12/23/18 at 00:01; Status DC Pantoprazole Sodium (Protonix) 40 mg DAILYAC PO ; Start 12/24/18 at 07:30 Pantoprazole Sodium (Protonix) 40 mg 1X ONCE PO Last administered on 12/23/18at 13:53; Start 12/23/18 at 13:15; Stop 12/23/18 at 13:16; Status DC Isosorbide Mononitrate (Imdur) 60 mg DAILY PO ; Start 12/24/18 at 09:00 Hydralazine HCl (Apresoline Inj) 10 mg PRN Q4HRS PRN IVP ELEVATED BP, SEE COMMENTS Last administered on 12/24/18at 08:48; Start 12/23/18 at 13:15 Isosorbide Mononitrate (Imdur) 30 mg 1X ONCE PO Last administered on 12/23/18at 13:52; Start 12/23/18 at 13:15; Stop 12/23/18 at 13:27; Status DC Acetaminophen (Tylenol) 500 mg PRN Q6HRS PRN PO MILD PAIN / TEMP; Start 12/24/18 at 08:30 Acetaminophen/ Codeine Phosphate (Tylenol #3) 1 tab PRN Q6HRS PRN PO MODERATE PAIN; Start 12/24/18 at 08:30 Ondansetron HCl (Zofran) 4 mg PRN Q6HRS PRN IV NAUSEA/VOMITING; Start 12/24/18 at 08:30 Ondansetron HCl (Zofran Odt) 4 mg PRN Q6HRS PRN PO NAUSEA/VOMITING; Start 12/24/18 at 08:30 Lidocaine HCl (Xylocaine-Mpf 1% 2ml Vial) 2 ml STK-MED ONCE .ROUTE ; Start 12/24/18 at 09:09; Stop 12/24/18 at 09:10; Status DC Iohexol (Omnipaque 300 Mg/ml) 100 ml STK-MED ONCE .ROUTE ; Start 12/24/18 at 09:10; Stop 12/24/18 at 09:11; Status DC Heparin Sodium/ Sodium Chloride 500 ml @ As Directed STK-MED ONCE .ROUTE ; Start 12/24/18 at 09:10; Stop 12/24/18 at 09:11; Status DC Fentanyl Citrate (Fentanyl 2ml Vial) 100 mcg STK-MED ONCE .ROUTE ; Start 12/24/18 at 09:21; Stop 12/24/18 at 09:22; Status DC Midazolam HCl (Versed) 2 mg STK-MED ONCE .ROUTE ; Start 12/24/18 at 09:21; Stop 12/24/18 at 09:22; Status DC Heparin Sodium (Porcine) (Heparin Sodium) 10,000 unit STK-MED ONCE .ROUTE ; Start 12/24/18 at 09:21; Stop 12/24/18 at 09:22; Status DC Verapamil HCl (Verapamil) 5 mg STK-MED ONCE .ROUTE ; Start 12/24/18 at 09:21; Stop 12/24/18 at 09:22; Status DC Nitroglycerin (Nitroglycerin) 200 mcg STK-MED ONCE .ROUTE ; Start 12/24/18 at 09:22; Stop 12/24/18 at 09:23; Status DC Nitroglycerin (Nitroglycerin) 200 mcg 1X ONCE IART ; Start 12/24/18 at 09:30; Stop 12/24/18 at 09:33; Status DC Verapamil HCl (Verapamil) 2.5 mg 1X ONCE IART ; Start 12/24/18 at 09:30; Stop 12/24/18 at 09:33; Status DC Heparin Sodium (Porcine) (Heparin Sodium) 2,500 unit 1X ONCE IART ; Start 12/24/18 at 09:30; Stop 12/24/18 at 09:33; Status DC Heparin Sodium/ Sodium Chloride (HEPARIN for ARTERIAL LINE FLUSH) 1,000 unit 1X ONCE IART ; Start 12/24/18 at 09:30; Stop 12/24/18 at 09:33; Status DC Iohexol (Omnipaque 300 Mg/ml) 50 ml 1X ONCE IART ; Start 12/24/18 at 09:30; Stop 12/24/18 at 09:33; Status DC Lidocaine HCl (Xylocaine-Mpf 1% 2ml Vial) 2 ml 1X ONCE INJ ; Start 12/24/18 at 09:30; Stop 12/24/18 at 09:33; Status DC Active Scripts Active Aspirin Ec (Aspirin) 325 Mg Tablet.dr 325 Mg PO DAILYWBKFT 30 Days Amlodipine Besylate 10 Mg Tablet 10 Mg PO DAILY 30 Days Isosorbide Mononitrate Er (Isosorbide Mononitrate) 30 Mg Tab.er.24h 30 Mg PO DAILY 30 Days Hydralazine Hcl 50 Mg Tablet 50 Mg PO TID 30 Days Atorvastatin Calcium 10 Mg Tablet 10 Mg PO QHS 30 Days Reported Hydrocodone-Apap 7.5-325 (Hydrocodone Bit/Acetaminophen) 1 Tab Tablet 1 Tab PO PRN Q6HRS PRN Edarbyclor 40-25 Mg Tablet (Azilsartan/Chlorthalidone) 1 Each Tablet 1 Each PO DAILY Vitals/I & O Vital Sign - Last 24 Hours 12/23/18 12/23/18 12/23/18 12/23/18 11:00 13:52 13:53 15:00 Temp 98.0 97.7 98.0 97.7 Pulse 66 66 66 71 Resp 18 18 B/P (MAP) 162/72 (102) 162/72 162/72 143/64 (90) Pulse Ox 94 97 O2 Delivery Room Air Room Air 12/23/18 12/23/18 12/23/18 12/23/18 19:02 20:01 21:31 22:09 Temp 98.2 98.1 98.2 98.1 Pulse 66 66 64 Resp 16 16 B/P (MAP) 148/65 (92) 148/65 137/60 (85) Pulse Ox 94 93 O2 Delivery Room Air Room Air Room Air 12/24/18 12/24/18 12/24/18 02:06 07:00 08:48 Temp 97.8 97.9 97.8 97.9 Pulse 58 59 57 Resp 16 18 B/P (MAP) 147/64 (91) 168/74 (105) 172/78 Pulse Ox 93 94 O2 Delivery Room Air Room Air Intake and Output 12/23/18 12/23/18 12/24/18 15:00 23:00 07:00 Intake Total 120 ml 540 ml Output Total 250 ml Balance 120 ml 290 ml NAVEED CAR MD Dec 24, 2018 09:53
[2018-12-24] MEDS ORDERED: ALPRAZolam 0.25 MG TABLET PO PRN (10:00)
[2018-12-24] MEDS ORDERED: IOHEXOL 300 MG/ML 100ML VIAL. IART ONE (10:15)
[2018-12-24] MEDS ORDERED: NITROGLYCERIN SUBLINGUAL 0.4 MG BOTTLE OF 25. SL PRN (10:15)
[2018-12-24] MEDS ORDERED: IV 1/2 NORMAL SALINE 1,000 ML IV SCH (10:15)
[2018-12-24] MEDS ORDERED: CONTRAST GIVEN. MC PRN (10:15)
--- NOTE | 2018-12-24 10:15 | PDOC ---
MODERATE SEDATION ASSESSMENT RISKS/ALTERNATIVES Risks/Alternatives Risks and alternatives of this type of sedation and procedure discussed with: RISK/ALTERNATIVES: Patient H & P ON CHART H & P H & P on chart and reviewed for co-morbid conditions and appropriate labs. H&P ON CHART: Yes STATUS PREG STATUS ASSESSED: N/A MEDS/ALLERGIES REVIEWED Meds/Allergies Reviewed Medications and Allergies including time and route of recently administered narcotics and sedatives. MEDS/ALLERGIES REVIEWED: Yes ASA RATING ASA RATING: II AIRWAY ASSESSMENT Airway Assessment Airway patency, oral function limitations, presence of caps, crowns, dentures, partials, and ability to extend neck assessed. AIRWAY ASSESSMENT: Yes MALLAMPATI SCORE MALLAMPATI SCORE: II PRE-SEDATION ASSESSMENT PRE-SEDATION ASSESSMENT: Yes ALFREDA RUBIO MD Dec 24, 2018 10:15
--- NOTE | 2018-12-24 10:25 | CARD ---
MR#: [id number] Date of Study: 12/24/2018 Ordering Physician: KARINA FLAHERTY, Referring Physician: CLAUDE ARREOLA Tech: SARAH TURNER RTR APPROVED REPORT Technologist: SARAH TUNRER RTR Nurse: MARIANO DOMINGUEZ RN Procedure(s) performed: Left heart catheterization, selective coronary angiography, left ventriculogr aphy and aortogram via right transradial approach Moderate sedation time:32 mins Fluoro time:6.1 MIN Dose:66 GYCM2 Contrast:180 HISTORY : Unstable angina and resistant hypertension. [facility] Clinical Frailty Scale [facility] Clinical Frailty Scale: Very Fit Heart Failure Heart Failure: Yes If Yes, Newly Diagnosed: No If Yes, HF Type: Diastolic If Yes, NYHA Class: Class III PROCEDURE NARRATIVE After explaining the risks, benefits and alternative options, informed consent was obtained from lana ent. Patient was brought to the cardiac Cut Off Saw Operator and right wrist was prepped and draped in the usual fashion after confirming a positive modified Godwin's test. Arterial access was obtained in the righ t radial artery and a 6 [place] sheath was inserted. 6 [place] Luís catheter was used to perform tee ective angiography of the right coronary artery and left ventriculography. 6 [place] JL 3.5 catheter w as used to perform selective angiography of the left coronary artery. Finally, 5 [place] pigtail cath eter was used to perform descending aortogram to rule out renal artery stenosis. Patient tolerated th e procedure well. Hemostasis was achieved using TR band. There were no immediate complications. Th e following findings were noted. FINDINGS 1. Hemodynamics: Left ventricular end-diastolic pressure of 18 mmHg. No pullback gradient across th e aortic valve. 2. Left ventriculography: Normal left ventricle systolic function with ejection fraction estimated at 60%. No significant mitral regurgitation seen. 3. Coronary angiography: a. The left main coronary artery arose from the left sinus of Valsalva, gave rise to the left anteri or descending and left circumflex arteries and did not show any significant stenosis. b. The left anterior descending artery did not show any significant stenosis. c. The left circumflex artery did not show any significant stenosis. d. The right coronary artery was a large and dominant vessel arising from the right sinus of Valsalv a that did not show any significant stenosis. e. Aortogram did not show any significant stenosis involving right or left renal arteries. Conclusion 1. No significant coronary artery disease 2. No significant renal artery stenosis 3. Normal left ventricle systolic function with ejection fraction estimated at 60% Signed by : Marlon Araujo, Electronically Approved : 12/24/2018 10:24:37
[2018-12-24] MEDS: LOSARTAN POTASSIUM 50 MG TABLET. PO SCH (10:40)
[2018-12-24] MEDS: CHLORTHALIDONE 25 MG TABLET. PO SCH (10:40)
[2018-12-24] MEDS: amLODIPine BESYLATE 10 MG TABLET PO SCH (10:41)
--- NOTE | 2018-12-24 12:35 | NUR ---
SS following up with discharge planning. PT/OT evaluated pt and recommended home. No discharge needs noted at this time. SS will continue to follow for pending discharge needs.
[2018-12-24] MEDS: FUROSEMIDE 40 MG TABLET. PO SCH (13:41)
--- NOTE | 2018-12-24 15:10 | PDOC3 ---
Discharge Summary Visit Information Date of Admission: Dec 23, 2018 Date of Discharge: Dec 24, 2018 Admitting Diagnosis Comment: 1. Accelerated HTN: 2. Acute on chronic diastolic CHF: Appears compensated 3. s/p clean LHC (12/23) 5. Tobaccoism 6. HLP 7. Obesity 8. Hx of Asymptomatic sinus bradycardia: no pauses. 9. Anxiety; Final Diagnosis Problems Medical Problems: (1) Elevated troponin Status: Acute (2) Hypertension Status: Acute Brief Hospital Course Allergies Allergies Coded Allergies Type Severity Reaction Last Updated Verified No Known Drug Allergies 04/17/15 No Vital Signs Vital Signs Date Time Temp Pulse Resp B/P (MAP) Pulse Ox O2 Delivery O2 Flow Rate FiO2 12/24/18 14:53 98.1 67 20 129/62 (84) 94 Room Air 98.1 12/24/18 10:12 2.0 Lab Results Laboratory Tests Test 12/22/18 19:45 12/23/18 01:00 12/23/18 07:00 12/24/18 05:15 White Blood Count 8.4 x10^3/uL (4.0-11.0) 5.9 x10^3/uL (4.0-11.0) Red Blood Count 5.05 x10^6/uL (3.50-5.40) 4.63 x10^6/uL (3.50-5.40) Hemoglobin 15.5 g/dL (12.0-15.5) 14.5 g/dL (12.0-15.5) Hematocrit 46.7 % (36.0-47.0) 42.6 % (36.0-47.0) Mean Corpuscular Volume 92 fL (79-100) 92 fL (79-100) Mean Corpuscular Hemoglobin 31 pg (25-35) 31 pg (25-35) Mean Corpuscular Hemoglobin Concent 33 g/dL (31-37) 34 g/dL (31-37) Red Cell Distribution Width 14.1 % (11.5-14.5) 13.9 % (11.5-14.5) Platelet Count 229 x10^3/uL (140-400) 217 x10^3/uL (140-400) Neutrophils (%) (Auto) 70 % (31-73) 61 % (31-73) Lymphocytes (%) (Auto) 19 % (24-48) 20 % (24-48) Monocytes (%) (Auto) 6 % (0-9) 13 % (0-9) Eosinophils (%) (Auto) 4 % (0-3) 6 % (0-3) Basophils (%) (Auto) 1 % (0-3) 1 % (0-3) Neutrophils # (Auto) 5.9 x10^3uL (1.8-7.7) 3.6 x10^3uL (1.8-7.7) Lymphocytes # (Auto) 1.6 x10^3/uL (1.0-4.8) 1.1 x10^3/uL (1.0-4.8) Monocytes # (Auto) 0.5 x10^3/uL (0.0-1.1) 0.8 x10^3/uL (0.0-1.1) Eosinophils # (Auto) 0.4 x10^3/uL (0.0-0.7) 0.3 x10^3/uL (0.0-0.7) Basophils # (Auto) 0.1 x10^3/uL (0.0-0.2) 0.1 x10^3/uL (0.0-0.2) Prothrombin Time 11.9 SEC (11.7-14.0) Prothromb Time International Ratio 0.9 (0.8-1.1) Sodium Level 138 mmol/L (136-145) 139 mmol/L (136-145) Potassium Level 3.7 mmol/L (3.5-5.1) 3.9 mmol/L (3.5-5.1) Chloride Level 101 mmol/L (98-107) 101 mmol/L (98-107) Carbon Dioxide Level 27 mmol/L (21-32) 27 mmol/L (21-32) Anion Gap 10 (6-14) 11 (6-14) Blood Urea Nitrogen 14 mg/dL (7-20) 14 mg/dL (7-20) Creatinine 1.0 mg/dL (0.6-1.0) 1.1 mg/dL (0.6-1.0) Estimated GFR (Cockcroft-Gault) 69.9 62.6 BUN/Creatinine Ratio 14 (6-20) Glucose Level 92 mg/dL (70-99) 109 mg/dL (70-99) Calcium Level 9.5 mg/dL (8.5-10.1) 9.3 mg/dL (8.5-10.1) Magnesium Level 2.0 mg/dL (1.8-2.4) Total Bilirubin 0.3 mg/dL (0.2-1.0) Aspartate Amino Transf (AST/SGOT) 21 U/L (15-37) Alanine Aminotransferase (ALT/SGPT) 43 U/L (14-59) Alkaline Phosphatase 108 U/L (46-116) Creatine Kinase 161 U/L (26-192) Creatine Kinase MB (Mass) 3.3 ng/mL (0.0-3.6) Creatine Kinase MB Relative Index 2.0 % (0-4) Troponin I Quantitative 0.135 ng/mL (0.000-0.055) 0.145 ng/mL (0.000-0.055) 0.163 ng/mL (0.000-0.055) AS-Xya-A-Type Natriuretic Peptide 494 pg/mL (0-124) Total Protein 7.4 g/dL (6.4-8.2) Albumin 3.5 g/dL (3.4-5.0) Albumin/Globulin Ratio 0.9 (1.0-1.7) Laboratory Tests Test 12/24/18 05:15 White Blood Count 5.9 x10^3/uL (4.0-11.0) Red Blood Count 4.63 x10^6/uL (3.50-5.40) Hemoglobin 14.5 g/dL (12.0-15.5) Hematocrit 42.6 % (36.0-47.0) Mean Corpuscular Volume 92 fL (79-100) Mean Corpuscular Hemoglobin 31 pg (25-35) Mean Corpuscular Hemoglobin Concent 34 g/dL (31-37) Red Cell Distribution Width 13.9 % (11.5-14.5) Platelet Count 217 x10^3/uL (140-400) Neutrophils (%) (Auto) 61 % (31-73) Lymphocytes (%) (Auto) 20 % (24-48) Monocytes (%) (Auto) 13 % (0-9) Eosinophils (%) (Auto) 6 % (0-3) Basophils (%) (Auto) 1 % (0-3) Neutrophils # (Auto) 3.6 x10^3uL (1.8-7.7) Lymphocytes # (Auto) 1.1 x10^3/uL (1.0-4.8) Monocytes # (Auto) 0.8 x10^3/uL (0.0-1.1) Eosinophils # (Auto) 0.3 x10^3/uL (0.0-0.7) Basophils # (Auto) 0.1 x10^3/uL (0.0-0.2) Sodium Level 139 mmol/L (136-145) Potassium Level 3.9 mmol/L (3.5-5.1) Chloride Level 101 mmol/L (98-107) Carbon Dioxide Level 27 mmol/L (21-32) Anion Gap 11 (6-14) Blood Urea Nitrogen 14 mg/dL (7-20) Creatinine 1.1 mg/dL (0.6-1.0) Estimated GFR (Cockcroft-Gault) 62.6 Glucose Level 109 mg/dL (70-99) Calcium Level 9.3 mg/dL (8.5-10.1) Brief Hospital Course Ms. Patel is a 52 old AA female, admitted for cp with mixed features. SOme anxiety, BP high, so C done which was clean, Cleared for home today 2 notes. Dispo: home Proc; LHC Discharge Information Condition at Discharge: Improved, Stable Follow Up: Weeks (pcp prn) Disposition/Orders: D/C to Home Scheduled Amlodipine Besylate (Amlodipine Besylate) 10 Mg Tablet, 10 MG PO DAILY for htn for 30 Days, #30 Prescribed by: SOLOMON JANG MD on 12/09/181221 Last Action: Continued on 12/22/182213 by CLAUDE ARREOLA Aspirin (Aspirin Ec) 325 Mg Tablet.dr 325 MG PO DAILYWBKFT for antiplatelet for 30 Days, #30 Prescribed by: SOLOMON JANG MD on 12/09/181221 Last Action: Continued on 12/22/182213 by NIACorbin ARREOLA Atorvastatin Calcium (Atorvastatin Calcium) 10 Mg Tablet, 10 MG PO QHS for dyslipidemia for 30 Days, #30 Prescribed by: SOLOMON JANG MD on 12/09/181221 Last Action: Continued on 12/22/182213 by CLAUDE ARREOLA Azilsartan Med/Chlorthalidone (Edarbyclor 40-25 Mg Tablet) 1 Each Tablet, 1 EACH PO DAILY, (Reported) Entered as Reported by: JAYDEN HATHAWAY on 03/29/15 1429 Last Action: Converted on 12/22/182213 by CLAUDE ARREOLA Hydralazine Hcl (Hydralazine Hcl) 50 Mg Tablet, 50 MG PO TID for htn for 30 Days, #90 Prescribed by: SOLOMON JANG MD on 12/09/181221 Last Action: Converted on 12/22/182213 by CLAUDE ARREOLA Isosorbide Mononitrate (Isosorbide Mononitrate Er) 30 Mg Tab.er.24h, 30 MG PO DAILY for htn for 30 Days, #30 Prescribed by: SOLOMON JANG MD on 12/09/181221 Last Action: Continued on 12/22/182213 by CLAUDE ARREOLA Scheduled PRN Hydrocodone Bit/Acetaminophen (Hydrocodone-Apap 7.5-325 ) 1 Tab Tablet, 1 TAB PO PRN Q6HRS PRN for PAIN, Ref 0 (Reported) Entered as Reported by: AICHA PEACE on 12/07/18 3976 Last Action: Continued on 12/22/182213 by NAVEED NUÑEZ MD Dec 24, 2018 15:10
[2018-12-24] MEDS ORDERED: ISOS30TA4 PO (15:12)
--- NOTE | 2018-12-24 16:37 | NUR ---
Discharge Note: LEXY JON [address] Discharge instructions and discharge home medications reviewed with Patient and Family Member and a copy given. All questions have been answered and understanding verbalized. The following instructions and handouts were given: CP, HTN, post cardiac cath, edema, cardiac rehab Discontinued lines and drains: Peripheral IV intact x2 Patient discharged to Home or Self Care with Family Member via Wheelchair
== END 2018-12-24 14:35 | disposition home or self-care (01) | DRG 287 ==
LOC: ER 18:50 → 2 SOUTH 21:39
PROVIDERS: ADMIT Internal Medicine; ATTEND Internal Medicine
PROC: 4A023N7 Measurement of Cardiac Sampling and Pressure, Left Heart, Percutaneous Approach (ICD-10-PCS; principal; 2018-12-24)
PROC: B2151ZZ Fluoroscopy of Left Heart using Low Osmolar Contrast (ICD-10-PCS; 2018-12-24)
PROC: B2111ZZ Fluoroscopy of Multiple Coronary Arteries using Low Osmolar Contrast (ICD-10-PCS; 2018-12-24)
PROC: B3101ZZ Fluoroscopy of Thoracic Aorta using Low Osmolar Contrast (ICD-10-PCS; 2018-12-24)
DX: I11.0 Hypertensive heart disease with heart failure (principal); R07.89 Other chest pain; F41.9 Anxiety disorder, unspecified; I50.33 Acute on chronic diastolic (congestive) heart failure; E66.9 Obesity, unspecified; E78.5 Hyperlipidemia, unspecified; F17.210 Nicotine dependence, cigarettes, uncomplicated; G89.29 Other chronic pain; M19.90 Unspecified osteoarthritis, unspecified site; Z96.641 Presence of right artificial hip joint; K21.9 Gastro-esophageal reflux disease without esophagitis; Z82.49 Family history of ischemic heart disease and other diseases of the circulatory system; Z87.11 Personal history of peptic ulcer disease; Z91.19 Patient's noncompliance with other medical treatment and regimen; Z83.3 Family history of diabetes mellitus; Z68.39 Body mass index [BMI] 39.0-39.9, adult; Z79.899 Other long term (current) drug therapy; Z71.6 Tobacco abuse counseling
CPT/HCPCS: 36415; 71275; 75625; 80048; 80053; 82550; 82553; 83735; 83880; 84484; 85025; 85610; 93005; 93458; 96374; 96375; 99152; 99153; C1769; C1892; J0360; J1644; J3490; Q9967; 97530; 97535; 99285-25

== ENCOUNTER → 2019-05-24 | Outpatient (CLI) | payer BC, OTHER ==
[2018-12-24 14:53] VITALS: BP 129/62
[~2019-05-24] MED LIST changes: +ALPR0.5T6 PO; +DOCU-109 PO; +HYDR-2761 PO; +METH750T2 PO; +SERT50TA PO
[2019-05-24 13:41] LABS: BASO # 0.1 x10^3/uL (0.0-0.2); BASO % 1 % (0-3); EOS # 0.2 x10^3/uL (0.0-0.7); EOS % 2 % (0-3); HEMATOCRIT 41.3 % (36.0-47.0); LYMPH # 1.1 x10^3/uL (1.0-4.8); LYMPH % 16 % (24-48); MEAN CORPUSCULAR HEMOGLOBIN 32 pg (25-35); MEAN CORPUSCULAR HGB CONC 34 g/dL (31-37); MEAN CORPUSCULAR VOLUME 94 fL (79-100); MONO # 0.7 x10^3/uL (0.0-1.1); MONO % 10 % (0-9); NEUT # 4.9 x10^3/uL (1.8-7.7); NEUT % 70 % (31-73); PLATELET COUNT 190 x10^3/uL (140-400); RED BLOOD COUNT 4.41 x10^6/uL (3.50-5.40); RED CELL DISTRIBUTION WIDTH 14.6 % (11.5-14.5)
[2019-05-24 14:11] LABS: ALBUMIN 3.5 g/dL (3.4-5.0); CALCIUM 9.4 mg/dL (8.5-10.1); CREATININE 0.9 mg/dL (0.6-1.0); GFR 78.7; POTASSIUM 4.4 mmol/L (3.5-5.1); TOTAL BILIRUBIN 0.5 mg/dL (0.2-1.0); TOTAL PROTEIN 6.9 g/dL (6.4-8.2)
== END | disposition home or self-care (01) ==
LOC: SURGPAT 11:52
PROVIDERS: ATTEND Neurological Surgery
DX: Z01.818 Encounter for other preprocedural examination (principal); M50.121 Cervical disc disorder at C4-C5 level with radiculopathy; M48.02 Spinal stenosis, cervical region
CPT/HCPCS: 36415; 80053; 82306; 85025; 87641

== ENCOUNTER 2019-05-30 07:13 | Observation (INO) | payer OTHER ==
--- NOTE | 2019-05-27 15:14 | HP ---
ADMIT DATE: 05/30/2019 PREOPERATIVE HISTORY AND PHYSICAL DATE OF SURGERY: 05/30/2019 HISTORY OF PRESENT ILLNESS: This is a pleasant 53-year-old who in 12/2014 underwent 2-level ACDF and did well from that. She was doing well until 03/29 when she fell at work. She says she developed some immediate severe neck pain and stiffness along with severe headache. She said that she fell and she has been having difficulty looking at the left and that it causes severe left shoulder pain. She has been in physical therapy 3 times per week during March. She has been using ice. She has been taking muscle relaxants as she tolerates. None of these are helpful significantly. She does not notice unsteadiness. She feels though her arms are weak. PAST MEDICAL HISTORY: Hypertension, chest pain, headaches, migraines, rheumatoid arthritis, swelling of limbs, ulcers. PAST SURGICAL HISTORY: ACDF C5-C6, C6-C7 in 12/2014, hip surgery. FAMILY HISTORY: Heart disease, diabetes, and hypertension. SOCIAL HISTORY: Employed at . Single. Smokes 1 pack per day for 25 years. Drinks alcohol 1-2 times per month. ALLERGIES: No known drug allergies. CURRENT MEDICATIONS: Lisinopril, clonidine, Tylenol, gabapentin, Flexeril. REVIEW OF SYSTEMS: A 12-point review of systems was obtained and is noncontributory except as mentioned above. PHYSICAL EXAMINATION: NEUROSURGERY EXAMINATION: GENERAL APPEARANCE: Alert, pleasant, in moderately severe distress because of neck and left shoulder pain. HEENT: Normocephalic and atraumatic. NECK AND THYROID: [id number]-[id number] tenderness with palpation of posterior cervical region, well-healed incision. SKIN: Warm and dry. MUSCULOSKELETAL: Cervical paraspinal muscle bulk is normal, cervical range of motion is markedly restricted, especially with turning her head to the left, normal range of motion of the right upper extremity, restricted range of motion of the left upper extremity because of pain. EXTREMITIES: No clubbing, cyanosis or edema. NEUROLOGIC: Alert and oriented x 3, normal recent and remote memory. Strength 5/5 in bilateral upper and lower extremities except the left upper extremity in which the strength is 4/5 diffusely, sensory was intact to light touch in the upper and lower extremities except for decrease in the left forearm and hand. Reflexes are present and symmetric in the upper and lower extremities except for a left biceps and triceps reflex, normal gait. IMAGING: I reviewed a cervical MRI scan. On that study, at C4-C5, there is a large new disk protrusion, which is in contact with cord, which resulted in marked bilateral foraminal narrowing, worse on the left. There is a significant spinal stenosis at this level. There are postoperative changes present at C5-C6 and C6-C7. ASSESSMENT: 1. Cervical disk disorder at C4-C5 level with radiculopathy. 2. Spinal stenosis, cervical region. 3. Cervicalgia. PLAN: I have a number of thoughts about the patient. I feel that she suffered a work-related fall. She has incapacitating severe neck and shoulder pain. She has significant cervical spinal stenosis. My recommendation is that she undergo an anterior cervical microdiscectomy and fusion at C4-C5. I spoke with her about surgery and the risks and expected postoperative course. She understands. She would like to go ahead. We will make the arrangements. FERNY OBRIEN MD DR: VERÓNICA/uzair JOB#: [id number] / [id number] DEVIN
[~2019-05-30] VITALS: Ht 165.1 cm; Wt 103.0 kg
[2019-05-30] VITALS (10 sets, daily range): BP systolic 142–176; BP diastolic 64–88
[~2019-05-30 07:13] MED LIST changes: +BACITRACIN 50,000 UNIT in IV NORMAL SALINE 1000ML BAG 1,000 ML IRR ONE; +BUPIVACAINE-EPI 0.5%-1:200000 MPF 30 ML VIAL. INJ ONE; -DOCU-109 PO; -HYDR-2761 PO; +HYDROmorphone 2 MG/ML VIAL IV PRN; +IV RINGERS,LACTATED 1000ML 1,000 ML IV SCH; +LIDOCAINE 1% PF 2 ML VIAL. ID PRN; -METH750T2 PO; +MORPHINE SULFATE 2 MG/ML VIAL. IV PRN; +ONDANSETRON PF 4 MG/2 ML VIAL. IV PRN; +PROCHLORPERAZINE 10 MG/2 ML VIAL. IV PRN; +fentaNYL PF VIAL 100 MCG/2 ML VIAL IV PRN
[2019-05-30] MEDS ORDERED: GELATIN SPONGE SIZE 12-7MM SPONGE. ONE ×2 (07:39)
[2019-05-30] MEDS ORDERED: THROMBIN TOPICAL 20,000 UNIT SPRAY.SYRN KIT TP ONE (07:39)
[2019-05-30] MEDS ORDERED: GLYCOPYRROLATE 1 MG/5 ML VIAL. ONE (08:16)
[2019-05-30] MEDS ORDERED: REMIFENTANIL 2 MG VIAL. IV ONE (08:17)
[2019-05-30] MEDS ORDERED: ROCURONIUM 50 MG/5 ML VIAL. ONE (08:17)
[2019-05-30] MEDS ORDERED: MIDAZOLAM HCL/PF 2 MG/2 ML VIAL. ONE (08:17)
[2019-05-30] MEDS ORDERED: ONDANSETRON PF 4 MG/2 ML VIAL. ONE (08:20)
[2019-05-30] MEDS ORDERED: PROPOFOL 20 ML IV ONE (08:20)
[2019-05-30] MEDS ORDERED: DESFLURANE > 120 MINUTES IH ONE (08:20)
[2019-05-30] MEDS ORDERED: PROPOFOL 50 ML IV ONE ×2 (08:20→09:40)
[2019-05-30] MEDS ORDERED: PHENYLEPHRINE 10 MG/ML VIAL. ONE (08:20)
[2019-05-30] MEDS ORDERED: DEXAMETHASONE SOD PHOS 20 MG/5 ML VIAL. ONE (08:20)
[2019-05-30] MEDS ORDERED: ceFAZolin 2GM PREMIX 2 GM/50 ML BAG IV ONE (09:00)
[2019-05-30] MEDS ORDERED: hydrALAZINE 20 MG/ML VIAL. ONE (10:24)
[2019-05-30] MEDS ORDERED: ACETAMINOPHEN 325 MG TABLET. PO PRN (10:30)
[2019-05-30] MEDS ORDERED: diphenhydrAMINE HCL 25 MG CAPSULE PO PRN (10:30)
[2019-05-30] MEDS ORDERED: NALOXONE 0.4 MG/ML VIAL. IV PRN ×2 (10:30)
[2019-05-30] MEDS ORDERED: fentaNYL PF VIAL 100 MCG/2 ML VIAL IV PRN (10:30)
[2019-05-30] MEDS ORDERED: CALCIUM CARBONATE 500 MG TAB.CHEW PO PRN (10:30)
[2019-05-30] MEDS ORDERED: 0.9 % SODIUM CHLORIDE 10 ML DISP.SYRIN. IV PRN (10:30)
[2019-05-30] MEDS ORDERED: MAGNESIUM HYDROXIDE 2,400 MG/30 ML ORAL.SUSP. PO PRN (10:30)
[2019-05-30] MEDS ORDERED: ONDANSETRON PF 4 MG/2 ML VIAL. IV PRN (10:30)
[2019-05-30] MEDS ORDERED: MAG HYDROX/ALUMINUM HYD/SIMETH 30 ML ORAL.SUSP PO PRN (10:30)
[2019-05-30] MEDS ORDERED: NEOSTIGMINE METHYLSULFATE 5 MG/5 ML SYRINGE. ONE (11:10)
[2019-05-30] MEDS: fentaNYL PF VIAL 100 MCG/2 ML VIAL IV PRN ×4 (11:40→12:28)
--- NOTE | 2019-05-30 11:40 | OP ---
DATE OF SURGERY: 05/30/2019 PREOPERATIVE DIAGNOSES: Herniated cervical disc, C4-C5 with cervical stenosis and cervical radiculopathy. POSTOPERATIVE DIAGNOSES: Herniated cervical disc, C4-C5 with cervical stenosis and cervical radiculopathy. OPERATION PERFORMED: Anterior cervical microdiscectomy, C4-C5; anterior cervical interbody fusion, C4-C5 with allograft and autograft bone; anterior cervical plate, C4-C5. The operation also included removal of hardware, C5. The operation was done with fluoroscopy, microscopy, microscopic dissection and multimodality monitoring. SURGEON: Kareem Obrien M.D. REGISTRAR MUSEUM: Erinn Isaac APRN assisted with surgery. She assisted with the microdecompression as well as interbody fusion and placement of plate and cage as well as closure. OPERATIVE INDICATIONS: The patient is a pleasant 53-year-old woman who on 12/2014 underwent a 2-level ACDF and did well from that. She then developed severe, recurrent pain after a fall at work. She was found to have a large herniated cervical disc at C4-C5 level above her previous fusion along with significant stenosis. She did try physical therapy without any benefit. Imaging studies were as outlined above. I recommended an anterior cervical discectomy and fusion at C4-5. I spoke with her about the surgery, the risks, technique and expected postoperative course and she wished me to go ahead. DESCRIPTION OF PROCEDURE: Following general endotracheal anesthesia, the patient was positioned supine on the operating room table. The anterior cervical region was then prepped and draped in standard fashion. JAMIE hose and AV impulse boots were applied for DVT prophylaxis. The microscope was draped. Fluoroscopy was draped and brought into field. Monitoring was established. Ancef 2 grams was given less than 1 hour prior to initiation of the surgery. Using fluoroscopic guidance, an incision was made directly over the C4-5 interspace and dissected down through skin and subcutaneous tissue sharply divided the platysma and then dissected around the medial aspect of the sternocleidomastoid and carotid artery sheath down the anterior cervical vertebral bodies. I removed some of the scar from the C4-5 region and visualized the plate at C5. I placed self-retaining retractors lodged in the longus colli muscle and brought in the microscope and remainder of surgery was done with the microscope using microscopic technique. I drilled the anterior spurring and then performed a discectomy after incising anterior annulus with #11 blade. The disc was largely degenerated. I scraped cartilaginous endplate and worked posteriorly, there was considerable scarring and I drilled the posterior spurring, trimmed this back with a 2 mm micro Kerrison, removed the annulus and began to remove multiple disc fragments from both left and right sides, some of which were quite large. As I worked, the region became very well decompressed. I was able to easily pass a blunt hook out through the neural foramen bilaterally. At this point, I had an excellent decompression. I measured and placed a 7 mm interbody fusion cage using the [employer] system. This was packed with allograft and autograft bone. The autograft bone, I obtained from saving the bone spurs that I drilled to create the exposure. In order to place the plate and the distraction pins, I did remove the screw in C5 as well as the locking screw from the previous system. At the end of the operation, I removed the screws. The Spinal Elements plate seemed to fit very nicely and was able to be placed without having to drill away or remove the plate at C5, C6, C7. I therefore used this plate and four 14 mm screws, which were placed. X-rays looked quite good. I irrigated with antibiotic solution. I closed the wound in layers with absorbable sutures. The platysma as a separate layer. Hemostasis was perfect. After I removed the retractors, I irrigated copiously. I was quite pleased with the surgery. KAREEM OBRIEN MD DR: VERÓNICA/uzair JOB#: [id number] / [id number] DEVIN
[2019-05-30] MEDS ORDERED: fentaNYL PF VIAL 100 MCG/2 ML VIAL ONE ×2 (11:43→11:52)
--- NOTE | 2019-05-30 12:45 | NUR ---
Patient arrived to the unit around 1230 from PACU in a bed. O2 running at 2L. BP increased and Pulse low which is patients baseline. BP medications were taken this morning per patient. She is a pack a day smoker and requests a nicoderm patch to help her quit smoking. IV in left hand running LR from PACU without any complications. Pain rating anywhere from 4-8 with her falling asleep while this nurse is talking to her. Dressing to right side of neck dry/intact with soft collar in place. Edema noted in BLE with pedal pules at +1 bilaterally. Patient states the edema is chronic and she has been that way for years. Tingling and weakness noted in BUE/hands which patient states was there prior to surgery as well. She was able to ambulate to the restroom with minimal assist upon arrival to the unit. Family at bedside. Will continue to monitor.
[2019-05-30] MEDS: ALPRAZolam 0.5 MG TABLET PO SCH (13:11)
[2019-05-30] MEDS: METHOCARBAMOL 750 MG TABLET PO PRN ×2 (13:11→20:41)
[2019-05-30] MEDS: POTASSIUM CL 20MEQ D5-0.45NACL 1,000 ML IV SCH ×2 (13:31→23:48)
[2019-05-30] MEDS: NICOTINE 21MG PATCH. TD SCH (15:30)
[2019-05-30] MEDS: ceFAZolin SODIUM IV Push 1 GM VIAL. IVP SCH (16:33)
--- NOTE | 2019-05-30 17:26 | NUR ---
Patient refused the flu shot at this time
[2019-05-30] MEDS: HYDROcodone/APAP 5/325MG 1 TAB TABLET PO PRN ×2 (18:00→23:10)
[2019-05-30] MEDS: DOCUSATE SODIUM 100 MG CAPSULE. PO SCH (20:41)
[2019-05-30] MEDS ORDERED: ATORVASTATIN CALCIUM 10 MG TABLET. PO SCH (21:00)
[2019-05-31] MEDS: ceFAZolin SODIUM IV Push 1 GM VIAL. IVP SCH ×2 (00:54→07:58)
[2019-05-31 03:00] VITALS: BP 141/70
[2019-05-31] MEDS: HYDROcodone/APAP 5/325MG 1 TAB TABLET PO PRN ×2 (04:57→11:08)
[2019-05-31 06:27] VITALS: BP 143/72
--- NOTE | 2019-05-31 06:29 | NUR ---
Slept well. Lortab 5 managing pain. Ambulates w/ walker and SBA w/o difficulty.
[2019-05-31] MEDS: ALPRAZolam 0.5 MG TABLET PO SCH (07:59)
[2019-05-31] MEDS: METHOCARBAMOL 750 MG TABLET PO PRN (07:59)
[2019-05-31] MEDS: DOCUSATE SODIUM 100 MG CAPSULE. PO SCH (07:59)
[2019-05-31] MEDS: NICOTINE 21MG PATCH. TD SCH (08:10)
--- NOTE | 2019-05-31 08:29 | NUR ---
Discussed with patient in detail in regards to her nicotine patch and smoking. She stated she would like to quit but has no desire to at this time so she plans to have a cigarette upon discharge. A new nicotine patch was not placed this AM. Smoking Cessation paperwork and tips given to her. The paperwork was discussed in detail with the patient and her sister present. They both stated understanding and the patient stated she will continue to think about stopping smoking.
[2019-05-31] MEDS ORDERED: amLODIPine BESYLATE 10 MG TABLET PO SCH (09:00)
[2019-05-31] MEDS ORDERED: ISOSORBIDE MONONITRATE ER 30 MG TAB.ER.24H PO SCH (09:00)
[2019-05-31] MEDS ORDERED: SERTRALINE 50 MG TABLET. PO SCH (09:00)
--- NOTE | 2019-05-31 09:46 | PDOC ---
PROGRESS NOTES Subjective Subjective POD #1 S/P ACDF C4-5 left arm pain improved, still some tingling in arm and hand Objective Objective Vital Signs Date Time Temp Pulse Resp B/P (MAP) Pulse Ox O2 Delivery O2 Flow Rate FiO2 05/31/19 08:04 57 156/81 05/31/19 07:31 Room Air 05/31/19 06:27 97.8 18 97 97.8 05/30/19 15:20 1.0 Intake and Output 05/31/19 07:00 Intake Total 2000 ml Output Total 825 ml Balance 1175 ml Intake Oral 600 ml IV Total 900 ml Blood Product IV Normal Saline Flush 500 ml Output Urine Total 800 ml Urine/Stool Mix 0 ml Estimated Blood Loss 25 ml # Voids 2 Physical Exam General: Alert, Oriented X3, Cooperative, No acute distress, Other (voice clear) Neuro: Normal speech, Other (HERNANDEZ) Skin: Other (incision dry, minimal swelling, collar on) Plan Plan of Care ok to dc home f/u 2 weeks Comment Review of Relevant I have reviewed the following items meg (where applicable) has been applied. Medications Current Medications Ondansetron HCl (Zofran) 4 mg PRN Q6HRS PRN IV NAUSEA/VOMITING; Start 05/30/19 at 07:00; Stop 05/30/19 at 13:22; Status DC Fentanyl Citrate (Fentanyl 2ml Vial) 25 mcg PRN Q5MIN PRN IV MILD PAIN 1-3; Start 05/30/19 at 07:00; Stop 05/30/19 at 13:22; Status DC Fentanyl Citrate (Fentanyl 2ml Vial) 50 mcg PRN Q5MIN PRN IV MODERATE TO SEVERE PAIN Last administered on 05/30/19at 12:28; Start 05/30/19 at 07:00; Stop 05/30/19 at 13:22; Status DC Morphine Sulfate (Morphine Sulfate) 1 mg PRN Q10MIN PRN IV SEVERE PAIN 7-10; Start 05/30/19 at 07:00; Stop 05/30/19 at 13:22; Status DC Ringer's Solution 1,000 ml @ 30 mls/hr Q24H IV Last administered on 05/30/19at 08:02; Start 05/30/19 at 07:00; Stop 05/30/19 at 13:22; Status DC Lidocaine HCl (Xylocaine-Mpf 1% 2ml Vial) 2 ml PRN 1X PRN ID PRIOR TO IV START; Start 05/30/19 at 07:00; Stop 05/30/19 at 13:22; Status DC Hydromorphone HCl (Dilaudid) 0.5 mg PRN Q10MIN PRN IV SEV PAIN, Second choice; Start 05/30/19 at 07:00; Stop 05/30/19 at 13:22; Status DC Prochlorperazine Edisylate (Compazine) 5 mg PACU PRN PRN IV NAUSEA, MRX1; Start 05/30/19 at 07:00; Stop 05/30/19 at 13:22; Status DC Bacitracin 63145 unit/Sodium Chloride 1,000 ml @ 1,000 mls/hr 1X ONCE IRR Las t administered on 05/30/19at 09:38; Start 05/30/19 at 06:00; Stop 05/30/19 at 06:59; Status DC Bupivacaine HCl/ Epinephrine Bitart (Sensorcain-Epi 0.5%-1:049307 Mpf) 30 ml 1X ONCE INJ Last administered on 05/30/19at 09:38; Start 05/30/19 at 06:30; Stop at 06:31; Status DC Cefazolin Sodium/ Dextrose 50 ml @ 100 mls/hr 1X PREOP PRN IV PRIOR TO PROCEDURE Last administered on 05/30/19at 09:20; Start 05/30/19 at 06:00; Stop 05/30/19 at 18:00; Status DC Gelatin (Gelfoam Size 12-7mm) 1 each STK-MED ONCE .ROUTE Last administered on 05/30/19at 09:38; Start 05/30/19 at 07:39; Stop 05/30/19 at 07:39; Status DC Thrombin 20,000 unit STK-MED ONCE TP Last administered on 05/30/19at 09:38; Start 05/30/19 at 07:39; Stop 05/30/19 at 07:39; Status DC Gelatin (Gelfoam Size 12-7mm) 1 each STK-MED ONCE .ROUTE ; Start 05/30/19 at 07:39; Stop 05/30/19 at 07:40; Status DC Glycopyrrolate (Robinul) 1 mg STK-MED ONCE .ROUTE ; Start 05/30/19 at 08:16; Stop 05/30/19 at 08:17; Status DC Rocuronium [place] (Zemuron) 50 mg STK-MED ONCE .ROUTE ; Start 05/30/19 at 08:17; Stop 05/30/19 at 08:17; Status DC Midazolam HCl (Versed) 2 mg STK-MED ONCE .ROUTE ; Start 05/30/19 at 08:17; Stop 05/30/19 at 08:17; Status DC Remifentanil HCl (Ultiva) 2 mg STK-MED ONCE IV ; Start 05/30/19 at 08:17; Stop 05/30/19 at 08:17; Status DC Desflurane (Suprane) 90 ml STK-MED ONCE IH ; Start 05/30/19 at 08:20; Stop 05/30/19 at 08:20; Status DC Dexamethasone Sodium Phosphate (Decadron) 20 mg STK-MED ONCE .ROUTE ; Start 05/30/19 at 08:20; Stop 05/30/19 at 08:20; Status DC Propofol 20 ml @ As Directed STK-MED ONCE IV ; Start 05/30/19 at 08:20; Stop 05/30/19 at 08:20; Status DC Propofol 50 ml @ As Directed STK-MED ONCE IV ; Start 05/30/19 at 08:20; Stop 05/30/19 at 08:20; Status DC Ondansetron HCl (Zofran) 4 mg STK-MED ONCE .ROUTE ; Start 05/30/19 at 08:20; Stop 05/30/19 at 08:20; Status DC Phenylephrine HCl (Yoni-Synephrine Inj) 10 mg STK-MED ONCE .ROUTE ; Start 05/30/19 at 08:20; Stop 05/30/19 at 08:20; Status DC Propofol 50 ml @ As Directed STK-MED ONCE IV ; Start 05/30/19 at 09:40; Stop 05/30/19 at 09:41; Status DC Hydralazine HCl (Apresoline Inj) 20 mg STK-MED ONCE .ROUTE ; Start 05/30/19 at 10:24; Stop 05/30/19 at 10:24; Status DC Alprazolam (Xanax) 0.5 mg DAILY PO Last administered on 05/31/19 07:59; Start 05/30/19 at 12:00 Amlodipine Besylate (Norvasc) 10 mg DAILY PO Last administered on 05/31/19 08:04; Start 05/31/19 at 09:00 Atorvastatin Calcium (Lipitor) 10 mg QHS PO Last administered on 05/30/19at 20:41; Start 05/30/19 at 21:00 Hydralazine HCl (Apresoline) 50 mg TID PO Last administered on 05/31/19at 08:02; Start 05/30/19 at 15:00 Isosorbide Mononitrate (Imdur) 60 mg DAILY PO Last administered on 05/31/19 08:03; Start 05/31/19 at 09:00 Sertraline HCl (Zoloft) 50 mg DAILY PO Last administered on 05/31/19 07:59; Start 05/31/19 at 09:00 Fentanyl Citrate (Fentanyl 2ml Vial) 50 mcg PRN Q2HR PRN IV PAIN Last ad ministered on 05/30/19at 13:15; Start 05/30/19 at 10:30 Acetaminophen (Tylenol) 650 mg PRN Q6HRS PRN PO HEADACHE / TEMP; Start 05/30/19 at 10:30 Al Hydroxide/Mg Hydroxide (Mylanta Plus Xs) 30 ml PRN Q3HRS PRN PO HEARTBURN / GAS; Start 05/30/19 at 10:30 Calcium Carbonate/ Glycine (Tums) 500 mg PRN Q3HRS PRN PO INDIGESTION; Start 05/30/19 at 10:30 Diphenhydramine HCl (Benadryl) 25 mg PRN Q6HRS PRN PO ITCHING; Start 05/30/19 at 10:30 Naloxone HCl (Narcan) 0.1 mg PRN Q2MIN PRN IV ADMIN; Start 05/30/19 at 10:30 Sodium Chloride (Normal Saline Flush) 3 ml QSHIFT PRN IV AFTER MEDS AND BLOOD DRAWS; Start 05/30/19 at 10:30 Potassium Chloride/Dextrose/ Sod Cl 1,000 ml @ 75 mls/hr [id number] IV Last administered on 05/30/19at 13:31; Start 05/30/19 at 10:28; Stop 05/31/19 at 06:12; Status DC Naloxone HCl (Narcan) 0.4 mg PRN Q2MIN PRN IV SEE INSTRUCTIONS; Start 05/30/19 at 10:30 Acetaminophen/ Hydrocodone Bitart (Lortab 5/325) 1 tab PRN Q4HRS PRN PO MILD PAIN 1-3 Last administered on 05/31/19at 04:57; Start 05/30/19 at 10:30 Acetaminophen/ Hydrocodone Bitart (Lortab 5/325) 2 tab PRN Q4HRS PRN PO MODERATE PAIN, SEVERE PAIN Last administered on 05/30/19at 18:00; Start 05/30/19 at 10:30 Methocarbamol (Robaxin) 750 mg PRN TID PRN PO MUSCLE SPASMS Last administered on 05/31/19at 07:59; Start 05/30/19 at 10:30 Docusate Sodium (Colace) 100 mg BID PO Last administered on 05/31/19at 07:59; Start 05/30/19 at 21:00 Magnesium Hydroxide (Milk Of Magnesia) 2,400 mg PRN Q12HR PRN PO CONSTIPATION; Start 05/30/19 at 10:30 Ondansetron HCl (Zofran) 4 mg PRN Q6HRS PRN IV NAUESA, 1ST CHOICE; Start 05/30/19 at 10:30 Cefazolin Sodium (Ancef) 1 gm Q8H IVP Last administered on 05/31/19at 07:58; Start 05/30/19 at 17:00; Stop 05/31/19 at 09:01; Status DC Neostigmine Methylsulfate (Neostigmine Methylsulfate) 5 mg STK-MED ONCE .ROUTE ; Start 05/30/19 at 11:10; Stop 05/30/19 at 11:11; Status DC Fentanyl Citrate (Fentanyl 2ml Vial) 100 mcg STK-MED ONCE .ROUTE ; Start 05/30/19 at 11:43; Stop 05/30/19 at 11:43; Status DC Fentanyl Citrate (Fentanyl 2ml Vial) 100 mcg STK-MED ONCE .ROUTE ; Start 05/30/19 at 11:52; Stop 05/30/19 at 11:52; Status DC Nicotine (Nicoderm Cq 21mg) 1 patch DAILY TD Last administered on 9/30/19at 15:30; Start 05/30/19 at 14:30 Active Scripts Active Isosorbide Mononitrate Er (Isosorbide Mononitrate) 30 Mg Tab.er.24h 60 Mg PO DAILY MDD 1 Amlodipine Besylate 10 Mg Tablet 10 Mg PO DAILY 30 Days Hydralazine Hcl 50 Mg Tablet 50 Mg PO TID 30 Days Atorvastatin Calcium 10 Mg Tablet 10 Mg PO QHS 30 Days Reported Zoloft (Sertraline Hcl) 50 Mg Tablet 1 Tab PO DAILY Alprazolam 0.5 Mg Tablet 1 Tab PO DAILY Vitals/I & O Vital Sign - Last 24 Hours 05/30/19 05/30/19 05/30/19 05/30/19 11:30 11:30 11:40 11:45 Temp 97.9 97.9 Pulse 70 62 Resp 16 16 20 B/P (MAP) 179/77 187/83 Pulse Ox 100 98 100 O2 Delivery Mask Simple Mask Simple Mask Simple Mask O2 Flow Rate 8 8 8.0 8 05/30/19 05/30/19 05/30/19 05/30/19 11:45 11:55 12:00 12:15 Temp 97.9 97.9 Pulse 60 58 Resp 16 16 18 16 B/P (MAP) 185/81 173/78 Pulse Ox 98 97 93 98 O2 Delivery Simple Mask Simple Mask Room Air Nasal Cannula O2 Flow Rate 8.0 8.0 2 05/30/19 05/30/19 05/30/19 05/30/19 12:28 12:28 12:30 12:45 Temp 97.3 97.3 Pulse 57 57 Resp 16 16 B/P (MAP) 173/82 (112) 171/80 (110) Pulse Ox 96 100 O2 Delivery Nasal Cannula Nasal Cannula Nasal Cannula O2 Flow Rate 2.0 2 2.0 05/30/19 05/30/19 05/30/19 05/30/19 12:58 13:00 13:10 13:15 Pulse 61 62 B/P (MAP) 176/88 (117) 169/88 (115) Pulse Ox 96 100 O2 Delivery Nasal Cannula Nasal Cannula Nasal Cannula O2 Flow Rate 2.0 2.0 3.0 05/30/19 05/30/19 05/30/19 05/30/19 13:15 13:45 13:51 14:16 Pulse 58 56 B/P (MAP) 159/81 (107) 152/76 (101) Pulse Ox 96 100 100 O2 Delivery Nasal Cannula Nasal Cannula Nasal Cannula Nasal Cannula O2 Flow Rate 3.0 1.0 1.0 1.0 05/30/19 05/30/19 05/30/19 05/30/19 15:20 15:32 16:15 18:00 Pulse 56 58 56 B/P (MAP) 156/78 (104) 152/79 164/82 (109) Pulse Ox 100 98 O2 Delivery Nasal Cannula Nasal Cannula Room Air O2 Flow Rate 1.0 05/30/19 05/30/19 05/30/19 05/30/19 18:04 19:00 20:41 23:00 Temp 97.8 98.0 97.8 98.0 Pulse 61 61 59 Resp 16 20 16 B/P (MAP) 147/66 (93) 147/66 142/64 (90) Pulse Ox 96 92 O2 Delivery Room Air Room Air Room Air 05/30/19 05/31/19 05/31/19 05/31/19 23:10 00:10 03:00 04:57 Temp 98.0 98.0 Pulse 59 Resp 16 16 24 24 B/P (MAP) 141/70 (93) Pulse Ox 92 92 O2 Delivery Room Air Room Air 05/31/19 05/31/19 05/31/19 05/31/19 06:10 06:27 07:31 08:02 Temp 97.8 97.8 Pulse 59 57 Resp 20 18 B/P (MAP) 143/72 (95) 156/81 Pulse Ox 97 O2 Delivery Room Air Room Air 05/31/19 05/31/19 08:03 08:04 Pulse 57 57 B/P (MAP) 156/81 156/81 Intake and Output 05/30/19 05/30/19 05/31/19 15:00 23:00 07:00 Intake Total 900 ml 1100 ml Output Total 25 ml 800 ml 0 ml Balance 875 ml -800 ml 1100 ml CELINA STEPHENSON APRN May 31, 2019 09:46
[2019-05-31] MEDS ORDERED: METH750T2 PO (10:00)
[2019-05-31] MEDS ORDERED: HYDR-2761 PO (10:00)
[2019-05-31] MEDS ORDERED: DOCU-109 PO (10:00)
--- NOTE | 2019-05-31 10:02 | DISCH ---
DISCHARGE INSTRUCTIONS Condition on Discharge Condition on Discharge: Stable Activity After Discharge Activity Instructions for Disc: Activity as tolerated, Avoid exertion, Prog ressive ambulation Other activity instructions: Wear the soft collar for 1 week or until released by your doctor. Bathing Instructions: Shower-keep dressing dry, No Tub Bath until see Lifting Instructions after Dis: No heavy lifting, No pulling or pushing, Do not lift >10 pounds Exercise Instruction after Dis: Walk 30 min, 3 x per week, Exercise per therapy, Progress as tolerated Driving Instructions after Dis: No driving for 2 weeks Weight Bearing Status after Di: No restrictions Diet after Discharge Diet after Discharge: Cardiac, No Added Salt, Regular Diet Texture: Regular Swallowing Supervision: None needed Wound Incision Care Wound/Incision Care: Ice to area for comfort, Keep wound/cast CDI, Change dressing, May get incision wet Other wound/incision instructi: May shower after 48 hours, remove dressing & replace if desired. Wound Care Equipment: Dressings Checks after Discharge Checks after discharge: Check blood press - daily, Weigh Yourself Daily Contacting the [facility]RT[facility] after DC Call your doctor for: Concerns you may have Follow-Up Follow Up With: Dr Obrien's nurse in 10-14 days [phone] Treatment/Equipment after DC Adaptive Equipment Issued: None, Front wheeled walker Comment: Wear a 21mg Nicotine patch to help quit smoking FERNY OBRIEN MD May 31, 2019 10:02
[2019-05-31 11:00] VITALS: BP 152/78
--- NOTE | 2019-05-31 11:20 | NUR ---
Patient left the building around 1110 in a wheelchair with her sister. Discharge education was completed by this nurse, therapy, and Dr Katty Plasencia. IV discontinued without any complications prior to discharge. Dressing changed to anterior neck with no concerns noted. Patient education was completed not only with the patient but her sister and brother. No concerns noted upon discharge.
--- NOTE | 2019-05-31 15:07 | PATHOLOGY ---
[facility] Accession Number: [id number] . 01 Material submitted: . vertebral column - CERVICAL DISC . 01 Clinical history: . Cervical stenosis, radiculopathy, herniated disc . 02 Diagnosis: Segments of cartilaginous tissue and minute segments of bone, cervical disc: - Degenerative changes of cartilaginous tissue. 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 02 Comment: There is no evidence of an acute inflammatory process or malignancy. 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 02 Electronically signed: . Franky Encinas MD, Pathologist NPI- [id number] . 01 Gross description: . The specimen is received in formalin, labeled "Jorge, Petrona, cervical disc" and consists of multiple fragments of white-pink tissue and bone measuring 3.5 x 3.0 x 0.5 cm in aggregate. A international account representative portion is submitted in A1 following decalcification. (SDY; 05/30/2019) SYU/SYU 05/30/2019 1705 Local . 02 Pathologist provided ICD-10: M50.30 . 02 CPT . 426548, 019015 Specimen Comment: A courtesy copy of this report has been sent to Specimen Comment: [phone], . Specimen Comment: Report sent to / DR HOLLINS Specimen Comment: Report sent to Performed at: 01 [facility] [address], [place] [id number] MD Keron Noel MD Phone: [phone] Performed at: 02 [facility] [address] [place], [place] [id number] MD Franky Encinas MD Phone: [phone]
== END 2019-05-31 11:10 | disposition home or self-care (01) ==
LOC: SURG 07:13 → 4 SOUTHEST 10:28
PROVIDERS: ADMIT Neurological Surgery; ATTEND Neurological Surgery
DX: M48.02 Spinal stenosis, cervical region (principal); M50.121 Cervical disc disorder at C4-C5 level with radiculopathy; I10 Essential (primary) hypertension; M06.9 Rheumatoid arthritis, unspecified; G43.909 Migraine, unspecified, not intractable, without status migrainosus; Z98.1 Arthrodesis status; Z87.891 Personal history of nicotine dependence; Z83.3 Family history of diabetes mellitus; Z82.49 Family history of ischemic heart disease and other diseases of the circulatory system
CPT/HCPCS: 20680; 20930; 20936; 22551; 76000; 88304; 88311; 96374; 96375; 96376; 97116; 97162; 97530; 99406; A7015; C1713; G0378; G0379; J0360; J0690; J0696; J1100; J2250; J2405; J2704; J2710; J3010; J3490; J7030

== ENCOUNTER → 2020-03-26 | Outpatient (CLI) | payer BC ==
[~2020-03-26] MED LIST changes: -BACITRACIN 50,000 UNIT in IV NORMAL SALINE 1000ML BAG 1,000 ML IRR ONE; -BUPIVACAINE-EPI 0.5%-1:200000 MPF 30 ML VIAL. INJ ONE; +DOCU-109 PO; +HYDR-2761 PO; +HYDR-3165 PO; -HYDROmorphone 2 MG/ML VIAL IV PRN; -IV RINGERS,LACTATED 1000ML 1,000 ML IV SCH; -LIDOCAINE 1% PF 2 ML VIAL. ID PRN; +METH750T2 PO; -MORPHINE SULFATE 2 MG/ML VIAL. IV PRN; +MULT-445 PO; -MULT1TAB52 PO; -ONDANSETRON PF 4 MG/2 ML VIAL. IV PRN; -PROCHLORPERAZINE 10 MG/2 ML VIAL. IV PRN; -WARF-78 PO; +WARF5TAB2 PO; -fentaNYL PF VIAL 100 MCG/2 ML VIAL IV PRN
--- NOTE | 2020-03-26 10:45 | CARD ---
MR#: [id number] Date of Study: 03/26/2020 Ordering Physician: ALFREDA RUBIO, Referring Physician: ALFREDA RUBIO Tech: Gypsy Carrillo RDCS APPROVED REPORT EXAM: Two-dimensional and M-mode echocardiogram with Doppler and color Doppler. Other Information Quality : Good INDICATION Congestive Heart Failure 2D DIMENSIONS RVDd3.8 (2.9-3.5cm)Left Atrium(2D)4.1 (1.6-4.0cm) IVSd1.1 (0.7-1.1cm)Aortic Root(2D)2.7 (2.0-3.7cm) LVDd4.9 (3.9-5.9cm)LVOT Diameter2.0 (1.8-2.4cm) PWd1.1 (0.7-1.1cm)LVDs3.2 (2.5-4.0cm) FS (%) 35.9 %SV74.9 ml LVEF(%)65.3 (>50%) Aortic Valve AoV Peak Lj.170.4cm/sAoV VTI35.6cm AO Peak GR.11.6mmHgLVOT Peak Lj.135.1cm/s AO Mean GR.7mmHgAVA (VMAX)2.44cm2 AVRIL (VTI)2.60cm2 Mitral Valve MV E Nfxfoxpt79.9cm/sMV DECEL ELSQ383vs MV A Rnpylynz31.8cm/sE/A Ratio1.1 Tricuspid Valve TR P. Eprjlthr258vj/sRAP IBZBOEQN8lwQq TR Peak Gr.60xjNjDDUH22ybBs Pulmonary Vein S1 Vtkddxcv78.7cm/sD2 Doqepimz80.2cm/s LEFT VENTRICLE The left ventricle is normal size. There is normal left ventricular wall thickness. The left ventricu lar systolic function is normal and the ejection fraction is within normal range. The Ejection Fracti on is 55-60%. There is normal LV segmental wall motion. Transmitral Doppler flow pattern is Grade I-a bnormal relaxation pattern. RIGHT VENTRICLE The right ventricle is normal size. The right ventricular systolic function is normal. ATRIA The left atrium is mildly dilated. The right atrium size is normal. The interatrial septum is intact with no evidence for an atrial septal defect or patent foramen ovale as noted on 2-D or Doppler imagi ng. AORTIC VALVE The aortic valve is normal in structure and function. Doppler and Color Flow revealed no significant aortic regurgitation. There is no significant aortic valvular stenosis. MITRAL VALVE The mitral valve is calcified but opens well. Mitral annular calcification is mild. There is no evide nce of mitral valve prolapse. There is no mitral valve stenosis. Doppler and Color-flow revealed trac e mitral regurgitation. TRICUSPID VALVE The tricuspid valve is normal in structure and function. Doppler and Color Flow revealed trace to mil d tricuspid regurgitation.There is moderate pulmonary hypertension. The PA pressure was estimated at 56 mmHg. There is no tricuspid valve stenosis. PULMONIC VALVE The pulmonic valve is not well visualized. Doppler and Color Flow revealed trace to mild pulmonic umair vular regurgitation. There is no pulmonic valvular stenosis. GREAT VESSELS The aortic root is normal in size. The ascending aorta is normal in size. The IVC is dilated and maribell apses >50% with inspiration. PERICARDIAL EFFUSION There is no evidence of significant pericardial effusion. Critical Notification Critical Value: No <Conclusion> The left ventricular systolic function is normal and the ejection fraction is within normal range. Th e Ejection Fraction is 55-60%. There is normal LV segmental wall motion. Doppler and Color Flow revealed trace to mild tricuspid regurgitation.There is moderate pulmonary hyp ertension. The PA pressure was estimated at 56 mmHg. Signed by : Christiano Snider, Electronically Approved : 03/26/2020 10:45:12
== END | disposition home or self-care (01) ==
LOC: ECHO 08:03
PROVIDERS: ATTEND Internal Medicine Cardiovascular Disease
DX: I08.8 Other rheumatic multiple valve diseases (principal); I50.32 Chronic diastolic (congestive) heart failure; I27.20 Pulmonary hypertension, unspecified
CPT/HCPCS: 93306

== ENCOUNTER 2020-03-27 10:32 | Emergency (ER) | payer BC ==
[~2020-03-27] VITALS: Ht 165.1 cm; Wt 125.0 kg
[~2020-03-27 10:32] MED LIST changes: -HYDR-3165 PO
--- NOTE | 2020-03-27 11:40 | PHYS DOC ---
Past Medical History Past Medical History: Hypertension Past Surgical History: Hip Replacement, Other Additional Past Surgical Histo: DISC REPLACEMENT,CARDIAC CATH Smoking Status: Current Every Day Smoker Alcohol Use: None Drug Use: None General Adult EDM: Chief Complaint: LOWER EXTREMITY SWELLING HPI: HPI: Patient is a 54 year old female who presents with a 1 day history of atraumatic left heel and foot pain. Patient evidently had a fall in July and this was her first week back at work and near the end of her shift she started having extreme pain in the left foot and ankle. Pain is nonradiating and severe in nature and worse with ambulation and palpation. Patient denies any fever or cough. Patient says she is got chronic swelling in her legs is unchanged. Patient says she is chronically short of breath as well that is unchanged. No new trauma Review of Systems: Review of Systems: Constitutional: Denies fever or chills. [] Eyes: Denies change in visual acuity. [] HENT: Denies nasal congestion or sore throat. [] Respiratory: Denies cough complains of chronic shortness of breath Cardiovascular: Denies chest pain but complains of chronic edema to the legs GI: Denies abdominal pain, nausea, vomiting, bloody stools or diarrhea. [] : Denies dysuria. [] Musculoskeletal: Denies back pain complains of left ankle pain Integument: Denies rash. [] Neurologic: Denies headache, focal weakness or sensory changes. [] Endocrine: Denies polyuria or polydipsia. [] Lymphatic: Denies swollen glands. [] Psychiatric: Denies depression or anxiety. [] Heart Score: Risk Factors: Risk Factors: DM, Current or recent (<one month) smoker, HTN, HLP, family history of CAD, obesity. Risk Scores: Score 0 - 3: 2.5% MACE over next 6 weeks - Discharge Home Score 4 - 6: 20.3% MACE over next 6 weeks - Admit for Clinical Observation Score 7 - 10: 72.7% MACE over next 6 weeks - Early Invasive Strategies Allergies: Allergies: Allergies Coded Allergies Type Severity Reaction Last Updated Verified No Known Drug Allergies 05/30/19 No Physical Exam: PE: Constitutional: Well developed, well nourished, no acute distress, non-toxic appearance. [] HENT: Normocephalic, atraumatic, bilateral external ears normal, no trismus nose normal. [] Eyes: PERRLA, EOMI, conjunctiva normal, no discharge. [] Neck: Normal range of motion, no tenderness, supple, no stridor. [] Cardiovascular:Heart rate regular rhythm, peripheral pulses intact, cap refill brisk Lungs & Thorax: No respiratory distress Abdomen: Bowel sounds normal, soft, no tenderness, no masses, no pulsatile masses. [] Skin: Warm, dry, no erythema, no rash. [] Back: No tenderness, no CVA tenderness. [] Extremities: Chronic 2+ bilateral lower extremity edema. Moderate tenderness to palpation left posterior foot and ankle. Normal Xiao test. No erythema, warmth, mild swelling that is similar to the right side. Neurovascular intact distally. Peripheral pulses intact Neurologic: Alert and oriented X 3, normal motor function, normal sensory function, no focal deficits noted. [] Psychologic: Affect normal, judgement normal, mood normal. [] Current Patient Data: Vital Signs: Vital Signs Date Time Temp Pulse Resp B/P (MAP) Pulse Ox O2 Delivery O2 Flow Rate FiO2 03/27/20 14:00 78 18 179/88 (118) 98 Room Air 03/27/20 12:35 Room Air 03/27/20 11:40 98.0 67 26 182/83 (116) 97 Room Air 98.0 EKG: EKG: [] Radiology/Procedures: Radiology/Procedures: [][facility] [address] [place] [address] IMAGING REPORT Signed PATIENT: LEXY JON ACCOUNT: [id number] : 1965 LOCATION: ER AGE: 54 SEX: F EXAM STATUS: REG ER ORD. PHYSICIAN: JANES PETE MD REASON: PAIN, STARTED HURTING LAST NIGHT AT WORK, NO KNOWN INJURY PROCEDURE: ANKLE LEFT 3V Left foot 3 views, left ankle 3 views. HISTORY: Pain, no known injury Left foot 3 views were taken the left foot. There is not evidence of an acute fracture or acute osseous abnormality. There is diffuse diffuse soft tissue swelling. There is mild degenerative change with spurring at the tarsal joints. Left ankle 3 views were taken of the left ankle there is irregularity at the tip of the medial malleolus from a nondisplaced fracture or old ununited injury. I do not have an old study for comparison. There is also a sesamoid at the tip of the medial malleolus. No other evidence of an acute ankle fracture is noted. There is diffuse soft tissue swelling. There is spurring on the calcaneus. IMPRESSION: 1. Diffuse soft tissue swelling. 2. No fracture or acute osseous abnormality of the left foot. 3. Irregularity at the tip of the medial malleolus which could be a acute nondisplaced fracture or an old ununited injury. 4. No other acute fracture or osseous abnormality noted. Electronically signed by: Milton Bailey MD (03/27/2020 12:04 PM) [id number] DICTATED and SIGNED BY: MILTON BAILEY MD DATE: 03/27/20 1204 [facility] [address] [place] [address] IMAGING REPORT Signed PATIENT: LEXY JON ACCOUNT: [id number] : 1965 LOCATION: ER AGE: 54 SEX: F EXAM STATUS: REG ER ORD. PHYSICIAN: JANES PETE MD REASON: PAIN PROCEDURE: VENOUS LOWER EXTREMITY LEFT Left lower extremity venous real time grayscale, color and spectral duplex ultrasound was performed. History: Reason: PAIN / Spl. Instructions: / History: Comparison: None The left common femoral, femoral, and popliteal veins demonstrate anechoic lumina, full compressibility, augmentable waveforms, and cephalad color Doppler flow. The posterior tibial are also patent. Normal flow is also seen in the cephalad portion of the saphenous vein. Impression: No evidence of DVT in the left lower extremity. Electronically signed by: Brice Emanuel MD (03/27/2020 12:19 PM) [id number] DICTATED and SIGNED BY: BRICE EMANUEL MD DATE: 03/27/20 1219 Course & Med Decision Making: Course & Med Decision Making Pertinent Labs and Imaging studies reviewed. (See chart for details) [] 54-year-old female presents with left foot and ankle pain. No erythema or warmth to suggest septic arthritis. There is a possible avulsion to the medial malleolus. Patient has been ordered a walker boot. Patient stable for discharge outpatient follow-up. With a orthopedic surgeon. Marco Disclaimer: Marco Disclaimer: This electronic medical record was generated, in whole or in part, using a voice recognition dictation system. Departure Departure Impression: Primary Impression: Fracture of medial malleolus, left, closed Additional Impression: Left leg pain Disposition: 01 HOME, SELF-CARE Condition: STABLE Referrals: UNKNOWN PCP NAME (PCP) IDA ROACH II, MD 2-3 DAYS Patient Instructions: Ankle Fracture Additional Instructions: EMERGENCY DEPARTMENT GENERAL DISCHARGE INSTRUCTIONS THANK YOU for coming to [facility] Emergency Department (ED) today and trusting us with your care. We trust that you had a positive experience in our Emergency Department. If you wish to speak to the department Management you can contact the delivery department supervisor at . YOUR FOLLOW UP INSTRUCTIONS ARE FOLLOWS: Do you have a private doctor? If you do not have a private doctor, please ask for a resource list of physicians or clinics that may be able to assist you with follow up care. The Emergency Physician has interpreted your x-rays. The X-ray specialist will also review them. If there is a change in the findings you will be notified in 48 hours when at all possible. A lab test or lab culture may have been done, your results will be reviewed and you will be notified if you need a change in treatment. ADDITIONAL INSTRUCTIONS AND INFORMATION Your care today has been supervised by a physician who is specially trained in emergency care. Many problems require more than one evaluation for a complete diagnosis and treatment. We recommend that you schedule your follow up appointment as recommended to ensure complete treatment of your illness or injury. If you are unable to obtain follow up care and continue to have a problem, or if your condition worsens we recommend that you return to the ED. We are not able to safely determine your condition over the phone nor are we able to give sound medical advice over the phone. For these safety reasons, if you call for medical advice we will ask you to come to the ED for further evaluation If you have any questions regarding these discharge instructions please call the ED at . SAFETY INFORMATION In the interest of safety, wellness, and injury prevention; we encourage you to wear your seatbelt, if you smoke; quit smoking, and we encourage your family to use protective helmet for bicycling and other sporting events that present an increased risk for head injury. IF YOUR SYMPTOMS WORSEN OR NEW SYMPTOMS DEVELOP, OR YOU HAVE CONCERNS ABOUT YOUR CONDITION; OR IF YOUR CONDITION WORSENS WHILE YOU ARE WAITING FOR YOUR FOLLOW UP A PPOINTMENT; EITHER CONTACT YOUR PRIMARY CARE DOCTOR, THE PHYSICIAN WHOSE NAME AND NUMBER YOU WERE GIVEN, OR RETURN TO THE ED IMMEDIATELY. Scripts Hydrocodone/Apap 7.5-325 (NORCO 7.5-325 TABLET) 1 Each Tablet 1 TAB PO PRN Q6HRS PRN for PAIN for 4 Days, #15 TAB 0 Refills Prov: JANES PETE MD 03/27/20 Justicifation of Admission Dx: Justifications for Admission: Justification of Admission Dx: N/A JANES PETE MD Mar 27, 2020 11:39
[2020-03-27] MEDS ORDERED: HYDROcodone/APAP 7.5/325MG 1 TAB TABLET PO ONE (11:45)
[2020-03-27] MEDS ORDERED: ONDANSETRON ODT 4 MG TAB.RAPDIS. PO ONE (11:45)
--- NOTE | 2020-03-27 12:07 | RAD ---
Left foot 3 views, left ankle 3 views. HISTORY: Pain, no known injury Left foot 3 views were taken the left foot. There is not evidence of an acute fracture or acute osseous abnormality. There is diffuse diffuse soft tissue swelling. There is mild degenerative change with spurring at the tarsal joints. Left ankle 3 views were taken of the left ankle there is irregularity at the tip of the medial malleolus from a nondisplaced fracture or old ununited injury. I do not have an old study for comparison. There is also a sesamoid at the tip of the medial malleolus. No other evidence of an acute ankle fracture is noted. There is diffuse soft tissue swelling. There is spurring on the calcaneus. IMPRESSION: 1. Diffuse soft tissue swelling. 2. No fracture or acute osseous abnormality of the left foot. 3. Irregularity at the tip of the medial malleolus which could be a acute nondisplaced fracture or an old ununited injury. 4. No other acute fracture or osseous abnormality noted. Electronically signed by: Milton Bailey MD (03/27/2020 12:04 PM) [id number]
--- NOTE | 2020-03-27 12:23 | RAD ---
Left lower extremity venous real time grayscale, color and spectral duplex ultrasound was performed. History: Reason: PAIN / Spl. Instructions: / History: Comparison: None The left common femoral, femoral, and popliteal veins demonstrate anechoic lumina, full compressibility, augmentable waveforms, and cephalad color Doppler flow. The posterior tibial are also patent. Normal flow is also seen in the cephalad portion of the saphenous vein. Impression: No evidence of DVT in the left lower extremity. Electronically signed by: Brice Emanuel MD (03/27/2020 12:19 PM) [id number]
[2020-03-27] MEDS ORDERED: HYDR-3165 PO (13:01)
[2020-03-27 14:00] VITALS: BP 179/88
== END 2020-03-27 14:26 | disposition home or self-care (01) ==
LOC: ER 10:32
DX: S82.52XA Displaced fracture of medial malleolus of left tibia, initial encounter for closed fracture (principal); M79.672 Pain in left foot; R60.0 Localized edema; R06.02 Shortness of breath; I10 Essential (primary) hypertension; F17.200 Nicotine dependence, unspecified, uncomplicated; Z98.890 Other specified postprocedural states; W18.39XA Other fall on same level, initial encounter; Y93.89 Activity, other specified; Y92.89 Other specified places as the place of occurrence of the external cause; Y99.8 Other external cause status
CPT/HCPCS: 73610; 73630; 93971; 99284

== ENCOUNTER → 2020-05-10 | Outpatient (CLI) | payer BC ==
[~2020-05-10] MED LIST changes: +HYDR-3165 PO
--- NOTE | 2020-05-10 12:57 | KCIC ---
Study: MRI left ankle without contrast INDICATION: Left ankle pain. Chronic swelling. COMPARISON: Left ankle radiographs 04/10/2020. TECHNIQUE: Multiplanar MR imaging of the left ankle performed without the use of intravenous or intra-articular contrast. FINDINGS: Bones/cartilage: Achilles insertion enthesophyte formation and a small plantar calcaneal spur. Prominent os trigonum which is slightly edematous as is the adjacent posterior talar body. Calcaneal edema and cystic change along the angle of Gissane. Trace talar edema at this location. Plantar/medial flexion of the distal talus. Scattered midfoot arthrosis which is relatively mild. Chronic osseous fragments at the tip of the medial malleolus. No full-thickness chondral defect seen at the ankle. Ligaments: Sequela of prior injury involving the anterior/inferior tibiofibular ligament. The PITFL is intact. The ATFL is intact. The CFL appears intact but is deformed due to interposition between a valgus deviated calcaneus and somewhat low-lying fibula. The PTFL is heterogeneous but intact. No findings of acute injury to the deep or superficial deltoid ligaments. The spring ligament is thinned but appears intact. Musculotendinous: Intact and normally located peroneal tendons. No tear or advanced tendinosis of the flexor, extensor and Achilles tendons. The PTT appears to exhibit an early bifurcation occurring proximal to the navicular insertion. Mild abductor digiti minimi fatty infiltration. Sinus Tarsi: Mostly absent expected sinus tarsi fat. Tarsal tunnel: No space-occupying mass. Plantar fascia: No findings of active plantar fasciitis. Miscellaneous: Diffuse subcutaneous edema throughout the foot and ankle and extending beyond the obtained mizbu-ab-olus. No large joint effusion. IMPRESSION: 1. 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 2. Noting the absence of weightbearing, plantar/medial deviation of the talus and hindfoot valgus. Additionally there are marrow signal changes adjacent to the sinus tarsi which are non-specific but can be seen with lateral hindfoot impingement, subtalar instability and/or reactive to the abnormal sinus tarsi. No full-thickness disruption of the spring ligament or PTT tear/advanced tendinosis to account for the deviation of the talus. 3. Prominent os trigonum with marrow edema. Recommend correlation for symptoms of os trigonum syndrome. 4. Marked extent of generalized subcutaneous edema. 5. Additional chronic observations as detailed in the body the report. Electronically signed by: MARY AGUILAR MD (05/10/2020 12:54 PM) [id number]
== END | disposition home or self-care (01) ==
LOC: KCIC MRI 10:44
PROVIDERS: ATTEND Orthopaedic Surgery Sports Medicine
DX: M19.072 Primary osteoarthritis, left ankle and foot (principal); M77.32 Calcaneal spur, left foot
CPT/HCPCS: 73721

== ENCOUNTER → 2020-07-03 | Outpatient (CLI) | payer BC ==
[~2020-07-03] MED LIST changes: +AMLO-187 PO; -AMLO10TA8 PO
--- NOTE | 2020-07-03 13:07 | KCIC ---
LUMBAR SPINE WO CONTRAST History: Reason: RADICULOPATHY/BACK PAIN / Spl. Instructions: Lumbar epidural, no surgical hx. / History: Alternating, worsening BLE pain in recent months. Technique: Multiplanar, multi sequential MR imaging was performed of the lumbar spine. Comparison: March 08, 2015 Findings: New grade 1 anterolisthesis L4 on L5. Normal vertebral body height. No fracture. Conus terminates at the normal location. No evidence of nerve root clumping. Left renal cyst. L1-L2: No canal or neuroforaminal narrowing. Mild facet arthropathy. L2-L3: No canal or neuroforaminal narrowing. Mild facet arthropathy. L3-L4: Small disc bulge. Moderate facet arthropathy. Mild left subacute recess narrowing. No canal narrowing. Right foraminal small disc protrusion with annular fissure. Mild right neuroforaminal narrowing. No left neuroforaminal narrowing. L4-L5: Broad-based disc bulge. Advanced facet arthropathy. Grade 1 anterolisthesis. Mild to moderate canal narrowing. Severe subarticular recess narrowing. Abutment of descending L5 nerve roots. Mild bilateral neuroforaminal narrowing. L5-S1: Small disc bulge. Advanced facet arthropathy. No canal narrowing. Minimal neuroforaminal narrowing. The degenerative findings are progressed compared to 2015. Impression: 1. Multilevel lumbar spondylosis most prominent L4-L5, progressed compared to 2014. 2. Grade 1 anterolisthesis L4 on L5 due to advanced facet arthropathy contributing to mild to moderate canal narrowing with severe subarticular recess narrowing. Correlate for radiculopathy. Electronically signed by: Joon Montana DO (07/03/2020 1:04 PM) [facility]
== END ==
LOC: KCIC MRI 10:39
PROVIDERS: ATTEND Neurological Surgery
DX: M47.27 Other spondylosis with radiculopathy, lumbosacral region (principal); M43.16 Spondylolisthesis, lumbar region; M48.061 Spinal stenosis, lumbar region without neurogenic claudication
CPT/HCPCS: 72148

== ENCOUNTER → 2020-09-06 | Outpatient (CLI) | payer BC ==
[~2020-09-06] MED LIST changes: -ISOS30TA4 PO; +ISOS30TA68 PO; -LISI-334 PO; +LISI20TA18 PO; +METH-562 PO; -METH750T2 PO
--- NOTE | 2020-09-06 10:49 | RAD ---
MR#: [id number] Date of Study: 09/06/2020 Ordering Physician: ALFREDA RUBIO, Referring Physician: ALFREDA RUBIO, Tech: Ramez De La Cruz MBA, RDMS, RVT, RDCS, RTR APPROVED REPORT Patient Location : OUT-PATIENT Indications Lower Extremity Edema : Bilateral Findings The right great saphenous vein measures 6.5 mm and the left great saphenous vein measures 6.8 mm. Bilateral greater and lesser saphenous veins did not show any evidence of reflux Critical Notification Critical Value: No <Conclusion> 1. No evidence of bilateral lower extremity reflux. Signed by : Christiano Snider, Electronically Approved : 09/06/2020 10:48:53
== END ==
LOC: US 08:16
PROVIDERS: ATTEND Internal Medicine Cardiovascular Disease
DX: R60.0 Localized edema (principal)
CPT/HCPCS: 93970

== ENCOUNTER → 2021-07-18 | Outpatient (CLI) | payer BC ==
[~2021-07-18] MED LIST changes: +BUME1TAB3 PO; +CYCL10TA19 PO; -CYCL10TA2 PO; +IOHEXOL 180 MG/ML 10 ML VIAL. ONE; +LOSA-73 PO; +METF500T16 PO; +PREG50CA91 PO; +methylPREDNISolone ACETATE 40 MG/ML VIAL. ONE; +methylPREDNISolone ACETATE 80 MG/ML VIAL. ONE
--- NOTE | 2021-07-18 12:49 | PDOC1 ---
INITIAL PAIN CONSULT DATE OF SERVICE: DOS: DATE: 07/18/21 TIME: 12:42 CHIEF COMPLAINT: Chief Complaint: Low back and left lower extremity pain HISTORY OF PRESENT ILLNESS: 55-year-old female presents with history of pain in the low back left lower extremity primarily in the left lower extremity more than the low back but occasionally in the back as well for several years patient reports the pain began in February of last summer 2019 gently but not the result of any specific injury or accident that she is aware of. Patient reports numbness in both feet especially on the left side traveling down the leg mostly the posterior gluteus posterior thigh posterior calf again intermittently in the leg but always present in the left foot much worse with weightbearing standing walking better with sitting or laying down but awakens her from sleep least 3-4 times at night on the left leg patient reports some pain in the right leg is in foot as well but very minimal compared to the left patient reports numbness in the left hand also patient reports the pain in the back and leg on the left side is worse with walking does not affect her ability to walk and she is using a cane in her right hand and she has it with her today. Patient has had physical therapy in the past also is doing stretching strengthening on her own especially can and has had epidural steroid injection at outside facility approximately a year ago which did help significantly patient reports he taking gabapentin she is tried pregabalin as well of these of the making her nauseous he has decreased the dose on her gabapentin from her neurologist currently. Patient rates her disability rating 0-10 10 being the worst is a 6 with family home responsibilities 7 with recreation 9 with social activity 10 with occupational activities 5 with self-care and 5 light support activities. Describes pain as sharp and stabbing throbbing in the back and leg changes during the day worse with walking standing tingling in the foot as well as aching in the back and burning in the leg and foot on the left side. Patient reports no bowel or bladder incontinence no loss of motor function completely but significant fatigability of the left leg with weightbearing. PAST MEDICAL HISTORY: PMH: Hypertension, shortness of breath arthritis, obesity PREVIOUS SURGERIES: Past Surgical Hx: Right total hip replacement, 2017 and 2019 with anterior cervical discectomy and fusion CURRENT MEDICATIONS: Current Meds: Active Scripts Medications Dose Route/Sig Max Daily Dose Days Date Category Losartan Potassium 50 Mg Tablet 50 Mg PO DAILY 07/18/21 Reported Metformin Hcl 500 Mg Tablet 500 Mg PO DAILY 07/18/21 Reported Bumetanide 1 Mg Tablet Unknown Dose PO BID 07/18/21 Reported Lyrica (Pregabalin) 50 Mg Capsule 1 Cap PO DAILY 07/18/21 Reported Amlodipine Besylate 10 Mg Tablet 10 Mg PO DAILY 30 12/09/18 Rx Atorvastatin Calcium 10 Mg Tablet 10 Mg PO QHS 30 12/09/18 Rx ALLERGIES; Allergies: Coded Allergies: No Known Drug Allergies (Unverified , 05/30/19) FAMILY HISTORY: Family Hx: Diabetes, hypertension, heart disease SOCIAL HISTORY: Social Hx: Patient is under alcohol does not use any illegal illicit recreational drugs does smoke cigarettes less than a pack a day and has for 40 years continues smoke he is single lives locally in [place] has 1 child living at home. REVIEW OF SYSTEMS: ROS: Positive for those items mentioned in history of present illness, all systems are reviewed, otherwise negative ,and are complete full and well-documented on patient's chart. PHYSICAL EXAM: VS: Blood pressure is 205/93 pulse 50 respirations 18 temperature 98.1 F height is 5 foot 5 inches weight is 273 pounds PE: PHYSICAL EXAMINATION: GENERAL: The patient is awake, alert, oriented, appropriate, very pleasant in demeanor HEENT: Shows normocephalic, atraumatic. Extraocular movements are intact and symmetrical. Oral cavity: Mucous membranes moist and pink. Dentition is intact. NECK: Shows anterior throat supple without palpable lymphadenopathy noted. Swallow reflex symmetrical. CHEST: Shows normal on inspection. Breath sounds are clear bilaterally, distant but no rales or rhonchi auscultated. HEART: Shows S1, S2 clear. No murmurs auscultated. ABDOMEN: Soft, nontender, nondistended, obese. No palpable organomegaly is noted. No rebound or guarding demonstrated. BACK: Shows spine grossly in the midline. Normal-appearing cervical lordotic curvature. Cervical paraspinous muscles show symmetrical with inspection, palpation some moderate tenderness diffusely in the middle and lower distribution the paraspinous muscles also in superior medial trapezius but only diffusely without significant radiation. Patient shows full rotation motion cervical spine both laterally as well as extension and flexion without significant limitation or pain reported. There is slightly increased thoracic kyphosis, some minor flattening of the lumbar lordotic curvature. Lumbar paraspinous muscles show symmetrical on inspection, on palpation shows some moderate tenderness diffusely throughout the upper, middle and lower distribution of the paraspinous muscles bilaterally and also into the lower thoracic paraspinous musculature, firm and tender, without specific trigger points, without radiation of pain. The patient has good rotational motion of the lumbar spine, both laterally as well as extension and flexion without significant difficulty. No tenderness over the spinous processes, sacrum or sacroiliac regions. EXTREMITIES: Lower extremities show deep tendon reflexes 1+ in the patellar and tendo calcaneus tendons. Motor exam is 4 on a scale of 5 with right dorsiflexion, extension, quadriceps and hamstring flexion and 3/5 on the left. Peripheral pulses are 1 posterior tibial. 2+ peripheral edema is noted bilaterally in the ankles extending two thirds distance to the knee on the anterior tibia bilaterally. Lower extremities are warm and dry to touch, equal in color and appearance. Straight leg raise noted to be negative, left side is mildly positive at 35 to 40 degrees decreased with knee flexion. Gaenslen's and José's maneuvers are negative bilaterally. The patient is able to stand, has difficulty trying to stand on 1 foot or the other by itself is significant difficulty getting up from seated position and uses the arms of the chair is using a cane in her right hand has significant antalgic gait favoring the left lower extremity as a very slow deliberate gait as well. SKIN: Shows warm and dry, good turgor. No edema. No sores, rashes or bruising throughout. IMPRESSION: Impression: 55-year-old female with approximate 18-month history and left lower extremity pain MRI scan from May 2020 showing significant spondylosis L4-5 levels with multiple level lumbar spondylosis most prominent L4-5 with grade 1 anterolisthesis L4 on L5 with mild to moderate canal narrowing with severe subarticular recess narrowing. Obesity Cigarette smoking Arthritis Hypertension Shortness of breath Plan: After discussed with the patient including conservative management is continued physical therapy interventional techniques. Patient elects interventional techniques as she has had good success with these in the past. We discussed a lumbar epidural steroid junctions description as well as anatomical models described procedure. Risks were discussed including but not limited to: Bleeding, infection, possibility of epidural hematoma and subsequent neurological compromise, dural puncture, headaches, spinal cord and/or nerve damage, side effects of steroid medication, and poor results regarding pain control. Patient understands and wished to proceed. Patient return to clinic in approximate 4 weeks for follow-up, was counseled return appointment, typical, and side effect to be aware of. Procedure is lumbar epidural steroid injection under local anesthetic using sterile prep and drape at the L5-S1 level using C-arm fluoroscopic guidance in both AP and lateral views medications injected is 120 mg Depo-Medrol +10mL preservative-free normal saline and 2 mL contrast- condition at discharge is stable patient tolerated procedure well had no complications. NADINE HATHAWAY MD Jul 18, 2021 12:49
--- NOTE | 2021-07-18 12:50 | PDOC4 ---
Procedure Note: ICD 10 Code: ICD 10 Code: M4 7.816 M4 7.817 M54.17 M51.87 Procedure Note: Patient was consented for lumbar epidural steroid injection with fluoroscopic guidance. Risks were discussed including but not limited to: Bleeding, infection, possibility of epidural hematoma and subsequent neurological compro mise, dural puncture, headaches, spinal cord and/or nerve damage, side effects of steroid medication, and poor results regarding pain control. Patient understands and wished to proceed. Procedure is lumbar epidural steroid injection under local anesthetic using sterile prep and drape at the L5-S1 level using C-arm fluoroscopic guidance in both AP and lateral views medications injected is 120 mg Depo-Medrol +10mL preservative-free normal saline and 2 mL contrast- condition at discharge is stable patient tolerated procedure well had no complications. NADINE HATHAWAY MD Jul 18, 2021 12:50
== END | disposition home or self-care (01) ==
LOC: PNCL 11:58
PROVIDERS: ATTEND Anesthesiology
DX: M51.17 Intervertebral disc disorders with radiculopathy, lumbosacral region (principal); M47.27 Other spondylosis with radiculopathy, lumbosacral region; I10 Essential (primary) hypertension; E78.00 Pure hypercholesterolemia, unspecified; G47.30 Sleep apnea, unspecified; E66.9 Obesity, unspecified; M19.90 Unspecified osteoarthritis, unspecified site; F41.9 Anxiety disorder, unspecified; F32.9 Major depressive disorder, single episode, unspecified; F17.210 Nicotine dependence, cigarettes, uncomplicated; Z79.84 Long term (current) use of oral hypoglycemic drugs; Z79.899 Other long term (current) drug therapy; Z98.890 Other specified postprocedural states; Z82.49 Family history of ischemic heart disease and other diseases of the circulatory system; Z83.3 Family history of diabetes mellitus
CPT/HCPCS: 62323; J1030; J1040; Q9965

== ENCOUNTER → 2021-08-22 | Outpatient (CLI) | payer BC ==
--- NOTE | 2021-08-22 12:06 | PDOC ---
Progress Note - Pain Clinic Date of Service: DOS: DATE: 08/22/21 TIME: 12:01 Diagnosis: Dx: Lumbar radiculopathy lumbar degenerative disease and lumbar spondylosis Osteoarthritis bilateral hands History or Present Illness: HPI: 55-year-old female returns for follow-up status post lumbar epidural steroid injection x1. Patient report about 80% improvement after the first injection for 1-1/2 months patient reports pain returning now in the low back and in the left lower extremity posterior gluteus posterior thigh patient reports is worse with walking standing changing positions Tribes aching sharp dull tight shooting cramping at times stabbing and burning and can be severe when she first gets up or when she is been walking quite a bit patient reports prior to that though she is doing much better with walking doing household activities try with greater ease and comfort sleeping much better at night is waking her from sleep about once a night now in the low back the left leg. Patient also has complaint of bilateral arthritic pain in the hands and knuckles especially with repetitive use and certainly first in the morning where it feels stiff and tight and swollen patient is taking [id number] analgesics such as Motrin and Tylenol which helped but only by about 25%. Patient rates her back pain is a 6 with is worst 5 on average 3 at its least is a 5 today. Patient reports no bowel or bladder incontinence. Patient reports significant tingling and numbness in the left foot as well. Physical Exam: VS: Blood pressure is 202/86 pulse 64 respirations 18 temperature 98.1 F height 5 feet 5 inches weight is 271 pounds. PE: PHYSICAL EXAMINATION: GENERAL: The patient is awake, alert, oriented, appropriate, very pleasant in demeanor HEENT: Shows normocephalic, atraumatic. Extraocular movements are intact and symmetrical. Oral cavity: Mucous membranes moist and pink. Dentition is intact. NECK: Shows anterior throat supple without palpable lymphadenopathy noted. Swallow reflex symmetrical. CHEST: Shows normal on inspection. Breath sounds are clear bilaterally, distant no rales or rhonchi. HEART: Shows S1, S2 clear. No murmurs auscultated. ABDOMEN: Soft, nontender, nondistended, obese. No palpable organomegaly is noted. BACK: Shows spine grossly in the midline. Normal-appearing cervical lordotic curvature. There is slightly increased thoracic kyphosis, some minor flattening of the lumbar lordotic curvature. Lumbar paraspinous muscles show symmetrical on inspection, on palpation shows some moderate tenderness diffusely throughout the upper, middle and lower distribution of the paraspinous muscles, but without specific trigger points, without radiation of pain. The patient has good rotational motion of the lumbar spine, both laterally as well as extension and flexion without significant difficulty. EXTREMITIES: Lower extremities show deep tendon reflexes 1+ in the patellar and tendo calcaneus tendons. Motor exam is 5 on a scale of 5 with right dorsiflexion, extension, quadriceps and hamstring flexion and 4/5 on the left. Peripheral pulses are 1+ posterior tibial. No peripheral edema is noted bilate rally. Lower extremities are warm and dry to touch, equal in color and appearance. Patient upper extremity show deep tendon reflexes 2+ in the bicep tricep tendons motor exam is strong with grips strength rated at 4-5 but equal and symmetrical patient has moderate tenderness over the medic carpal phalangeal joints bilaterally especially the first joint and index finger on both hands with some minor appearance of swelling compared to the other knuckles bilaterally. SKIN: Shows warm and dry, good turgor. No edema. No sores, rashes or bruising throughout. Procedure: Procedure: Options were discussed with the patient. Patient chart reviews her current medication regimen updated current review of systems updated today as well. We will proceed with a lumbar epidural steroid injection today with fluoroscopic guidance. Risks were discussed including but not limited to: Bleeding, infection, possibility of epidural hematoma and subsequent neurological compromise, dural puncture, headaches, spinal cord and/or nerve damage, side effects of steroid medication, and poor results regarding pain control. Patient understands and wished to proceed. Patient return to clinic in approximately 2 weeks for follow-up, was counseled as return appointment, activity level, and side effect to be aware of. Also, will start patient on meloxicam 15 mg 1 tablet daily patient was given instructions well side effects aware with the medication. Medication Injected: Med Injected: Procedure is lumbar epidural steroid injection under local anesthetic using sterile prep and drape at the L5-S1 level using C-arm fluoroscopic guidance in both AP and lateral views medications injected is 120 mg Depo-Medrol +10mL preservative-free normal saline and 2 mL contrast- condition at discharge is stable patient tolerated procedure well had no complications. Condition at Discharge: Condition at Discharge: Condition at discharge is stable, patient tolerated the procedure well and had no complications. NADINE HATHAWAY MD Aug 22, 2021 12:06
--- NOTE | 2021-08-22 12:07 | PDOC4 ---
Procedure Note: ICD 10 Code: ICD 10 Code: M54.17 M51.87 M4 8.07 Procedure Note: Patient was consented for lumbar epidural steroid injection with fluoroscopic guidance. Risks were discussed including but not limited to: Bleeding, infection, possibility of epidural hematoma and subsequent neurological compromise, dural puncture, headaches, spinal cord and/or nerve damage, side effects of steroid medication, and poor results regarding pain control. Patient understands and wished to proceed. Procedure is lumbar epidural steroid injection under local anesthetic using jing rile prep and drape at the L5-S1 level using C-arm fluoroscopic guidance in both AP and lateral views medications injected is 120 mg Depo-Medrol +10mL preservative-free normal saline and 2 mL contrast- condition at discharge is stable patient tolerated procedure well had no complications. NADINE HATHAWAY MD Aug 22, 2021 12:07
== END | disposition home or self-care (01) ==
LOC: PNCL 11:24
PROVIDERS: ATTEND Anesthesiology
DX: M51.16 Intervertebral disc disorders with radiculopathy, lumbar region (principal); M47.26 Other spondylosis with radiculopathy, lumbar region; M19.042 Primary osteoarthritis, left hand; M19.041 Primary osteoarthritis, right hand; M48.07 Spinal stenosis, lumbosacral region; I10 Essential (primary) hypertension; E78.00 Pure hypercholesterolemia, unspecified; E66.9 Obesity, unspecified; G47.30 Sleep apnea, unspecified; F41.9 Anxiety disorder, unspecified; F32.9 Major depressive disorder, single episode, unspecified; F17.210 Nicotine dependence, cigarettes, uncomplicated; Z79.84 Long term (current) use of oral hypoglycemic drugs; Z79.899 Other long term (current) drug therapy; Z98.890 Other specified postprocedural states; Z82.49 Family history of ischemic heart disease and other diseases of the circulatory system
CPT/HCPCS: 62323; J1030; J1040; Q9965

== ENCOUNTER → 2021-09-26 | Outpatient (CLI) | payer MEDICARE, BC ==
[~2021-09-26] MED LIST changes: -methylPREDNISolone ACETATE 40 MG/ML VIAL. ONE
--- NOTE | 2021-09-26 11:07 | PDOC ---
Progress Note - Pain Clinic Date of Service: DOS: DATE: 09/26/21 TIME: 11:03 Diagnosis: Dx: Lumbar radiculopathy with lumbar degenerative disc disease and lumbar spondylosis Osteoarthritis Hypertension History or Present Illness: HPI: 55-year-old female returns for follow-up status post lumbar epidural steroid injection last seen August 22, 2021 patient did very well with approximately 75% improvement in the low back and left lower extremity pain. Patient reports pain is beginning to return only to about a 60% improvement level at this point radiating low back posterior gluteus posterior thigh on the left into the foot as well as in the right foot at times patient report is radiating tingling burning stabbing at times shooting at times sharp at times aching in the back at all times on and off in intensity with significant pain in the right foot now which is new. Patient reports no motor or sensory deficits but feels unstable on her feet at times with walking or standing more than about 20 to 30 minutes patient rates her pain as a 5-6 on scale 10 at its worst 4-5 on average 4 at its least and is a 4 today. Patient reports no bowel or bladder incontinence no loss of motor function but again significant fatigability especially with the left leg. Patient's blood pressure was elevated on 3 different readings today with systolic over 200 and we discussed the importance of this and the importance of regulating this with her primary care physician as she is on antihypertensive medications currently and the importance of pain in contributing to hypertension as well. Patient understands will follow up with her primary physician regarding this. Physical Exam: VS: Blood pressure is 201/88 pulse 59 respirations 18 temperature 96 F height is 5 feet 5 inches weight is 267 pounds PE: PHYSICAL EXAMINATION: GENERAL: The patient is awake, alert, oriented, appropriate, very pleasant in demeanor HEENT: Shows normocephalic, atraumatic. Extraocular movements are intact and symmetrical. Oral cavity: Mucous membranes moist and pink. Dentition is intact. NECK: Shows anterior throat supple without palpable lymphadenopathy noted. Swallow reflex symmetrical. CHEST: Shows normal on inspection. Breath sounds are clear bilaterally, distant but no rales or rhonchi. HEART: Shows S1, S2 clear. No murmurs auscultated. ABDOMEN: Soft, nontender, nondistended. No palpable organomegaly is noted. BACK: Shows spine grossly in the midline. Normal-appearing cervical lordotic curvature. There is increased thoracic kyphosis, some flattening of the lumbar lordotic curvature. Lumbar paraspinous muscles show symmetrical on inspection, on palpation shows some moderate tenderness diffusely throughout the upper, middle and lower distribution of the paraspinous muscles without specific trigger points, without radiation of pain. The patient has good rotational motion of the lumbar spine, both laterally as well as extension and flexion without significant difficulty. No tenderness over the spinous processes, sa cale or sacroiliac regions. EXTREMITIES: Lower extremities show deep tendon reflexes 1 in the patellar and tendo calcaneus tendons. Motor exam is 5 on a scale of 5 with right dorsiflexion, extension, quadriceps and hamstring flexion and 4/5 on the left. Peripheral pulses are 1+ posterior tibial. No peripheral edema is noted bilaterally. Lower extremities are warm and dry. SKIN: Shows warm and dry, good turgor. No edema. No sores, rashes or bruising throughout. Procedure: Procedure: Options were discussed with the patient. Patient chart reviews her current medication regimen updated current review of systems updated today as well. We will proceed with a lumbar epidural steroid injection today with fluoroscopic guidance. Risks were discussed including but not limited to: Bleeding, infection, possibility of epidural hematoma and subsequent neurological compromise, dural puncture, headaches, spinal cord and/or nerve damage, side effects of steroid medication, and poor results regarding pain control. Patient understands and wished to proceed. Patient will return to the clinic in approximately 2 weeks for follow-up, was counseled as to return appointment, activity level, and side effect to be aware of. Medication Injected: Med Injected: Procedure is lumbar epidural steroid injection under local anesthetic using ster ile prep and drape at the L5-S1 level using C-arm fluoroscopic guidance in both AP and lateral views medications injected is 120 mg Depo-Medrol +10mL preservative-free normal saline and 2 mL contrast- condition at discharge is stable patient tolerated procedure well had no complications. Condition at Discharge: Condition at Discharge: Condition at discharge stable, patient tolerated the procedure well and had no complications. NADINE HATHAWAY MD Sep 26, 2021 11:07
--- NOTE | 2021-09-26 11:08 | PDOC4 ---
Procedure Note: ICD 10 Code: ICD 10 Code: M54.17 m51.87 M4 7.817 Procedure Note: Patient was consented for lumbar epidural steroid injection with fluoroscopic guidance. Risks were discussed including but not limited to: Bleeding, infection, possibility of epidural hematoma and subsequent neurological compromise, dural puncture, headaches, spinal cord and/or nerve damage, side effects of steroid medication, and poor results regarding pain control. Patient understands and wished to proceed. Procedure is lumbar epidural steroid injection under local anesthetic using st erile prep and drape at the L5-S1 level using C-arm fluoroscopic guidance in both AP and lateral views medications injected is 120 mg Depo-Medrol +10mL preservative-free normal saline and 2 mL contrast- condition at discharge is stable patient tolerated procedure well had no complications. NADINE HATHAWAY MD Sep 26, 2021 11:08
== END | disposition home or self-care (01) ==
LOC: PNCL 10:18
PROVIDERS: ATTEND Anesthesiology
DX: M51.16 Intervertebral disc disorders with radiculopathy, lumbar region (principal); M47.26 Other spondylosis with radiculopathy, lumbar region; I10 Essential (primary) hypertension; M19.90 Unspecified osteoarthritis, unspecified site; E78.00 Pure hypercholesterolemia, unspecified; E66.9 Obesity, unspecified; G47.30 Sleep apnea, unspecified; F41.9 Anxiety disorder, unspecified; F32.9 Major depressive disorder, single episode, unspecified; F17.210 Nicotine dependence, cigarettes, uncomplicated; Z79.84 Long term (current) use of oral hypoglycemic drugs; Z79.899 Other long term (current) drug therapy; Z98.890 Other specified postprocedural states; Z82.49 Family history of ischemic heart disease and other diseases of the circulatory system; Z88.8 Allergy status to other drugs, medicaments and biological substances
CPT/HCPCS: 62323; J1040; Q9965